=== PATIENT | female | born 1945 | race Caucasian/White ===

== ENCOUNTER → 2017-04-08 | Outpatient (CLI) | payer MEDICARE ==
[~2017-04-08] MED LIST: ACET325 PO; ALBU3IS INH; ALBU90OI; ALBU90OI INH; AMLO5 PO; ANORO ELLIPTA1 EACH; ANORO ELLIPTA1 EACH INH; ATOR40TA PO; BECLOMETHASONE; BUME2 PO; CALACE667G PO; CALCA500CH PO; Calcium Carb 51 EACH PO; Cinnamon500 MG PO; DALT10I SC; DARB200I SC; DILT120 PO; ELIQUIS5 MG PO; GABA100 PO; GABA300; HERBAL MEDS; HUMALOG JU100 UNIT/1 SC; HYDACE5 PO; HYDCHL25 PO; HYDR1TAB94 PO; Hair, Skin & N1 EACH PO; LABE200; LABE200 PO; LEVOFLOXACIN250 MG PO; LISHYD1012 PO; LOSA50 PO; Lasix40 MG PO; MOMENI; MULVITA; Mirapex0.25 MG PO; NORMODYNE; NYST100P TOP; Neurontin 300300 MG PO; Norco 5-325 Ta1 EACH PO; ONDA4 PO; OXYC5; OXYC5 PO; Omeprazole20 M1 PO; Oxycodone HCl5 M1 PO; PANT40 PO; PRAMIPEXOLE D0.25 MG PO; PRAV20 PO; PROHEAL PO; Pantoprazole So40 MG PO; Percocet 5-3251 EACH PO; QVAR; RANI150 PO; ROPI.25 PO; ROPI1 PO; ROXICODONE5 MG PO; Renvela800 MG PO; SACC250C PO; SERT100 PO; SERT50 PO; SERTRALINE HCL; SEVEC800 PO; SIMV5 PO; SODBIC650 PO; TIOT18; TRAM50 PO; VERA240ERB; VOL-NATE TABLE1 EACH; Verapamil ER100 MG PO; WARF3 PO
== END | disposition home or self-care (01) ==
LOC: LAB EV 11:22
DX: R30.0 Dysuria (principal)
CPT/HCPCS: 87077; 87086; 87186

== ENCOUNTER → 2017-05-16 | Outpatient (CLI) | payer MEDICARE | END | disposition home or self-care (01) | LOC: LAB EV 11:36 | DX: N30.01 Acute cystitis with hematuria (principal) | CPT/HCPCS: 87077; 87086; 87186 ==

== ENCOUNTER → 2017-07-06 | Outpatient (CLI) | payer MEDICARE ==
[~2017-07-06] MED LIST changes: -ALBU3IS INH; -AMLO5 PO; -ATOR40TA PO; -Calcium Carb 51 EACH PO; -DILT120 PO; -ELIQUIS5 MG PO; -GABA100 PO; -HUMALOG JU100 UNIT/1 SC; -Hair, Skin & N1 EACH PO; -LEVOFLOXACIN250 MG PO; -Lasix40 MG PO; -Mirapex0.25 MG PO; -ONDA4 PO; -OXYC5; -OXYC5 PO; -Oxycodone HCl5 M1 PO; -PANT40 PO; -PRAMIPEXOLE D0.25 MG PO; -PROHEAL PO; -Pantoprazole So40 MG PO; -ROPI1 PO; -ROXICODONE5 MG PO; -Renvela800 MG PO; -SACC250C PO; -SERT50 PO; +VOL-CARE RX TA1 EACH PO; -VOL-NATE TABLE1 EACH; -WARF3 PO
[2017-07-06 11:05] LABS: Bilirubin, Urine Neg (Neg); Blood, Urine 4+ (Neg); Glucose Qualitative, Urine Neg (Neg); Ketones, Urine Neg (Neg); Leukocyte Esterase, Urine 3+ (Neg); Nitrite, Urine Neg (Neg); Protein, Urine 3+ (Neg); Specific Gravity, Urine 1.015 (1.003-1.022); Urobilinogen, Urine NORM (Normal)
[2017-07-06 11:37] LABS: Appearance, Urine Cloudy (Clear); Color, Urine Yellow (P-Yellow)
[2017-07-06 11:38] LABS: Squamous Epithelial Cells Few /hpf (Few); White Blood Cells, Urine TNTC /hpf (0-5)
[2017-07-06 11:40] LABS: Red Blood Cells, Urine 25-50 /hpf (0-2)
[2017-07-06 11:41] LABS: Bacteria Rare /hpf
== END | disposition home or self-care (01) ==
LOC: LAB SHORT 10:52 → LAB 10:52
PROVIDERS: Internal Medicine
DX: R39.15 Urgency of urination (principal)
CPT/HCPCS: 81001; 87086

== ENCOUNTER → 2017-07-17 | Outpatient (CLI) | payer MEDICARE ==
[2017-07-17 12:42] LABS: Appearance, Urine Clear (Clear); Bilirubin, Urine Neg (Neg); Blood, Urine 2+ (Neg); Color, Urine Yellow (P-Yellow); Glucose Qualitative, Urine Neg (Neg); Ketones, Urine Neg (Neg); Leukocyte Esterase, Urine 1+ (Neg); Nitrite, Urine Neg (Neg); Protein, Urine 3+ (Neg); Specific Gravity, Urine 1.015 (1.003-1.022); Urobilinogen, Urine NORM (Normal)
[2017-07-17 12:54] LABS: Bacteria Rare /hpf; Squamous Epithelial Cells Few /hpf (Few)
== END ==
LOC: LAB 10:20 → LAB SHORT 10:20
PROVIDERS: Internal Medicine
DX: N39.0 Urinary tract infection, site not specified (principal)
CPT/HCPCS: 81001; 87077; 87086

== ENCOUNTER → 2017-08-12 | Outpatient (CLI) | payer MEDICARE ==
[2017-08-12 10:22] LABS: Bilirubin, Urine Neg (Neg); Blood, Urine 5+ (Neg); Glucose Qualitative, Urine Neg (Neg); Ketones, Urine Neg (Neg); Leukocyte Esterase, Urine 3+ (Neg); Nitrite, Urine Neg (Neg); Protein, Urine 3+ (Neg); Urobilinogen, Urine NORM (Normal)
[2017-08-12 10:33] LABS: Appearance, Urine Cloudy (Clear); Color, Urine Brown (P-Yellow); Red Blood Cells, Urine TNTC /hpf (0-2)
[2017-08-12 10:34] LABS: White Blood Cells, Urine 25-50 /hpf (0-5)
[2017-08-12 10:35] LABS: Squamous Epithelial Cells Few /hpf (Few)
[2017-08-12 10:36] LABS: Bacteria Rare /hpf; Renal Epithelial Rare /hpf (0-Rare); Transitional Epithelial Cells Few /hpf (0-Rare)
== END | disposition home or self-care (01) ==
LOC: LAB DAV 10:08
PROVIDERS: Internal Medicine
DX: N39.0 Urinary tract infection, site not specified (principal)
CPT/HCPCS: 81001

== ENCOUNTER → 2017-09-19 | Outpatient (CLI) | payer MEDICARE ==
[2017-09-19 11:51] LABS: Bilirubin, Urine Neg (Neg); Blood, Urine 2+ (Neg); Glucose Qualitative, Urine Neg (Neg); Ketones, Urine Neg (Neg); Leukocyte Esterase, Urine 2+ (Neg); Nitrite, Urine Neg (Neg); Protein, Urine 3+ (Neg); Specific Gravity, Urine 1.015 (1.003-1.022); Urobilinogen, Urine NORM (Normal)
[2017-09-19 12:02] LABS: Appearance, Urine Clear (Clear); Color, Urine Pale Yellow (P-Yellow)
[2017-09-19 12:04] LABS: Bacteria Few /hpf; Squamous Epithelial Cells Few /hpf (Few)
== END ==
LOC: LAB SHORT 10:28 → LAB EV 10:28
PROVIDERS: Urology
DX: Z09 Encounter for follow-up examination after completed treatment for conditions other than malignant neoplasm (principal); Z87.440 Personal history of urinary (tract) infections
CPT/HCPCS: 81001; 87086

== ENCOUNTER → 2017-10-26 | Outpatient (CLI) | payer MEDICARE ==
[2017-10-26 10:12] LABS: BASOPHILS ABSOLUTE AUTO 0.05 K/mm3 (0.00-0.23); BASOPHILS PERCENT AUTO 1 % (0-2); EOSINOPHILS ABSOLUTE AUTO 0.38 K/mm3 (0.00-0.68); EOSINOPHILS PERCENT AUTO 4 % (0-6); Hematocrit 30.7 % (33.0-51.0); Hemoglobin 9.4 g/dL (11.5-16.0); IMMATURE GRAN ABSOLUTE AUTO 0.11 K/mm3 (0.00-0.10); IMMATURE GRAN PERCENT AUTO 1 % (0-1); LYMPHOCYTES ABSOLUTE AUTO 1.32 K/mm3 (0.84-5.20); LYMPHOCYTES PERCENT AUTO 12 % (21-46); MONOCYTES ABSOLUTE AUTO 0.51 K/mm3 (0.16-1.47); MONOCYTES PERCENT AUTO 5 % (4-13); Mean Corpuscular HGB 30.5 pg (26.0-34.0); Mean Corpuscular HGB Conc 30.6 g/dL (31.5-36.5); Mean Corpuscular Volume 100 fL (80-100); Mean Platelet Volume 9.9 fL (9.1-12.4); NEUTROPHILS PERCENT AUTO 78 % (41-73); Platelet Count 224 K/mm3 (150-400); RDW Coefficient Variation 19.1 % (11.7-14.2); RDW Standard Deviation 69.6 fL (35.1-46.3); Red Blood Cell Count 3.08 M/mm3 (3.80-5.20); White Blood Cell Count 10.77 K/mm3 (4.00-11.30)
== END | disposition home or self-care (01) ==
LOC: LAB SHORT 09:51 → LAB 09:51
PROVIDERS: Internal Medicine
DX: I50.9 Heart failure, unspecified (principal)
CPT/HCPCS: 83880; 85025

== ENCOUNTER 2017-12-04 14:58 | Inpatient (IN) | payer MEDICARE ==
[~2017-12-04] VITALS: Ht 157.5 cm; Wt 101.5 kg
[~2017-12-04 14:58] MED LIST changes: +AMLO5 PO; +ATOR40TA PO; +DILT120 PO; +ELIQUIS5 MG PO; +GABA100 PO; +Pantoprazole So40 MG PO; +ROXICODONE5 MG PO; +SERT50 PO; -VOL-CARE RX TA1 EACH PO; +VOL-NATE TABLE1 EACH
[2017-12-04 16:00] LABS: BASOPHILS ABSOLUTE AUTO 0.03 K/mm3 (0.00-0.23); BASOPHILS PERCENT AUTO 0 % (0-2); EOSINOPHILS ABSOLUTE AUTO 0.32 K/mm3 (0.00-0.68); EOSINOPHILS PERCENT AUTO 4 % (0-6); Hematocrit 28.2 % (33.0-51.0); Hemoglobin 8.6 g/dL (11.5-16.0); IMMATURE GRAN ABSOLUTE AUTO 0.03 K/mm3 (0.00-0.10); IMMATURE GRAN PERCENT AUTO 0 % (0-1); LYMPHOCYTES ABSOLUTE AUTO 2.53 K/mm3 (0.84-5.20); LYMPHOCYTES PERCENT AUTO 31 % (21-46); MONOCYTES ABSOLUTE AUTO 0.76 K/mm3 (0.16-1.47); MONOCYTES PERCENT AUTO 9 % (4-13); Mean Corpuscular HGB 31.4 pg (26.0-34.0); Mean Corpuscular HGB Conc 30.5 g/dL (31.5-36.5); Mean Corpuscular Volume 103 fL (80-100); Mean Platelet Volume 9.6 fL (9.1-12.4); NEUTROPHILS PERCENT AUTO 54 % (41-73); Platelet Count 211 K/mm3 (150-400); RDW Coefficient Variation 18.7 % (11.7-14.2); RDW Standard Deviation 70.2 fL (35.1-46.3); Red Blood Cell Count 2.74 M/mm3 (3.80-5.20); White Blood Cell Count 8.07 K/mm3 (4.00-11.30)
[2017-12-04 16:17] LABS: Prothrombin Time Results 57.7 Sec (9.7-11.5)
[2017-12-04 16:25] LABS: Albumin, Blood 2.7 g/dL (3.4-5.0); Albumin/Globulin Ratio 0.6 (0.8-1.8); Bilirubin, Total 0.5 mg/dL (0.1-1.0); Bun/Creatinine Ratio 3.8 (12.0-20.0); Calcium, Blood 8.7 mg/dL (8.5-10.1); Creatinine, Blood 2.6 mg/dL (0.40-1.00); Globulin, Blood 4.5 g/dL (2.2-4.0); Potassium, Blood 3.5 mmol/L (3.5-5.5); Total Protein, Blood 7.2 g/dL (6.4-8.2)
[2017-12-04 16:30] LABS: International Normalized Ratio 6.21
[2017-12-04] MEDS ORDERED: PANT40 PO (19:28)
[2017-12-04] MEDS ORDERED: DILT120 PO (19:30)
[2017-12-04] MEDS ORDERED: ROPI1 PO (19:30)
[2017-12-04] MEDS ORDERED: OXYC5 (19:31)
[2017-12-04] MEDS ORDERED: Hair, Skin & N1 EACH PO (19:32)
[2017-12-04 22:16] LABS: Hematocrit 27.5 % (33.0-51.0); Hemoglobin 8.6 g/dL (11.5-16.0)
[2017-12-05 03:56] LABS: BASOPHILS ABSOLUTE AUTO 0.05 K/mm3 (0.00-0.23); BASOPHILS PERCENT AUTO 1 % (0-2); EOSINOPHILS ABSOLUTE AUTO 0.36 K/mm3 (0.00-0.68); EOSINOPHILS PERCENT AUTO 5 % (0-6); Hemoglobin 7.6 g/dL (11.5-16.0); IMMATURE GRAN ABSOLUTE AUTO 0.03 K/mm3 (0.00-0.10); IMMATURE GRAN PERCENT AUTO 0 % (0-1); LYMPHOCYTES ABSOLUTE AUTO 2.89 K/mm3 (0.84-5.20); LYMPHOCYTES PERCENT AUTO 36 % (21-46); MONOCYTES ABSOLUTE AUTO 0.87 K/mm3 (0.16-1.47); MONOCYTES PERCENT AUTO 11 % (4-13); Mean Corpuscular HGB 31.7 pg (26.0-34.0); Mean Corpuscular HGB Conc 30.4 g/dL (31.5-36.5); Mean Corpuscular Volume 104 fL (80-100); Mean Platelet Volume 9.7 fL (9.1-12.4); NEUTROPHILS ABSOLUTE AUTO 3.82 K/mm3 (1.96-9.15); NEUTROPHILS PERCENT AUTO 48 % (41-73); Platelet Count 177 K/mm3 (150-400); RDW Coefficient Variation 18.8 % (11.7-14.2); RDW Standard Deviation 71.7 fL (35.1-46.3); White Blood Cell Count 8.02 K/mm3 (4.00-11.30)
[2017-12-05 04:15] LABS: Albumin, Blood 2.7 g/dL (3.4-5.0); Albumin/Globulin Ratio 0.6 (0.8-1.8); Bilirubin, Total 0.6 mg/dL (0.1-1.0); Calcium, Blood 8.7 mg/dL (8.5-10.1); Creatinine, Blood 3.19 mg/dL (0.40-1.00); Globulin, Blood 4.3 g/dL (2.2-4.0); Potassium, Blood 3.5 mmol/L (3.5-5.5)
[2017-12-05 04:52] LABS: International Normalized Ratio 1.59
[2017-12-05 11:42] LABS: Hematocrit 27.9 % (33.0-51.0); Hemoglobin 8.7 g/dL (11.5-16.0)
[2017-12-05] MEDS ORDERED: WARF3 PO (16:31)
[2017-12-05 17:39] LABS: International Normalized Ratio 1.31; Prothrombin Time Results 13.3 Sec (9.7-11.5)
== END 2017-12-05 17:45 | disposition home or self-care (01) | DRG 393 ==
LOC: ER 14:58 → PCU 17:08
PROVIDERS: Emergency Medicine; Family Medicine; Internal Medicine
PROC: 5A1D70Z Performance of Urinary Filtration, Intermittent, Less than 6 Hours Per Day (ICD-10-PCS; principal; 2017-12-05)
PROC: 30233N1 Transfusion of Nonautologous Red Blood Cells into Peripheral Vein, Percutaneous Approach (ICD-10-PCS; 2017-12-05)
DX: K64.8 Other hemorrhoids (principal); N18.6 End stage renal disease; D68.32 Hemorrhagic disorder due to extrinsic circulating anticoagulants; Z68.41 Body mass index [BMI] 40.0-44.9, adult; D62 Acute posthemorrhagic anemia; I13.2 Hypertensive heart and chronic kidney disease with heart failure and with stage 5 chronic kidney disease, or end stage renal disease; I48.91 Unspecified atrial fibrillation; J44.9 Chronic obstructive pulmonary disease, unspecified; M19.90 Unspecified osteoarthritis, unspecified site; Z99.2 Dependence on renal dialysis; I25.10 Atherosclerotic heart disease of native coronary artery without angina pectoris; E78.5 Hyperlipidemia, unspecified; Z87.891 Personal history of nicotine dependence; D63.1 Anemia in chronic kidney disease; E66.01 Morbid (severe) obesity due to excess calories; T45.511A Poisoning by anticoagulants, accidental (unintentional), initial encounter; Z86.73 Personal history of transient ischemic attack (TIA), and cerebral infarction without residual deficits; E11.22 Type 2 diabetes mellitus with diabetic chronic kidney disease
CPT/HCPCS: 36415; 80053; 82272; 82947; 85014; 85018; 85025; 85610; 86850; 86900; 86901; 86923; 93005; 93010; 96365; 96368; 99285-25; C9113; J3430; P9016; P9059

== ENCOUNTER 2018-01-10 20:37 | Emergency (ER) | payer MEDICARE ==
[~2018-01-10] VITALS: Ht 160 cm; Wt 97.5 kg
[~2018-01-10 20:37] MED LIST changes: +Hair, Skin & N1 EACH PO; +OXYC5; +PANT40 PO; +ROPI1 PO; +WARF3 PO
[2018-01-10 21:29] LABS: BASOPHILS ABSOLUTE AUTO 0.03 K/mm3 (0.00-0.23); BASOPHILS PERCENT AUTO 1 % (0-2); EOSINOPHILS ABSOLUTE AUTO 0.06 K/mm3 (0.00-0.68); EOSINOPHILS PERCENT AUTO 1 % (0-6); Hematocrit 33.3 % (33.0-51.0); Hemoglobin 10.1 g/dL (11.5-16.0); IMMATURE GRAN ABSOLUTE AUTO 0.01 K/mm3 (0.00-0.10); IMMATURE GRAN PERCENT AUTO 0 % (0-1); LYMPHOCYTES PERCENT AUTO 41 % (21-46); MONOCYTES ABSOLUTE AUTO 0.86 K/mm3 (0.16-1.47); MONOCYTES PERCENT AUTO 15 % (4-13); Mean Corpuscular HGB 32.6 pg (26.0-34.0); Mean Corpuscular HGB Conc 30.3 g/dL (31.5-36.5); Mean Corpuscular Volume 107 fL (80-100); Mean Platelet Volume 10.8 fL (9.1-12.4); NEUTROPHILS ABSOLUTE AUTO 2.35 K/mm3 (1.96-9.15); NEUTROPHILS PERCENT AUTO 42 % (41-73); Platelet Count 111 K/mm3 (150-400); RDW Coefficient Variation 19.8 % (11.7-14.2); RDW Standard Deviation 78.3 fL (35.1-46.3); White Blood Cell Count 5.61 K/mm3 (4.00-11.30)
[2018-01-10 21:49] LABS: Bun/Creatinine Ratio 5.7 (12.0-20.0); Calcium, Blood 9.3 mg/dL (8.5-10.1); Creatinine, Blood 5.64 mg/dL (0.40-1.00); Potassium, Blood 3.6 mmol/L (3.5-5.5)
[2018-01-10 21:50] LABS: International Normalized Ratio 3.03; Prothrombin Time Results 29.3 Sec (9.7-11.5)
== END 2018-01-10 23:00 | disposition home or self-care (01) ==
LOC: ER 20:37
PROVIDERS: Emergency Medicine
DX: M25.561 Pain in right knee (principal); M25.562 Pain in left knee; M25.511 Pain in right shoulder; W07.XXXA Fall from chair, initial encounter; J44.9 Chronic obstructive pulmonary disease, unspecified; E66.01 Morbid (severe) obesity due to excess calories; E11.9 Type 2 diabetes mellitus without complications; Z88.8 Allergy status to other drugs, medicaments and biological substances; Z79.899 Other long term (current) drug therapy; Z79.01 Long term (current) use of anticoagulants
CPT/HCPCS: 36415; 70450; 73030; 73562-LT; 73562-RT; 80048; 85025; 85610; 99284-25

== ENCOUNTER 2018-01-24 07:03 | Observation (INO) | payer MEDICARE ==
[~2018-01-24] VITALS: Ht 160 cm; Wt 97.4 kg
[~2018-01-24 07:03] MED LIST changes: +LEVOFLOXACIN250 MG PO
[2018-01-24 07:50] LABS: Source, Urine Voided
[2018-01-24 08:02] LABS: BASOPHILS ABSOLUTE AUTO 0.03 K/mm3 (0.00-0.23); BASOPHILS PERCENT AUTO 0 % (0-2); EOSINOPHILS ABSOLUTE AUTO 0.06 K/mm3 (0.00-0.68); EOSINOPHILS PERCENT AUTO 1 % (0-6); Hematocrit 32.4 % (33.0-51.0); Hemoglobin 9.9 g/dL (11.5-16.0); IMMATURE GRAN ABSOLUTE AUTO 0.04 K/mm3 (0.00-0.10); IMMATURE GRAN PERCENT AUTO 1 % (0-1); LYMPHOCYTES ABSOLUTE AUTO 2.18 K/mm3 (0.84-5.20); LYMPHOCYTES PERCENT AUTO 28 % (21-46); MONOCYTES ABSOLUTE AUTO 0.92 K/mm3 (0.16-1.47); MONOCYTES PERCENT AUTO 12 % (4-13); Mean Corpuscular HGB 32.2 pg (26.0-34.0); Mean Corpuscular HGB Conc 30.6 g/dL (31.5-36.5); Mean Platelet Volume 10.8 fL (9.1-12.4); NEUTROPHILS ABSOLUTE AUTO 4.52 K/mm3 (1.96-9.15); NEUTROPHILS PERCENT AUTO 58 % (41-73); Platelet Count 128 K/mm3 (150-400); RDW Coefficient Variation 19.7 % (11.7-14.2); RDW Standard Deviation 75.1 fL (35.1-46.3); Red Blood Cell Count 3.07 M/mm3 (3.80-5.20); White Blood Cell Count 7.75 K/mm3 (4.00-11.30)
[2018-01-24 08:02] LABS: Bilirubin, Urine Neg (Neg); Blood, Urine 5+ (Neg); Glucose Qualitative, Urine Neg (Neg); Ketones, Urine 1+ (Neg); Leukocyte Esterase, Urine 3+ (Neg); Nitrite, Urine Neg (Neg); Protein, Urine 3+ (Neg); Urobilinogen, Urine 1+ (Normal)
[2018-01-24 08:03] LABS: Mean Corpuscular Volume 106 fL (80-100)
[2018-01-24 08:13] LABS: Appearance, Urine Hazy (Clear); Bacteria Few /hpf; Color, Urine Yellow (P-Yellow); Red Blood Cells, Urine 50-100 /hpf (0-2); Squamous Epithelial Cells Mod /hpf (Few); White Blood Cells, Urine 50-100 /hpf (0-5)
[2018-01-24 08:15] LABS: Albumin/Globulin Ratio 0.8 (0.8-1.8); Bun/Creatinine Ratio 5.8 (12.0-20.0); Calcium, Blood 9.1 mg/dL (8.5-10.1); Creatinine, Blood 6.74 mg/dL (0.40-1.00); Globulin, Blood 3.8 g/dL (2.2-4.0); International Normalized Ratio 3.72; Potassium, Blood 4.3 mmol/L (3.5-5.5); Prothrombin Time Results 35.6 Sec (9.7-11.5); Total Protein, Blood 6.8 g/dL (6.4-8.2); Troponin I 0.08 ng/mL (0.000-0.040)
[2018-01-24 08:29] LABS: Creatine Kinase MB 2.8 ng/mL (0.0-3.6); Creatine Kinase MB Index 1.4 (0.0-4.0)
[2018-01-24] MEDS ORDERED: PRAMIPEXOLE D0.25 MG PO (09:28)
[2018-01-24] MEDS ORDERED: ATOR40TA PO (09:28)
[2018-01-25 04:25] LABS: BASOPHILS ABSOLUTE AUTO 0.03 K/mm3 (0.00-0.23); BASOPHILS PERCENT AUTO 0 % (0-2); EOSINOPHILS PERCENT AUTO 2 % (0-6); IMMATURE GRAN ABSOLUTE AUTO 0.05 K/mm3 (0.00-0.10); IMMATURE GRAN PERCENT AUTO 1 % (0-1); LYMPHOCYTES ABSOLUTE AUTO 2.04 K/mm3 (0.84-5.20); LYMPHOCYTES PERCENT AUTO 30 % (21-46); MONOCYTES ABSOLUTE AUTO 0.86 K/mm3 (0.16-1.47); MONOCYTES PERCENT AUTO 13 % (4-13); Mean Corpuscular HGB 32.4 pg (26.0-34.0); Mean Corpuscular Volume 108 fL (80-100); NEUTROPHILS ABSOLUTE AUTO 3.75 K/mm3 (1.96-9.15); NEUTROPHILS PERCENT AUTO 55 % (41-73); Platelet Count 131 K/mm3 (150-400); RDW Coefficient Variation 19.6 % (11.7-14.2); Red Blood Cell Count 2.78 M/mm3 (3.80-5.20); White Blood Cell Count 6.83 K/mm3 (4.00-11.30)
[2018-01-25 04:54] LABS: Alanine Aminotransfer (ALT/SGP 46 U/L (12-78); Albumin, Blood 2.7 g/dL (3.4-5.0); Albumin/Globulin Ratio 0.7 (0.8-1.8); Alk Phos 71 U/L (50-136); Anion Gap 8 mmol/L (6-16); Aspartate Aminotrans (AST/SGOT 44 U/L (12-37); Bilirubin, Total 0.9 mg/dL (0.1-1.0); Blood Urea Nitrogen 24 mg/dL (8-24); Bun/Creatinine Ratio 5.1 (12.0-20.0); CO2, Blood 33 mmol/L (21-32); Calcium, Blood 8.8 mg/dL (8.5-10.1); Chloride, Blood 99 mmol/L (98-108); Creatinine, Blood 4.73 mg/dL (0.40-1.00); Globulin, Blood 3.8 g/dL (2.2-4.0); Glomerular Filtration Rate 10 (60-); Glucose, Blood 136 mg/dL (70-99); Phosphorus, Blood 3.2 mg/dL (2.5-4.9); Potassium, Blood 3.9 mmol/L (3.5-5.5); Sodium, Blood 140 mmol/L (136-145); Total Protein, Blood 6.5 g/dL (6.4-8.2)
[2018-01-25 05:20] LABS: International Normalized Ratio 2.69; Prothrombin Time Results 26.2 Sec (9.7-11.5)
[2018-01-26 05:37] LABS: International Normalized Ratio 2.27; Prothrombin Time Results 22.3 Sec (9.7-11.5)
[2018-01-27 05:58] LABS: Hematocrit 30.8 % (33.0-51.0); Hemoglobin 9.1 g/dL (11.5-16.0)
[2018-01-27 06:20] LABS: International Normalized Ratio 1.86; Prothrombin Time Results 18.5 Sec (9.7-11.5)
[2018-01-27 06:21] LABS: Albumin, Blood 2.7 g/dL (3.4-5.0); Anion Gap 11 mmol/L (6-16); Blood Urea Nitrogen 27 mg/dL (8-24); Bun/Creatinine Ratio 5.6 (12.0-20.0); CO2, Blood 29 mmol/L (21-32); Calcium, Blood 9.2 mg/dL (8.5-10.1); Chloride, Blood 98 mmol/L (98-108); Creatinine, Blood 4.86 mg/dL (0.40-1.00); Glomerular Filtration Rate 9 (60-); Glucose, Blood 107 mg/dL (70-99); Phosphorus, Blood 4.3 mg/dL (2.5-4.9); Potassium, Blood 4.4 mmol/L (3.5-5.5); Sodium, Blood 138 mmol/L (136-145)
[2018-01-28 04:56] LABS: Hematocrit 31.3 % (33.0-51.0); Hemoglobin 9.3 g/dL (11.5-16.0)
[2018-01-28 05:08] LABS: International Normalized Ratio 1.71; Prothrombin Time Results 17.1 Sec (9.7-11.5)
[2018-01-28 05:27] LABS: Albumin, Blood 2.6 g/dL (3.4-5.0); Anion Gap 11 mmol/L (6-16); Blood Urea Nitrogen 22 mg/dL (8-24); Bun/Creatinine Ratio 5.9 (12.0-20.0); CO2, Blood 27 mmol/L (21-32); Calcium, Blood 9.1 mg/dL (8.5-10.1); Chloride, Blood 97 mmol/L (98-108); Creatinine, Blood 3.75 mg/dL (0.40-1.00); Glomerular Filtration Rate 13 (60-); Glucose, Blood 100 mg/dL (70-99); Phosphorus, Blood 3.6 mg/dL (2.5-4.9); Potassium, Blood 4.3 mmol/L (3.5-5.5); Sodium, Blood 135 mmol/L (136-145)
[2018-01-29 05:39] LABS: Hematocrit 32.6 % (33.0-51.0); Hemoglobin 9.7 g/dL (11.5-16.0)
[2018-01-29 05:58] LABS: Prothrombin Time Results 19.8 Sec (9.7-11.5)
[2018-01-29 06:24] LABS: Albumin, Blood 2.7 g/dL (3.4-5.0); Anion Gap 12 mmol/L (6-16); Blood Urea Nitrogen 31 mg/dL (8-24); Bun/Creatinine Ratio 6.7 (12.0-20.0); CO2, Blood 27 mmol/L (21-32); Chloride, Blood 98 mmol/L (98-108); Creatinine, Blood 4.64 mg/dL (0.40-1.00); Glomerular Filtration Rate 10 (60-); Glucose, Blood 103 mg/dL (70-99); Magnesium, Blood 2.2 mg/dL (1.6-2.4); Phosphorus, Blood 4.1 mg/dL (2.5-4.9); Potassium, Blood 4.4 mmol/L (3.5-5.5); Sodium, Blood 137 mmol/L (136-145)
[2018-01-30 05:01] LABS: Hematocrit 32.9 % (33.0-51.0)
[2018-01-30 05:13] LABS: International Normalized Ratio 2.54; Prothrombin Time Results 24.8 Sec (9.7-11.5)
[2018-01-30 05:21] LABS: Albumin, Blood 2.7 g/dL (3.4-5.0); Anion Gap 8 mmol/L (6-16); Blood Urea Nitrogen 20 mg/dL (8-24); Bun/Creatinine Ratio 5.9 (12.0-20.0); CO2, Blood 32 mmol/L (21-32); Calcium, Blood 8.9 mg/dL (8.5-10.1); Chloride, Blood 95 mmol/L (98-108); Creatinine, Blood 3.38 mg/dL (0.40-1.00); Glomerular Filtration Rate 14 (60-); Glucose, Blood 102 mg/dL (70-99); Phosphorus, Blood 3.2 mg/dL (2.5-4.9); Potassium, Blood 3.7 mmol/L (3.5-5.5); Sodium, Blood 135 mmol/L (136-145)
[2018-01-31 05:40] LABS: BASOPHILS ABSOLUTE AUTO 0.03 K/mm3 (0.00-0.23); BASOPHILS PERCENT AUTO 1 % (0-2); EOSINOPHILS ABSOLUTE AUTO 0.16 K/mm3 (0.00-0.68); EOSINOPHILS PERCENT AUTO 3 % (0-6); Hemoglobin 10.9 g/dL (11.5-16.0); IMMATURE GRAN ABSOLUTE AUTO 0.01 K/mm3 (0.00-0.10); IMMATURE GRAN PERCENT AUTO 0 % (0-1); LYMPHOCYTES ABSOLUTE AUTO 1.89 K/mm3 (0.84-5.20); LYMPHOCYTES PERCENT AUTO 37 % (21-46); MONOCYTES ABSOLUTE AUTO 0.45 K/mm3 (0.16-1.47); MONOCYTES PERCENT AUTO 9 % (4-13); Mean Corpuscular HGB 32.4 pg (26.0-34.0); Mean Corpuscular HGB Conc 30.3 g/dL (31.5-36.5); Mean Corpuscular Volume 107 fL (80-100); Mean Platelet Volume 10.9 fL (9.1-12.4); NEUTROPHILS ABSOLUTE AUTO 2.54 K/mm3 (1.96-9.15); NEUTROPHILS PERCENT AUTO 50 % (41-73); Platelet Count 155 K/mm3 (150-400); RDW Coefficient Variation 19.6 % (11.7-14.2); Red Blood Cell Count 3.36 M/mm3 (3.80-5.20); White Blood Cell Count 5.08 K/mm3 (4.00-11.30)
[2018-01-31 05:48] LABS: International Normalized Ratio 3.04; Prothrombin Time Results 29.4 Sec (9.7-11.5)
[2018-01-31 06:04] LABS: Albumin, Blood 2.7 g/dL (3.4-5.0); Albumin/Globulin Ratio 0.6 (0.8-1.8); Bilirubin, Total 1.2 mg/dL (0.1-1.0); Bun/Creatinine Ratio 6.3 (12.0-20.0); Calcium, Blood 9.2 mg/dL (8.5-10.1); Creatinine, Blood 4.29 mg/dL (0.40-1.00); Globulin, Blood 4.5 g/dL (2.2-4.0); Potassium, Blood 3.9 mmol/L (3.5-5.5); Total Protein, Blood 7.2 g/dL (6.4-8.2)
[2018-02-01 06:27] LABS: International Normalized Ratio 3.47; Prothrombin Time Results 33.3 Sec (9.7-11.5)
[2018-02-01 12:03] LABS: Hematocrit 32.5 % (33.0-51.0); Hemoglobin 10.1 g/dL (11.5-16.0)
[2018-02-01 12:12] LABS: Albumin, Blood 2.7 g/dL (3.4-5.0); Anion Gap 11 mmol/L (6-16); Blood Urea Nitrogen 32 mg/dL (8-24); Bun/Creatinine Ratio 6.3 (12.0-20.0); CO2, Blood 28 mmol/L (21-32); Calcium, Blood 9.1 mg/dL (8.5-10.1); Chloride, Blood 98 mmol/L (98-108); Creatinine, Blood 5.09 mg/dL (0.40-1.00); Glomerular Filtration Rate 9 (60-); Glucose, Blood 92 mg/dL (70-99); Phosphorus, Blood 3.6 mg/dL (2.5-4.9); Potassium, Blood 4.2 mmol/L (3.5-5.5); Sodium, Blood 137 mmol/L (136-145)
[2018-02-02 06:08] LABS: International Normalized Ratio 2.82; Prothrombin Time Results 27.4 Sec (9.7-11.5)
[2018-02-03 05:50] LABS: BASOPHILS ABSOLUTE AUTO 0.02 K/mm3 (0.00-0.23); BASOPHILS PERCENT AUTO 0 % (0-2); EOSINOPHILS ABSOLUTE AUTO 0.16 K/mm3 (0.00-0.68); EOSINOPHILS PERCENT AUTO 3 % (0-6); Hematocrit 32.7 % (33.0-51.0); IMMATURE GRAN ABSOLUTE AUTO 0.03 K/mm3 (0.00-0.10); IMMATURE GRAN PERCENT AUTO 1 % (0-1); LYMPHOCYTES ABSOLUTE AUTO 1.49 K/mm3 (0.84-5.20); LYMPHOCYTES PERCENT AUTO 23 % (21-46); MONOCYTES ABSOLUTE AUTO 0.57 K/mm3 (0.16-1.47); MONOCYTES PERCENT AUTO 9 % (4-13); Mean Corpuscular HGB 31.7 pg (26.0-34.0); Mean Corpuscular HGB Conc 30.6 g/dL (31.5-36.5); Mean Corpuscular Volume 104 fL (80-100); Mean Platelet Volume 10.4 fL (9.1-12.4); NEUTROPHILS ABSOLUTE AUTO 4.25 K/mm3 (1.96-9.15); NEUTROPHILS PERCENT AUTO 65 % (41-73); Platelet Count 137 K/mm3 (150-400); RDW Coefficient Variation 19.1 % (11.7-14.2); RDW Standard Deviation 71.7 fL (35.1-46.3); Red Blood Cell Count 3.15 M/mm3 (3.80-5.20); White Blood Cell Count 6.52 K/mm3 (4.00-11.30)
[2018-02-03 06:02] LABS: International Normalized Ratio 2.55; Prothrombin Time Results 24.9 Sec (9.7-11.5)
[2018-02-03 06:10] LABS: Bun/Creatinine Ratio 5.9 (12.0-20.0); Creatinine, Blood 4.58 mg/dL (0.40-1.00); Potassium, Blood 4.2 mmol/L (3.5-5.5)
[2018-02-04 05:26] LABS: International Normalized Ratio 2.77; Prothrombin Time Results 26.9 Sec (9.7-11.5)
[2018-02-04 05:48] LABS: Bun/Creatinine Ratio 5.2 (12.0-20.0); Calcium, Blood 9.3 mg/dL (8.5-10.1); Creatinine, Blood 3.44 mg/dL (0.40-1.00); Potassium, Blood 3.9 mmol/L (3.5-5.5)
[2018-02-05 05:16] LABS: International Normalized Ratio 3.35; Prothrombin Time Results 32.2 Sec (9.7-11.5)
[2018-02-05 05:27] LABS: Bun/Creatinine Ratio 5.4 (12.0-20.0); Calcium, Blood 9.5 mg/dL (8.5-10.1); Creatinine, Blood 4.44 mg/dL (0.40-1.00); Potassium, Blood 4.1 mmol/L (3.5-5.5)
[2018-02-05 11:06] LABS: Hematocrit 34.7 % (33.0-51.0); Hemoglobin 10.6 g/dL (11.5-16.0)
[2018-02-05] MEDS ORDERED: ACET325 PO (15:01)
[2018-02-05] MEDS ORDERED: Calcium Carb 51 EACH PO (15:02)
[2018-02-05] MEDS ORDERED: HUMALOG JU100 UNIT/1 SC (15:03)
[2018-02-05] MEDS ORDERED: ALBU3IS INH (15:04)
[2018-02-05] MEDS ORDERED: Oxycodone HCl5 M1 PO (15:06)
[2018-02-05] MEDS ORDERED: ONDA4 PO (15:07)
[2018-02-05] MEDS ORDERED: SEVEC800 PO (15:08)
[2018-02-05] MEDS ORDERED: SACC250C PO (15:08)
== END 2018-02-05 15:20 ==
LOC: ER 07:03 → MEDS 07:04 → ER 11:46 → MEDS 11:46
PROVIDERS: Family Medicine; Internal Medicine; Internal Medicine Nephrology; Pharmacist; Physician Assistant; Student in an Organized Health Care Education/Training Program
DX: R53.1 Weakness (principal); I12.0 Hypertensive chronic kidney disease with stage 5 chronic kidney disease or end stage renal disease; E11.22 Type 2 diabetes mellitus with diabetic chronic kidney disease; N18.6 End stage renal disease; D63.1 Anemia in chronic kidney disease; J44.9 Chronic obstructive pulmonary disease, unspecified; F32.9 Major depressive disorder, single episode, unspecified; E66.01 Morbid (severe) obesity due to excess calories; J96.21 Acute and chronic respiratory failure with hypoxia; M19.90 Unspecified osteoarthritis, unspecified site; E55.9 Vitamin D deficiency, unspecified; M75.101 Unspecified rotator cuff tear or rupture of right shoulder, not specified as traumatic; M47.812 Spondylosis without myelopathy or radiculopathy, cervical region; M43.6 Torticollis; I48.2 Chronic atrial fibrillation; G25.81 Restless legs syndrome; A04.72 Enterocolitis due to Clostridium difficile, not specified as recurrent; Z79.01 Long term (current) use of anticoagulants; Z88.8 Allergy status to other drugs, medicaments and biological substances; Z86.73 Personal history of transient ischemic attack (TIA), and cerebral infarction without residual deficits; Z87.440 Personal history of urinary (tract) infections; Z91.041 Radiographic dye allergy status; Z79.899 Other long term (current) drug therapy; Z68.37 Body mass index [BMI] 37.0-37.9, adult
CPT/HCPCS: 36415; 73030; 73221; 80048; 80053; 80069; 81001; 82550; 82553; 82947; 83735; 84100; 84484; 85014; 85018; 85025; 85610; 87077; 87086; 87186; 87205; 93005; 93010; 94640; 94760; 96374; 96375; 96376; 97110; 97116; 97162; 97166; 97530; 97535; 99285-25; G0257; G0378; G8978; G8979; G8987; G8988; J0696; J0881; J2405

== ENCOUNTER 2018-02-10 08:05 | Emergency (ER) | payer MEDICARE ==
[~2018-02-10] VITALS: Ht 160 cm; Wt 96.2 kg
[~2018-02-10 08:05] MED LIST changes: +ALBU3IS INH; +Calcium Carb 51 EACH PO; +HUMALOG JU100 UNIT/1 SC; +ONDA4 PO; +Oxycodone HCl5 M1 PO; +PRAMIPEXOLE D0.25 MG PO; +SACC250C PO
[2018-02-10] MEDS ORDERED: TRAM50 PO (08:29)
[2018-02-10] MEDS ORDERED: Renvela800 MG PO (08:30)
[2018-02-10 09:02] LABS: BASOPHILS ABSOLUTE AUTO 0.03 K/mm3 (0.00-0.23); BASOPHILS PERCENT AUTO 0 % (0-2); EOSINOPHILS ABSOLUTE AUTO 0.11 K/mm3 (0.00-0.68); EOSINOPHILS PERCENT AUTO 1 % (0-6); Hematocrit 35.4 % (33.0-51.0); Hemoglobin 10.6 g/dL (11.5-16.0); IMMATURE GRAN ABSOLUTE AUTO 0.04 K/mm3 (0.00-0.10); IMMATURE GRAN PERCENT AUTO 1 % (0-1); LYMPHOCYTES ABSOLUTE AUTO 1.87 K/mm3 (0.84-5.20); LYMPHOCYTES PERCENT AUTO 23 % (21-46); MONOCYTES ABSOLUTE AUTO 0.76 K/mm3 (0.16-1.47); MONOCYTES PERCENT AUTO 9 % (4-13); Mean Corpuscular HGB 31.3 pg (26.0-34.0); Mean Corpuscular HGB Conc 29.9 g/dL (31.5-36.5); Mean Corpuscular Volume 104 fL (80-100); Mean Platelet Volume 10.9 fL (9.1-12.4); NEUTROPHILS ABSOLUTE AUTO 5.34 K/mm3 (1.96-9.15); NEUTROPHILS PERCENT AUTO 66 % (41-73); Platelet Count 174 K/mm3 (150-400); RDW Coefficient Variation 18.4 % (11.7-14.2); RDW Standard Deviation 69.9 fL (35.1-46.3); Red Blood Cell Count 3.39 M/mm3 (3.80-5.20); White Blood Cell Count 8.15 K/mm3 (4.00-11.30)
[2018-02-10 09:15] LABS: International Normalized Ratio 2.48; Prothrombin Time Results 24.3 Sec (9.7-11.5)
[2018-02-10 09:34] LABS: Albumin, Blood 2.8 g/dL (3.4-5.0); Albumin/Globulin Ratio 0.6 (0.8-1.8); Bun/Creatinine Ratio 5.9 (12.0-20.0); Calcium, Blood 9.6 mg/dL (8.5-10.1); Creatinine, Blood 4.23 mg/dL (0.40-1.00); Globulin, Blood 4.5 g/dL (2.2-4.0); Potassium, Blood 5.1 mmol/L (3.5-5.5); Total Protein, Blood 7.3 g/dL (6.4-8.2); Troponin I 0.02 ng/mL (0.000-0.040)
[2018-02-11] MEDS ORDERED: SACC250C PO (01:16)
[2018-02-11] MEDS ORDERED: OXYC5 PO (01:19)
[2018-02-11] MEDS ORDERED: ONDA4 PO (05:20)
== END 2018-02-10 12:08 | disposition home or self-care (01) ==
LOC: ER 08:05
PROVIDERS: Physician Assistant
DX: I48.2 Chronic atrial fibrillation (principal); J44.9 Chronic obstructive pulmonary disease, unspecified; E11.9 Type 2 diabetes mellitus without complications; I48.91 Unspecified atrial fibrillation; I10 Essential (primary) hypertension; F32.9 Major depressive disorder, single episode, unspecified; N19 Unspecified kidney failure; Z88.8 Allergy status to other drugs, medicaments and biological substances; Z87.891 Personal history of nicotine dependence; Z99.2 Dependence on renal dialysis; Z91.09 Other allergy status, other than to drugs and biological substances; Z79.899 Other long term (current) drug therapy; Z79.4 Long term (current) use of insulin; Z79.51 Long term (current) use of inhaled steroids
CPT/HCPCS: 36415; 71045; 80053; 84484; 85025; 85610; 93005; 93010; 96374; 96375; 99285-25

== ENCOUNTER → 2018-03-17 | Outpatient (CLI) | payer MEDICARE ==
[~2018-03-17] MED LIST changes: +BUDE10.22 INH; +COMBIVENT RESPIM4 GM INH; +DILT180 PO; +ELIQUIS2.5 MG PO; +Flonase 0.05% N16 GM; +LEVFLO500 PO; +LIDO700A20 TOP; +Lasix40 MG PO; +Mirapex0.25 MG PO; +OXYC5 PO; +PREVNAR 13 SYR0.5 ML IM; +PROHEAL PO; +QUET25 PO; +Renvela800 MG PO; +WARF1 PO
[2018-03-17 14:32] LABS: Bilirubin, Urine Neg (Neg); Blood, Urine 5+ (Neg); Glucose Qualitative, Urine Neg (Neg); Ketones, Urine Neg (Neg); Leukocyte Esterase, Urine 3+ (Neg); Nitrite, Urine Neg (Neg); Protein, Urine 3+ (Neg); Urobilinogen, Urine NORM (Normal)
[2018-03-17 14:47] LABS: Appearance, Urine Cloudy (Clear); Color, Urine Yellow (P-Yellow)
[2018-03-17 14:49] LABS: Bacteria Many /hpf; Red Blood Cells, Urine 25-50 /hpf (0-2); Squamous Epithelial Cells Many /hpf (Few); White Blood Cells, Urine 50-100 /hpf (0-5)
== END | disposition home or self-care (01) ==
LOC: EDSTATUS 09:45 → LAB RH 13:58
PROVIDERS: Internal Medicine
DX: N39.0 Urinary tract infection, site not specified (principal)
CPT/HCPCS: 81001; 87086

== ENCOUNTER 2018-03-31 15:09 | Inpatient (IN) | payer MEDICARE ==
[~2018-03-31] VITALS: Ht 157.5 cm; Wt 89.8 kg
[~2018-03-31 15:09] MED LIST changes: -BUDE10.22 INH; -COMBIVENT RESPIM4 GM INH; -DILT180 PO; -ELIQUIS2.5 MG PO; -Flonase 0.05% N16 GM; -LEVFLO500 PO; -LIDO700A20 TOP; -PREVNAR 13 SYR0.5 ML IM; -QUET25 PO; -WARF1 PO
[2018-03-31] MEDS ORDERED: SACC250C PO (15:27)
[2018-03-31] MEDS ORDERED: WARF1 PO (15:27)
[2018-03-31] MEDS ORDERED: COMBIVENT RESPIM4 GM INH (15:28)
[2018-03-31 16:27] LABS: BASOPHILS ABSOLUTE AUTO 0.02 K/mm3 (0.00-0.23); BASOPHILS PERCENT AUTO 0 % (0-2); EOSINOPHILS ABSOLUTE AUTO 0.02 K/mm3 (0.00-0.68); EOSINOPHILS PERCENT AUTO 0 % (0-6); Hematocrit 35.1 % (33.0-51.0); Hemoglobin 10.7 g/dL (11.5-16.0); IMMATURE GRAN ABSOLUTE AUTO 0.07 K/mm3 (0.00-0.10); IMMATURE GRAN PERCENT AUTO 1 % (0-1); LYMPHOCYTES ABSOLUTE AUTO 1.24 K/mm3 (0.84-5.20); LYMPHOCYTES PERCENT AUTO 12 % (21-46); MONOCYTES ABSOLUTE AUTO 0.74 K/mm3 (0.16-1.47); MONOCYTES PERCENT AUTO 7 % (4-13); Mean Corpuscular HGB 30.9 pg (26.0-34.0); Mean Corpuscular HGB Conc 30.5 g/dL (31.5-36.5); Mean Corpuscular Volume 101 fL (80-100); Mean Platelet Volume 10.8 fL (9.1-12.4); NEUTROPHILS ABSOLUTE AUTO 8.72 K/mm3 (1.96-9.15); NEUTROPHILS PERCENT AUTO 81 % (41-73); Platelet Count 161 K/mm3 (150-400); RDW Coefficient Variation 19.5 % (11.7-14.2); Red Blood Cell Count 3.46 M/mm3 (3.80-5.20); White Blood Cell Count 10.81 K/mm3 (4.00-11.30)
[2018-03-31 16:46] LABS: Albumin, Blood 2.9 g/dL (3.4-5.0); Albumin/Globulin Ratio 0.6 (0.8-1.8); Bilirubin, Total 0.9 mg/dL (0.1-1.0); Bun/Creatinine Ratio 8.6 (12.0-20.0); Calcium, Blood 9.3 mg/dL (8.5-10.1); Creatinine, Blood 2.9 mg/dL (0.40-1.00); Globulin, Blood 4.9 g/dL (2.2-4.0); Potassium, Blood 3.5 mmol/L (3.5-5.5); Total Protein, Blood 7.8 g/dL (6.4-8.2)
[2018-03-31 16:47] LABS: International Normalized Ratio 1.32; Prothrombin Time Results 13.4 Sec (9.7-11.5)
[2018-03-31 19:17] LABS: Source, Urine Clean Catch
[2018-03-31 19:23] LABS: Appearance, Urine Hazy (Clear); Bilirubin, Urine Neg (Neg); Blood, Urine 3+ (Neg); Color, Urine Yellow (P-Yellow); Glucose Qualitative, Urine Neg (Neg); Ketones, Urine 1+ (Neg); Leukocyte Esterase, Urine 3+ (Neg); Nitrite, Urine Neg (Neg); Protein, Urine 3+ (Neg); Urobilinogen, Urine NORM (Normal)
[2018-03-31 20:19] LABS: Bacteria Many /hpf; Squamous Epithelial Cells Rare /hpf (Few); White Blood Cells, Urine TNTC /hpf (0-5)
[2018-04-01 05:41] LABS: Bun/Creatinine Ratio 9.3 (12.0-20.0); Calcium, Blood 8.6 mg/dL (8.5-10.1); Creatinine, Blood 3.23 mg/dL (0.40-1.00)
--- NOTE | 2018-04-01 06:24 | NUR ---
Rn summary: Patient was received via stretcher from the ED at 2210. Pt is confused, and talking nonsense at times. Pt with bed alarm on. Pt unable to answer questions, admit information taken from Dr notes and history. Pt is NPO due to possible stroke. Pt did choke on an oral sponge. Pt has been calling out on and off all shift. Pt is on tele and monitor shows atrial fib with rate at 110-120 on average. Pt was maintaining that rate so was given metoprolol 5mg IV and HR did decrease to 105-115. Pt has a dialysis fistula to Left forearm. Pt has voided only a small amout and bladder scan showed the bladder was empty post void.
--- NOTE | 2018-04-01 19:41 | NUR ---
SHIFT SUMMARY PATIENT A&O X4. COMPLAINED OF NECK, BACK, AND HSOULDER PAIN THIS SHIFT. RN MEDICATED X1. OXYGEN ON 2L NC. BLOOD PRESSURE AND PULSE WERE HIGH WITH A VEW SCORE OF 3 AND 4. PHYSICIAN WAS NOTIFIED AND RN MEDICATED PER Jun. PATIENT REMAINED ASYMPTOMATIC. SAFETY PRECAUTIONS IN PLACE. NO ACUTE CHANGES.
[2018-04-02 05:05] LABS: International Normalized Ratio 1.61; Prothrombin Time Results 16.1 Sec (9.7-11.5)
[2018-04-02 05:21] LABS: Albumin, Blood 2.4 g/dL (3.4-5.0); Anion Gap 9 mmol/L (6-16); Blood Urea Nitrogen 42 mg/dL (8-24); Bun/Creatinine Ratio 10.2 (12.0-20.0); CO2, Blood 30 mmol/L (21-32); Calcium, Blood 9.1 mg/dL (8.5-10.1); Chloride, Blood 99 mmol/L (98-108); Creatinine, Blood 4.11 mg/dL (0.40-1.00); Glomerular Filtration Rate 11 (60-); Glucose, Blood 93 mg/dL (70-99); Phosphorus, Blood 4.1 mg/dL (2.5-4.9); Potassium, Blood 3.7 mmol/L (3.5-5.5); Sodium, Blood 138 mmol/L (136-145)
--- NOTE | 2018-04-02 06:33 | NUR ---
Rn summary: Patient is alert and oriented. She can be irritable. Pt remains on telemetry and shows atrial fib with RVR rate about 115-120. Rate does go up to 140's when up to the bedside commode. Pt had one small stool. Pt is able to transfer self when holding on to commode handle to steady self. Pt needs assist getting her legs into bed. Pt has O2 on at 2 liters for comfort PRN. Pt has been medicated x2 with metoprolol 5mg IVP for afib rate > than 110. Pt was medicated with zofran this am prior to a snack. Pt blood sugars are WNL, 80 at bedtime. Pt has occational dry cough. Pt was medicated x1 with tylenol per her request for sleep. Pt cat naps on and off though shift. Call light in reach, remains in contact isolation.
--- NOTE | 2018-04-02 08:48 | NUR ---
MAINTENANCE WORKER [employer] CALLED FOR PATIENT HEART RATE OF 150, MEDICATED PER ORDERS
[2018-04-02] MEDS ORDERED: DILT180 PO (14:20)
[2018-04-02] MEDS ORDERED: LEVFLO500 PO (15:24)
[2018-04-02] MEDS ORDERED: ELIQUIS2.5 MG PO (15:24)
[2018-04-02] MEDS ORDERED: QUET25 PO (15:25)
--- NOTE | 2018-04-02 16:37 | NUR ---
SHIFT SUMMARY PATIENT A&O X4, IS HAVING SOME VISUAL HALLUCINATIONS THIS SHIFT. STATES THAT THERE IS A HUGE SPIDER ON THE CEILING. RN MEDICATED X1 FOR PAIN AND X1 FOR NAUSEA THIS SHIFT. VEW SCORE OF 4 TODAY REGARDING ELEVATED BP AND PULSE, DR. ROSS AWARE. RN MEDICATED PER ORDERS, PATIENT ASYMPTOMATIC. WILL CONTINUE TO MONITOR. 1 PA TO BSC. NO ACUTE CHANGES. RN WILL CONTINUE TO MONITOR.
--- NOTE | 2018-04-02 21:36 | NUR ---
SHIFT SUMMARY RECEIVED SHIFT REPORT THAT PT TO BE D/C'D WHEN DIALYSIS COMPLETE; [facility] TO BE NOTIFIED AGAIN THEY CAME EALIER BUT PT STILL RECEIVING DIALYSIS. CHRG RN NOTIFIED TO CALL [facility]. PT REQUESTED CLEAN GOWN FOR TX. ASSISTED PT IN REPLACING GOWN SHE DID NOT WANT TO WEAR HER OWN CLOTHES BACK TO [facility]. TELE MX NOTIFIED PT TO BE D/C'D AND TELE SENT BACK TO [facility]. 1956 [facility] HERE TO TAKE PT VIA W/C. PT TX SELF TO W/C BY DEMAND WITH SBA.
== END 2018-04-02 20:00 | DRG 689 ==
LOC: ER 15:09 → MEDS 19:58
PROVIDERS: Internal Medicine; Internal Medicine Endocrinology, Diabetes & Metabolism; ADMIT Hospitalist
PROC: 5A1D70Z Performance of Urinary Filtration, Intermittent, Less than 6 Hours Per Day (ICD-10-PCS; principal; 2018-04-01)
DX: N39.0 Urinary tract infection, site not specified (principal); G93.41 Metabolic encephalopathy; N18.6 End stage renal disease; I13.2 Hypertensive heart and chronic kidney disease with heart failure and with stage 5 chronic kidney disease, or end stage renal disease; F03.91 Unspecified dementia, unspecified severity, with behavioral disturbance; F05 Delirium due to known physiological condition; D63.1 Anemia in chronic kidney disease; E11.22 Type 2 diabetes mellitus with diabetic chronic kidney disease; I50.9 Heart failure, unspecified; Z99.2 Dependence on renal dialysis; N20.0 Calculus of kidney; I48.2 Chronic atrial fibrillation; E78.5 Hyperlipidemia, unspecified; J44.9 Chronic obstructive pulmonary disease, unspecified; F32.9 Major depressive disorder, single episode, unspecified; I25.10 Atherosclerotic heart disease of native coronary artery without angina pectoris; I25.2 Old myocardial infarction; R79.1 Abnormal coagulation profile; B96.1 Klebsiella pneumoniae [K. pneumoniae] as the cause of diseases classified elsewhere; Z86.73 Personal history of transient ischemic attack (TIA), and cerebral infarction without residual deficits; Z87.891 Personal history of nicotine dependence
CPT/HCPCS: 36415; 70450; 71046; 80048; 80053; 80069; 81001; 82947; 83605; 85025; 85610; 85651; 86140; 87040; 87077; 87086; 87186; 92526; 93005; 93010; 96361; 96365; 96367; 99285-25; G8996; G8997; G8998; J0456; J0696; J0881; J1650; J2405; J7030; J7050; P9612

== ENCOUNTER 2018-05-08 15:35 | Emergency (ER) | payer MEDICARE ==
[~2018-05-08] VITALS: Ht 160 cm; Wt 118.4 kg
[~2018-05-08 15:35] MED LIST changes: +COMBIVENT RESPIM4 GM INH; +DILT180 PO; +ELIQUIS2.5 MG PO; +LEVFLO500 PO; +QUET25 PO; +WARF1 PO
[2018-05-08] MEDS ORDERED: Flonase 0.05% N16 GM (15:56)
[2018-05-08] MEDS ORDERED: LIDO700A20 TOP (15:57)
[2018-05-08] MEDS ORDERED: BUDE10.22 INH (16:01)
[2018-05-08] MEDS ORDERED: HYDR1TAB94 PO (17:01)
== END 2018-05-08 18:00 | disposition home or self-care (01) ==
LOC: ER 15:35
DX: M25.562 Pain in left knee (principal); G89.29 Other chronic pain; E66.01 Morbid (severe) obesity due to excess calories; I13.2 Hypertensive heart and chronic kidney disease with heart failure and with stage 5 chronic kidney disease, or end stage renal disease; E11.22 Type 2 diabetes mellitus with diabetic chronic kidney disease; N18.6 End stage renal disease; I50.9 Heart failure, unspecified; Z88.8 Allergy status to other drugs, medicaments and biological substances; Z79.899 Other long term (current) drug therapy; J44.9 Chronic obstructive pulmonary disease, unspecified; I48.91 Unspecified atrial fibrillation; I25.2 Old myocardial infarction; Z87.891 Personal history of nicotine dependence
CPT/HCPCS: 73562-LT; 99283-25

== ENCOUNTER 2018-05-12 07:15 | Inpatient (IN) | payer MEDICARE ==
[~2018-05-12] VITALS: Ht 157.5 cm; Wt 55.4 kg
[~2018-05-12 07:15] MED LIST changes: +BUDE10.22 INH; +Flonase 0.05% N16 GM; +LIDO700A20 TOP
[2018-05-12 07:35] LABS: Calcium, Ionized (POC) 1.18 mmol/L (1.10-1.46); Chloride (POC) 94 mmol/L (98-108); Creatinine (POC) 6.3 mg/dL (0.6-1.0); Glucose (ISTAT POC) 101 mg/dL (70-99); Hemoglobin (POC) 11.6 g/dL (12.0-16.0); Potassium (POC) 5.1 mmol/L (3.5-5.5); Sodium (POC) 134 mmol/L (135-148); Total CO2 (POC) 24 mmol/L (21-32)
[2018-05-12 08:22] LABS: BASOPHILS ABSOLUTE AUTO 0.01 K/mm3 (0.00-0.23); BASOPHILS PERCENT AUTO 0 % (0-2); EOSINOPHILS PERCENT AUTO 0 % (0-6); Hematocrit 32.5 % (33.0-51.0); Hemoglobin 10.4 g/dL (11.5-16.0); IMMATURE GRAN ABSOLUTE AUTO 0.08 K/mm3 (0.00-0.10); IMMATURE GRAN PERCENT AUTO 1 % (0-1); LYMPHOCYTES ABSOLUTE AUTO 1.05 K/mm3 (0.84-5.20); LYMPHOCYTES PERCENT AUTO 11 % (21-46); MONOCYTES ABSOLUTE AUTO 0.68 K/mm3 (0.16-1.47); MONOCYTES PERCENT AUTO 7 % (4-13); Mean Corpuscular HGB 31.8 pg (26.0-34.0); Mean Corpuscular Volume 99 fL (80-100); Mean Platelet Volume 10.6 fL (9.1-12.4); NEUTROPHILS ABSOLUTE AUTO 8.09 K/mm3 (1.96-9.15); NEUTROPHILS PERCENT AUTO 82 % (41-73); NRBC ABSOLUTE 0.02 K/mm3 (0.00-0.02); NRBC Auto 0.2 /100 WBC (0.0-0.2); Platelet Count 156 K/mm3 (150-400); RDW Coefficient Variation 19.6 % (11.7-14.2); Red Blood Cell Count 3.27 M/mm3 (3.80-5.20); White Blood Cell Count 9.91 K/mm3 (4.00-11.30)
[2018-05-12 08:39] LABS: Albumin, Blood 2.3 g/dL (3.4-5.0); Albumin/Globulin Ratio 0.4 (0.8-1.8); Bilirubin, Total 1.6 mg/dL (0.1-1.0); Bun/Creatinine Ratio 15.6 (12.0-20.0); Calcium, Blood 10.4 mg/dL (8.5-10.1); Creatinine, Blood 5.83 mg/dL (0.40-1.00); Globulin, Blood 5.3 g/dL (2.2-4.0); Potassium, Blood 5.1 mmol/L (3.5-5.5); Total Protein, Blood 7.6 g/dL (6.4-8.2); Troponin I 0.026 ng/mL (0.000-0.040)
[2018-05-12 08:42] LABS: Thyroid Stimulating Hormone 5.84 uIU/mL (0.360-4.800)
[2018-05-12 08:58] LABS: Base Excess Venous -0.4 mmol/L; Bicarbonate Venous 24.2 mmol/L (24.0-30.0); PCO2 Venous 38.6 mmHg (38-42); PO2 Venous 139 mmHg (38-42); pH Blood Venous 7.41 (7.34-7.37)
[2018-05-12] MEDS ORDERED: DILT180 PO (12:15)
[2018-05-12] MEDS ORDERED: HYDR1TAB94 PO (12:30)
[2018-05-12] MEDS ORDERED: LABE200 PO (12:37)
[2018-05-12] MEDS ORDERED: PREVNAR 13 SYR0.5 ML IM (12:38)
[2018-05-12 14:35] LABS: Source, Urine Catheter
[2018-05-12 14:46] LABS: Appearance, Urine Cloudy (Clear); Bilirubin, Urine Neg (Neg); Blood, Urine 5+ (Neg); Color, Urine Yellow (P-Yellow); Glucose Qualitative, Urine Neg (Neg); Ketones, Urine 1+ (Neg); Leukocyte Esterase, Urine 3+ (Neg); Nitrite, Urine Neg (Neg); Protein, Urine 3+ (Neg); Specific Gravity, Urine 1.015 (1.003-1.022); Urobilinogen, Urine 1+ (Normal)
[2018-05-12 15:07] LABS: Bacteria Many /hpf; Red Blood Cells, Urine 25-50 /hpf (0-2); Squamous Epithelial Cells Few /hpf (Few)
--- NOTE | 2018-05-12 15:09 | NUR ---
NURSING PCU DAYSHIFT: Assumed care of pt at approx 1400. Arrived from ER via bed accompanied by RNyoana to unit bed using slider sheet. Pt is cooperative w/only some aspects of care, confused and yelling out. Skin is fragile and dusky w/scattered bruising on UE's, abrasion/skin tears also scattered on ext's, mepilex from facility in place. Tele in place, afib w/HR 130's, BP stable, trace general edema. L/S w/wheezes t/o, coarse upper lobes and dim bases, respirations shallow, moist cough, O2 sat mid 90's on RA. Abd obese, SNT, BT+, incontinent at times, attends in place, urine is tea colored and cloudy. PIV x1, D5 1/2 NS infusing at 50cc/hr w/abx as scheduled. Fistula present in LFA w/+ bruit/thrill. No current needs identified. Attends changed and destinee care completed. Turntable Man consult called and notified of pt's arrival to unit. Bed alarm set for safety purposes. Call light in reach though frequent rounding will be required d/t pt's confusion. Cont to monitor for any changes.
--- NOTE | 2018-05-12 17:04 | NUR ---
NURSING PCU DAYSHIFT SUMMARY: No acute changes since arrival to the unit. Pt remains confused though has been able to express needs by yelling out. Cardiac and respiratory status appear stable at this time. Call light in reach and bed alarm is set, cont to monitor until rpt is given to NOC RN.
[2018-05-13 04:21] LABS: BASOPHILS ABSOLUTE AUTO 0.01 K/mm3 (0.00-0.23); BASOPHILS PERCENT AUTO 0 % (0-2); EOSINOPHILS PERCENT AUTO 0 % (0-6); Hematocrit 33.4 % (33.0-51.0); Hemoglobin 10.8 g/dL (11.5-16.0); IMMATURE GRAN ABSOLUTE AUTO 0.09 K/mm3 (0.00-0.10); IMMATURE GRAN PERCENT AUTO 1 % (0-1); LYMPHOCYTES ABSOLUTE AUTO 1.12 K/mm3 (0.84-5.20); LYMPHOCYTES PERCENT AUTO 14 % (21-46); MONOCYTES ABSOLUTE AUTO 0.92 K/mm3 (0.16-1.47); MONOCYTES PERCENT AUTO 11 % (4-13); Mean Corpuscular HGB 31.6 pg (26.0-34.0); Mean Corpuscular HGB Conc 32.3 g/dL (31.5-36.5); Mean Corpuscular Volume 98 fL (80-100); Mean Platelet Volume 11.4 fL (9.1-12.4); NEUTROPHILS ABSOLUTE AUTO 6.01 K/mm3 (1.96-9.15); NEUTROPHILS PERCENT AUTO 74 % (41-73); NRBC ABSOLUTE 0.04 K/mm3 (0.00-0.02); NRBC Auto 0.5 /100 WBC (0.0-0.2); Platelet Count 120 K/mm3 (150-400); RDW Coefficient Variation 19.6 % (11.7-14.2); RDW Standard Deviation 69.4 fL (35.1-46.3); Red Blood Cell Count 3.42 M/mm3 (3.80-5.20); White Blood Cell Count 8.15 K/mm3 (4.00-11.30)
[2018-05-13 04:46] LABS: Alanine Aminotransfer (ALT/SGP 20 U/L (12-78); Albumin, Blood 2.1 g/dL (3.4-5.0); Albumin/Globulin Ratio 0.4 (0.8-1.8); Alk Phos 85 U/L (50-136); Anion Gap 17 mmol/L (6-16); Aspartate Aminotrans (AST/SGOT 52 U/L (12-37); Blood Urea Nitrogen 98 mg/dL (8-24); Bun/Creatinine Ratio 16.6 (12.0-20.0); CO2, Blood 19 mmol/L (21-32); Calcium, Blood 10.1 mg/dL (8.5-10.1); Chloride, Blood 97 mmol/L (98-108); Globulin, Blood 5.6 g/dL (2.2-4.0); Glomerular Filtration Rate 7 (60-); Glucose, Blood 105 mg/dL (70-99); Potassium, Blood 6.2 mmol/L (3.5-5.5); Sodium, Blood 133 mmol/L (136-145); Total Protein, Blood 7.7 g/dL (6.4-8.2); Vancomycin, Random 12.7 ug/mL
--- NOTE | 2018-05-13 06:23 | NUR ---
SHIFT SUMMARY PT HAS BEEN AGRAVATED AND IRRITABLE T/O MAJORITY OF THE SHIFT. SHE HAS REFUSED ALL ORAL MEDICATIONS, REFUSED OXYGEN T/O THE SHIFT AND REFUSED TURNS AND CHANGES. PT WAS ABLE TO BE TURNED Q2 BUT IT WAS A MAX ASSIST WITH AT LEAST TWO PEOPLE. LAB DRAWS WERE POSSIBLE BUT IT WAS ALSO A FULL MAX ASSIST FOR THAT WELL. PT DID REQUIRE SOME ZYPREXA AT ONE POINT IM DUE TO COMBATIVE BEHAVIOR, ANXIETY AND RESTLESSNESS. PT HAS NOT BEEN TOLERANT OF ROUNDING, YELLING AT STAFF TO GET OUT AND USING INAPPROPRIATE LANGUAGE WITH THEM. PT HR HAS BEEN ELEVATED T/O SHIFT. DOCTOR WAS NOTIFIED AND ORDERS WERE RECIEVED. PT BED IN LOWEST POSITION, CALL LIGHT IS IN REACH AND 2X SIDE RAILS WITH BED ALARM ARE IN PLACE. PT WILL CONTINUE TO BE MONITORED UNTIL HANDOFF TO DAYSHIFT RN.
--- NOTE | 2018-05-13 18:49 | NUR ---
NURSING PCU DAYSHIFT SUMMARY: HD completed this a.m., pt tolerated fairly well. L/S continue to sound wet, audible course sounds w/respirations. O2 sat low 90's on RA. HR increased to 160's, PRN metoprolol administered, no improvement noted. PMD notified of increased HR, new d/o received, diltiazem gtt initiated. PG placed to [facility], pt tolerated fairly well. Remains confused and yells out, has not been cooperative w/much care. No s/s of acute distress at this time, call light in reach though frequent rounding required. Rpt provided to KEITH RN.
[2018-05-14 04:29] LABS: Vancomycin, Random 22.7 ug/mL
--- NOTE | 2018-05-14 06:43 | NUR ---
SHIFT SUMMARY PT MAINTAINED HER LEVEL OF CONSCIOUSNESS. SHE IS CONFUSED AND DISORIENTED AT TIMES. SHE DID KNOW THAT SHE WAS AT THE HOSPITAL, BUT DID NOT KNOW WHERE OR WHAT TOWN SHE WAS IN. PT SLEPT OFF AND ON, CONTINUED CALLING OUT, AND WAS AGITATED WITH STAFF FOR TURNS, REPOSITIONS AND CHANGES. PT REFUSED ORAL MEDS, AND WAS NOT CLEAR ENOUGH TO SAFELY TAKE ORAL MEDICATIONS. SHE HAD NO ACUTE CHANGES TO VITALS DURING THE NIGHT AND DID NOT USE HER CALL LIGHT OR COMMUNICATE EFFECTIVELY. PT WAS ROUTINLY ROUNDED ON AND WAS UNABLE TO MAKE NEEDS KNOWN. HER BED HAS BEEN LEFT IN THE LOWEST POSITION, SHE HAS 2X SIDE RAILS IN PLACE AND BED ALARM IS ACTIVE. PT WILL CONTINUE TO BE MONITORED UNTIL HANDOFF TO DAYSHIFT RN.
--- NOTE | 2018-05-14 09:35 | NUR ---
CARDIZEM GTT PT HR 90S ON MONITOR ACCORDING TO ZENY, MOLDER FLOOR. CARDIZEM GTT TITRATED DOWN TO 10MG/HR. WILL CONT TO MONITOR PT RHYTHM AND HR.
--- NOTE | 2018-05-14 10:06 | NUR ---
ASSUMED CARE NOTE PT RESTING IN BED, RESPONDS TO VERBAL STIMULI. PT CONFUSED TO ALL BUT SELF. PT OBESE, DECONDITIONED. PT ONLY MOVED ARM WITH ATTENDS CHANGE AND REPOSITION IN AN EFFORT TO PUSH AGAINST SIDE RAIL AND FIGHT AGAINST CARE. TONGUE, GUMS, AND TEETH CAKED WITH DRIED DARK SUBSTANCE, MUCOSA DRY. PT MISSING TEETH AND TEETH ON UPPER GUMLINE WIGGLE WITH ORAL CARE. PT REMAINS NPO DUE TO ASPIRATION RISK. PT WITH POOR COUGH EFFORT. CRACKLES AUSCULTATED IN ALL LUNG ALLEN. SPO2 READING 88% ON RA, 3LPM VIA NC APPLIED TO PT WITH SPO2 READING 92%. RHYTHM SHOWS AFIB, COMPUTER OPERATIONS TECHNICIAN HAILEY REPORTS HR IN 80-100S. CARDIZEM GTT REMAINS ON AT 10MG/HR. SEE FLOWSHEET FOR VS. BED IN LOWEST POSITION, SIDE RAILS RAISED, CALL LIGHT IN REACH. WILL CONT TO MONITOR PT.
--- NOTE | 2018-05-14 13:00 | NUR ---
REPORT RECIEVED FROM RALF HART, ASSUMED CARE OF PATIENT. WITH THE ASSISTANCE OF THE CERTIFIED ORTHOTIC FITTER BED BATH AND LINEN CHANGE. ORAL CARE COMPLETE, PT HAS SOME LOOSE FRONT TEETH NOTED. PT HAS DRIED BLOOD ON THE INSIDE OF HER MOUTH, I AM UNALBE TO FIND THE SOURCE. PT REPOSITIONED TO HER RIGHT SIDE. CALL LIGHT IN REACH, BED ALARM ON FOR SAFETY.
--- NOTE | 2018-05-14 13:45 | NUR ---
PT GIVEN BED BATH WITH ASSISTANCE OF THE DRAPERY HAND. LINEN CHANGED. PT TOLERATED WELL. ORAL CARE COMPLETE ALSO. PT SEEMS TO HAVE A SOURCE OF BLEEDING IN HER MOUTH, UNALBE TO TELL FROM WHERE. PTS TWO FRONT TEETH ARE LOOSE. PT REPOSITIONED FOR COMFORT, BED ALARM ON FOR SAFETY, CALL LIGHT IN REACH.
--- NOTE | 2018-05-14 16:15 | NUR ---
ASSESSMENT: PT RESTING IN BED WITH EYES OPEN. PT STATES SHE IS COMFORTABLE AT THIS TIME. PILLOWS FROM EARLIER REPOSITION WERE PULLED OUT. VSS. HEART RATE STARTING TO SLOWLY TREND BACK UP, IT IS NOW IN THE 120S PER MANAGER IMAGE. CARDIZEM TITRATED BACK UP TO 15 MG/HR. LS COARSE IN THE UPPER LOBES, PT ENCOURAGED TO COUGH, ABLE TO CLEAR AIRWAY WITH STRONG NPC. ATTEMPTED TO SUCTION WITH YONKUR, NO MUCUS ABLE TO BE SUCTIONED. BED ALARM ON FOR SAFETY, CALL LIGHT IN REACH, WILL CONITNUE TO MONITOR.
--- NOTE | 2018-05-14 17:07 | NUR ---
Initial palliative care consult: Met with Orville this afternoon in her room. She is awake and alert to name only. She does not know where she is or why she is here. Staff report that she has been somewhat compliant with care since she was admitted. Orville currently denies pain, SOB, N/V or any discomfort. Orville is a 73 year old with a history of ESRD, on HD since 02/08/15, dementia, COPD, a-fib, HTN, depression, recurrent UTIs and kidney stones. She is currently residing at [facility] since last February. She has been admitted with encephalopathy, UTI and sepsis. She is currently a limited code, a POLST form (2018) with DNR, limited interventions and no TF is on file in the EMR. She received a HD treatment yesterday and another HD treatment is planned for tomorrow. She appears to be alert at times, however during our converstion she was having visual hallucinations and seeing water dripping out of the sprinkler system in the ceiling. She also thought there was someone else in the room during my visit. She is her own decision maker. Staff at [facility] and LINN Rao care transition manager all state that she has an estranged daughter and no other family. A friend is listed as the wash crew person in the EMR. Staff at [facility] report that they have seen a decline in her overall health over the past few months that she has been there. Pratima her nurse at reports that Orville frequently refuses going to HD or to doctors appointments. Pratmia also stated that Orville is non-compliant with her diet. She stated that Orville likes to eat cheerios with garlic salt on them at meals. Orville has called 911 from [facility] claiming that she was being held hostage according to Pratima. Pratima states that when Orville is compliant with HD treatments that she is usually much more oriented. Pratima states that she felt Orville "needs hospice." Spoke with Parminder at [facility] who reports that Orville has received HD from their facility since 02/08/15. Parminder reports that she has seen a trend of decline in Orville's health. Spoke with Maira [facility] coordinator to discuss plan of care going forward. At this time that plan is to continue with HD treatments and to treat the infection and hope that Orville's mentation clears enough so that she can discuss her wishes for future care. Maira stated that she believes Orville resides in the emt intermediate care wing at . Maira also stated that Orville has a child support case officer with the critical access hospital. If Orville's mentation doesn't clear in the next few days, Maira plans to attempt to locate Orville's daughter's phone number. Guardianship may be necessary if Orville isn't able to make her own decisions. Current treatment plan is consistent with pt's wishes that are on her POLST from 2018. If pt's condition doesn't improve or if it worsens and attempts to contact her daughter are unsuccessful staff may need to consider an ethics consult in assisting with future care planning. PC to continue to follow for symptom management and care planning.
--- NOTE | 2018-05-14 18:15 | NUR ---
NEW BAG OF KRISSY THOMPSON. PT HAS KICKED ALL HER COVERS OFF AND IS YELLING AT RN TO GET AWAY FROM HER AND YELLING FOR SOMEONE TO COME AND HELP HER. ATTEMPTS TO CALM PT NOT SUCCESSFUL. PT REFUSING LOVENOX INJECTION. PT IS REACHING TO HIT AND KICK STAFF WHEN THEY'RE CLOSE TO THE BED. ALL ITEMS THAT MY CAUSE INJURY PLACED OUT OF PATIENT REACH. BED RAILS UP FOR SAFETY AND STIMULI REDUCED TO CALM PATIENT, WILL CONTINUE TO MONITOR.
--- NOTE | 2018-05-14 19:00 | NUR ---
REPORT GIVEN TO GRACIE PARKER RN, PT IS NOW RESTING COMFORTABLY IN BED AWAKE, NOT YELLING OUT.
--- NOTE | 2018-05-14 19:53 | NUR ---
PT HAS DONE OK TODAY. VSS. CARDIZEM GTT RUNNING AT 15 MG/HR, KEEPING HEART RATE IN THE 100-120S. PT HAS BEEN CONFUSED THROUGH OUT THE SHIFT AND HAS BEEN HOLLERING OUT INTERMITTENTLY. THIS EVENING PT WAS A LITTLE COMBATIVE WHICH RESOLVED WITH STIMULI REDUCTION. NO ACUTE CHANGES THIS SHIFT, REPORT GIVEN TO DELFINO PARKER RN.
--- NOTE | 2018-05-15 00:27 | NUR ---
PT REFUSING MIDNIGHT VITALS.
[2018-05-15 04:14] LABS: Albumin/Globulin Ratio 0.4 (0.8-1.8); Bilirubin, Total 1.4 mg/dL (0.1-1.0); Bun/Creatinine Ratio 15.2 (12.0-20.0); Calcium, Blood 10.3 mg/dL (8.5-10.1); Creatinine, Blood 5.47 mg/dL (0.40-1.00); Potassium, Blood 4.8 mmol/L (3.5-5.5)
--- NOTE | 2018-05-15 05:43 | NUR ---
SHIFT SUMMARY PT SLEEPING IN ROOM COMFORTABLY. PT HAD NO ACUTE CHANGES IN STATUS OVERNIGHT. PT DID REFUSE MIDNIGHT VITAL SIGNS, AND ORAL CARE. PT BECAME AGGITATED AND WITH CONTINUED EFFORTS FOR ORAL CARE. PT ALLOWED SOME REPOSITIONINGS BUT REFUSED MANY. SKIN IS PWD. CARDIZEM INFUSING IN POWERGLIDE IV @ 15. RESP EVEN UNLABORED ON 2L O2 VIA NC. PT PULLED O2 OFF MULTIPLE TIMES T/O NIGHT. CALL LIGHT IS IN REACH. BED ALARM ON FOR SAFETY.
--- NOTE | 2018-05-15 14:22 | NUR ---
ECHOCARDIOGRAM COMPLETED
--- NOTE | 2018-05-15 17:50 | NUR ---
END OF SHIFT; PT RECEIVED DIALYSIS TODAY. RETURNED TO ROOM APPROX 1300. HAS BEEN CONFUSED ALL DAY. YELLLING OUT AND MUMBLING TO HERSELF. SHE THINKS SHE IS AT HOME AND WANTS TO GET UP OUT OF BED. PT IS UNABLE TO GET UP SHE HAS HAD A RIGHT SIDE CVA. HER LUNGS ARE DIM THROUGHOUT AND COARSE IN THE BASES AT THIS TIME. HER VITAL SIGNS ARE STABLE CHARTED. SHE REMAINS IN AFIB RHYTHM. CARDIZEM WAS DC'D IN DIALYSIS AND HAS NOT BEEN RESTARTED. HR IS IN THE 80'S AT THIS TIME. WILL CONTINUE TO MONITOR THIS PATIENT UNTIL REPORT AND HAND OFF TO NOC SHIFT RN.
[2018-05-16 03:48] LABS: Bun/Creatinine Ratio 14.9 (12.0-20.0); Calcium, Blood 9.5 mg/dL (8.5-10.1); Creatinine, Blood 3.63 mg/dL (0.40-1.00)
--- NOTE | 2018-05-16 06:16 | NUR ---
SHIFT SUMMARY PT RESTING COMFORTABLY IN ROOM. NO ACUTE CHANGES IN STATUS SINCE ASSESSMENT. PT WAS MORE ALERT OVERNIGHT, ABLE TO CONVERSE WITH THIS RN MORE THAN PREVIOUS NIGHT. PT DID AGREE TO REPOSITIONING AND TURNS, TOLERATED FAIR. CARDIZEM DRIP WAS DC'D DURING DAY. PT HR SLOWLY STARTING TO ELEVATE TO 100-110'S. RESP EVEN UNLABORED ON 3L NC, SLIGHTLY TACHYPNIC. CALL LIGHT IN REACH, BED ALARM ON FOR SAFETY.
--- NOTE | 2018-05-16 17:16 | NUR ---
END OF SHIFT SUMMARY; PT REMAINS CONFUSED DURING DAY SHIFT. YELLING OUT AND STRIKING OUT AT STAFF. PT DID NOT RECEIVE DIALYSIS TODAY. SHE REMAINS IN BED. CARDIZEM DRIP IS RESTARTED PER VERBAL ORDER FOR AFIB IN 120'S AND ABOVE. WILL CONTINUE TO MONITOR THIS PATIENT CLOSELY UNTIL REPORT AND HAND OFF TO NOC SHIFT RN.
--- NOTE | 2018-05-16 19:10 | NUR ---
OPENING NOTE RECEIVED BEDSIDE REPORT FROM JOSEPH HART AND ASSUMED PT CARE. PT IS RESTING IN BED, HEARD FROM THE HALLWAY CALLING OUT "MEDICAL HELP!". UPON ENTERING THE ROOM AND ASKING WHAT THE PT NEEDS, PT STATES "I WANT THE LIGHTS ON!". PT DENIES ANY OTHER NEEDS AT THIS TIME. MONITOR SHOWS AFIB IN 110'S, CARDIZEM GTT RUNNING TO R UPPER ARM POWERGLIDE AT 10 MG/HR. WILL PERFORM ASSESSMENT AND CONTINUE PLAN OF CARE. WILL MONITOR HEART RATE CLOSELY AND TITRATE CARDIZEM PER GUIDELINE. PT EXHIBITS SOME CONFUSION AND AGITATION AT TIMES, BED ALARM ON FOR SAFETY AND PT REORIENTED UPON ENTERING THE ROOM EACH TIME. CALL LIGHT AND BELONGINGS IN REACH.
--- NOTE | 2018-05-17 00:28 | NUR ---
ASSUMED CARE REPORT FROM ADITYA HART. PT SLEEPING COMFORTABLY IN ROOM AT THIS TIME. NO ACUTE CHANGES FROM START OF SHIFT.
[2018-05-17 04:22] LABS: BASOPHILS ABSOLUTE AUTO 0.01 K/mm3 (0.00-0.23); BASOPHILS PERCENT AUTO 0 % (0-2); EOSINOPHILS ABSOLUTE AUTO 0.12 K/mm3 (0.00-0.68); EOSINOPHILS PERCENT AUTO 2 % (0-6); Hematocrit 29.7 % (33.0-51.0); Hemoglobin 9.4 g/dL (11.5-16.0); IMMATURE GRAN ABSOLUTE AUTO 0.18 K/mm3 (0.00-0.10); IMMATURE GRAN PERCENT AUTO 2 % (0-1); LYMPHOCYTES ABSOLUTE AUTO 1.93 K/mm3 (0.84-5.20); LYMPHOCYTES PERCENT AUTO 25 % (21-46); MONOCYTES ABSOLUTE AUTO 0.91 K/mm3 (0.16-1.47); MONOCYTES PERCENT AUTO 12 % (4-13); Mean Corpuscular HGB 31.9 pg (26.0-34.0); Mean Corpuscular HGB Conc 31.6 g/dL (31.5-36.5); Mean Platelet Volume 10.8 fL (9.1-12.4); NEUTROPHILS ABSOLUTE AUTO 4.67 K/mm3 (1.96-9.15); NEUTROPHILS PERCENT AUTO 60 % (41-73); NRBC ABSOLUTE 0.08 K/mm3 (0.00-0.02); Platelet Count 152 K/mm3 (150-400); RDW Coefficient Variation 19.9 % (11.7-14.2); Red Blood Cell Count 2.95 M/mm3 (3.80-5.20); White Blood Cell Count 7.82 K/mm3 (4.00-11.30)
[2018-05-17 04:23] LABS: Mean Corpuscular Volume 101 fL (80-100)
[2018-05-17 04:37] LABS: Bun/Creatinine Ratio 15.2 (12.0-20.0); Calcium, Blood 9.1 mg/dL (8.5-10.1); Creatinine, Blood 4.28 mg/dL (0.40-1.00); Potassium, Blood 4.1 mmol/L (3.5-5.5)
--- NOTE | 2018-05-17 06:29 | NUR ---
SHIFT SUMMARY PT SLEEPING IN ROOM COMFORTABLY. NO ACUTE CHANGES SINCE HANDOFF FROM PREVIOUS RN. PT SLEPT WELL, RESP EVEN UNLABORED ON 3L O2 VIA NC W/ SATS >92%. PT TOLERATED Q2 TURNS FAIR TO PREVENT SKIN BREAKDOWN ON HER BACKSIDE. CARDIZEM GGT INFUSING VIA POWERGLIDE FOR RATE CONTROL. CALL LIGHT IS IN REACH. BED ALARM ON FOR SAFETY.
[2018-05-17 16:10] LABS: Vancomycin, Random 10.2 ug/mL
--- NOTE | 2018-05-17 18:44 | NUR ---
SHIFT SUMMARY PT RESTING IN BED THROUGHOUT THE DAY. CONFUSED AT TIMES, YELLING OUT AT TIMES. ALERT AND ORIENTED TO SELF ONLY, FOLLOWING COMMANDS APPROPRIATELY. VSS. PT TOLERATED DIALYSIS WELL. INCONTINENT OF LOOSE STOOL MULTIPLE TIMES TODAY. LUNG SOUNDS CLEAR, DIMINISHED THROUGHOUT. AFIB ON TELEMETRY RATE 90-110s, CARDIZEM GTT CONTINUED AT 10 ML/HR THROUGHOUT THE DAY. C/O PAIN TO ABDOMEN AND LEFT LEG THROUGHOUT THE DAY, MEDICATED WITH PRN PAIN MEDS. WILL CONTINUE TO MONITOR.
--- NOTE | 2018-05-18 04:52 | NUR ---
SHIFT SUMMARY VS STABLE. PT HAD MULTIPLE LIQUID BROWN STOOLS THROUGHOUT SHIFT. PT COMPLAINED OF PAIN IN HER LEFT LEG AND ABD THAT WAS RELIEVED WITH TYLENOL. PT REPOSITIONED Q2H. NO OTHER CHANGES SINCE INITIAL ASSESSMENT. WILL CONTINUE TO MONITOR AND REPORT TO ONCOMING RN. CALL LIGHT IN REACH.
--- NOTE | 2018-05-18 13:51 | NUR ---
UPDATE Spoke to Dr Ortega regarding cardiology consult. Provider will see patient today.
[2018-05-18 15:15] LABS: Vancomycin, Random 20.3 ug/mL
--- NOTE | 2018-05-18 18:13 | NUR ---
SHIFT SUMMARY Assumed care of pt at 0700. Report received from Ursula HART. Pt on 2 LPM NC at time of report, however, pt often removes NC from nares. Pt bedrest. Voids stool and urine either incontinent or into bedpan. Pt does not utilize call light. She yells out to get attention of staff. Cardizem drip at 10 mg/hr. Currently atrial fibrillation per telemetry with rate of 100-110. Bed in lowest position. Call light in reach. Will continue to closely monitor until care handoff and bedside report with oncoming RN.
--- NOTE | 2018-05-18 19:50 | NUR ---
ASSUMED CARE PT RESTING IN ROOM COMFORTABLY. PER DAY SHIFT NO ACUTE CHANGES. PT STARTED ON PO CARDIZEM TODAY, IV CARDIZEM TO BE TITRATED DOWN PO MEDS START TAKING EFFECT. SKIN PWD. DENIES PAIN AT THIS TIME. RESP EVEN UNLABORED ON 2L NC. CALL LIGHT IN REACH
--- NOTE | 2018-05-19 05:44 | NUR ---
SHIFT SUMMARY PT RESTING IN ROOM COMFORTABLY. NO ACUTE CHANGES IN STATUS OVERNIGHT. PT DID NOT SLEEP T/O SHIFT. WAS RESTLESS AND CALLED OUT SEVERAL TIMES. MEDICATED ONCE FOR PAIN, AND AGGITATION. PT WAS TURNED Q2. ATTENDS C/D/I. RESP EVEN UNLABORED ON 2L NC. CALL LIGHT IN REACH. BED ALARM ON FOR SAFETY.
--- NOTE | 2018-05-19 09:54 | NUR ---
BEGINNING OF SHIFT Assumed care at 0700. Report recieved from Unique HART. Pt irritable and anxious this morning. Dr Ortega in to see pt this AM. Provider aware that pt remains on 15 mg/hr of diltiazem. Plans to administer labetalol and diltizem PO as ordered and continue to reassess heart rate. Per pharmacist, henri Morales to open diltiazem capsule and mix with applesauce as long as pt does not chew the beads of medication. AM meds given with applesauce. Pt in dialysis at this time. HR remains between 95 and 105 per telemetry.
[2018-05-19 10:08] LABS: Hematocrit 30.1 % (33.0-51.0); Hemoglobin 9.5 g/dL (11.5-16.0)
[2018-05-19 10:26] LABS: Albumin, Blood 1.9 g/dL (3.4-5.0); Anion Gap 8 mmol/L (6-16); Blood Urea Nitrogen 53 mg/dL (8-24); Bun/Creatinine Ratio 14.3 (12.0-20.0); CO2, Blood 30 mmol/L (21-32); Chloride, Blood 100 mmol/L (98-108); Creatinine, Blood 3.71 mg/dL (0.40-1.00); Glomerular Filtration Rate 13 (60-); Glucose, Blood 108 mg/dL (70-99); Phosphorus, Blood 5.1 mg/dL (2.5-4.9); Sodium, Blood 138 mmol/L (136-145)
[2018-05-19 14:30] LABS: Vancomycin, Random 12.7 ug/mL
--- NOTE | 2018-05-19 19:49 | NUR ---
SHIFT SUMMARY Since diltiazem was titrated off (1100), pt's HR has slowly trended upwards. HR is between 100 and 110. This RN placed call to Dr Ortega to provide update. New orders given. Pt was having visual hallucinations this evening. She refused her dinner tray due to "cockroaches crawling all over". This RN explained to pt that there are no cockroaches. Pt did not believe this RN. When asked if she knew where she was, pt became angry, stating, "It doesn't matter where I think I am. I'm not going to tell you that right now". Bedside report given to oncoming TANNER Calhoun.
--- NOTE | 2018-05-19 19:50 | NUR ---
ASSUMED CARE PT RESTING IN ROOM COMFORTABLY. PER DAY SHIFT PT HAD NO ACUTE CHANGES IN STATUS. PT WENT FOR DIALYSIS TODAY. CONTINUES TO HAVE MOMENTS OF CONFUSION, AND SOME VISUAL/AUDITORY HALLUCINATIONS IN ROOM. PT WAS DC'D OFF IV CARDIZEM, PER DAY SHIFT RN, PROVIDER DOES NOT WANT IV RESTARTED IF AVOIDABLE. PROVIDER ENCOURAGES RN TO CALL FOR ADDITIONAL PO DOSE OF CARDIZEM IF HR INCREASES. RESP EVEN UNLABORED ON RA. DENIES PAIN. ATTENDS C/D/I. CALL LGHT IN REACH. BED ALARM ON FOR SAFETY.
--- NOTE | 2018-05-20 06:45 | NUR ---
SHIFT SUMMARY PT RESTING IN ROOM COMFORTABLY. NO ACUTE CHANGES T/O NIGHT. PT WAS TURNED Q2 AND TOLERATED FAIR. DENIED PAIN T/O NIGHT UNLESS PT WAS BEING TURNED. RESP EVEN UNLABORED ON RA. PT HR HAS STARTED TO INCREASE FROM 90-100, TO 110-120 AT APROX 0645 THIS AM. WILL MEDICATE PER EMAR. CALL LIGHT IS IN REACH.
[2018-05-20 16:07] LABS: Hematocrit 31.9 % (33.0-51.0); Mean Corpuscular HGB 31.9 pg (26.0-34.0); Mean Corpuscular HGB Conc 31.3 g/dL (31.5-36.5); Mean Corpuscular Volume 102 fL (80-100); Mean Platelet Volume 10.2 fL (9.1-12.4); Platelet Count 245 K/mm3 (150-400); RDW Coefficient Variation 19.6 % (11.7-14.2); RDW Standard Deviation 73.6 fL (35.1-46.3); Red Blood Cell Count 3.13 M/mm3 (3.80-5.20); White Blood Cell Count 10.38 K/mm3 (4.00-11.30)
[2018-05-20 16:30] LABS: Vancomycin, Random 25.5 ug/mL
[2018-05-20 16:51] LABS: BAND PERCENT MAN 2 % (0-8); BASOPHILS PERCENT MAN 0 % (0-2); EOSINOPHILS PERCENT MAN 0 % (0-6); LYMPHOCYTES ABSOLUTE MAN 1.34 K/mm3 (0.84-5.20); LYMPHOCYTES PERCENT MAN 13 % (21-46); MONOCYTES ABSOLUTE MAN 1.34 K/mm3 (0.16-1.47); MONOCYTES PERCENT MAN 13 % (4-13); NEUTROPHILS ABSOLUTE MAN 7.68 K/mm3 (1.96-9.15); SEG NEUTROPHILS PERCENT MAN 72 % (41-73); TOTAL CELLS COUNTED 100
--- NOTE | 2018-05-20 16:53 | NUR ---
Spiritual care visit conducted. I heard patient yelling down the halway something about the whole staff being crazy, so I opened the door and asked if the patient would be open to a visit from the spiritual care department. Patient hesitantly said "yes." I entered the room and introduced myself and asked patient what was bothering her. She insisted that the staff was out to get her and that they were all crazy. I asked her to give me an example of their "crazy" behavior and she said that they would not let her change clothes, take a shower or take [facility] to [facility]. I told her that the staff was careful to take care of her medical issues and that the "medical staff" staff focused first on her safety and health. I asked her about her spiritual background and what her goals are, we talked about her housing struggle and the few good friends she had. Patient was calm for the conversation until I got up to leave and she wanted to get up too and that is when her nurse, Arlyn, stepped in to calm her down.
--- NOTE | 2018-05-20 19:50 | NUR ---
ASSUMED CARE PT RESTING IN ROOM, OCCASIONALY CALLS OUT. PER DAY SHIFT RN NO ACUTE CHANGES IN STATUS. PT HEART RATE CONTINUES TO FLUCUATE 90'S-120'S ON PO CARDZIEM. NO OTHER CHANGES IN PT STATUS. CALL LIGHT IS IN REACH. BED ALARM ON FOR SAFETY.
--- NOTE | 2018-05-21 05:36 | NUR ---
SHIFT SUMMARY PT SLEEPING IN ROOM COMFORTABLY. PT DID HAVE TWO EPISODE OF TACHYCARDIA, SUSTAINED HR ABOVE 130. PT WAS MEDICATED PER EMAR FOR THESE EPISODES. PT TURNED Q2 HOURS, TOLERATED FAIR. ONE BM NOTED DURING SHIFT. RESP EVEN UNLABORED ON RA. DENIES PAIN UNLESS BEING TURNED. PT SLEPT OFF AND ON T/O NIGHT. WAS NOTED TO BE TALKING IN SLEEP AND TO SELF MULITPLE TIMES T/O NIGHT. PT STILL HAVING OCCASIONAL HALLUCINATIONS AND ASKING UNSEEN PEOPLE TO BE TAKEN OUT OF THE ROOM. CALL LIGHT IS IN REACH. BED ALARM ON FOR SAFETY.
[2018-05-21 11:08] LABS: Hematocrit 30.9 % (33.0-51.0); Hemoglobin 9.7 g/dL (11.5-16.0)
[2018-05-21 11:17] LABS: Albumin, Blood 1.9 g/dL (3.4-5.0); Anion Gap 12 mmol/L (6-16); Blood Urea Nitrogen 45 mg/dL (8-24); Bun/Creatinine Ratio 12.5 (12.0-20.0); CO2, Blood 26 mmol/L (21-32); Calcium, Blood 9.2 mg/dL (8.5-10.1); Chloride, Blood 100 mmol/L (98-108); Creatinine, Blood 3.61 mg/dL (0.40-1.00); Glomerular Filtration Rate 13 (60-); Glucose, Blood 116 mg/dL (70-99); Phosphorus, Blood 5.1 mg/dL (2.5-4.9); Potassium, Blood 4.1 mmol/L (3.5-5.5); Sodium, Blood 138 mmol/L (136-145)
[2018-05-21 14:08] LABS: Vancomycin, Random 14.9 ug/mL
--- NOTE | 2018-05-21 15:48 | NUR ---
Assumed Care: Assumed care of pt at approx 0700. VSS. In no apparent sign of distress. Pt is A&O to self, but very confused otherwise. Plan for dialysis today. Dr. Ortega in to see pt and plans to up cardizem dose. See shift assessment for detailed assessment. Pt is currently resting in bed with call light within reach. Denies any further questions, complaints or requests at this time. No apparent unmet needs at this time. Will continue to monitor.
--- NOTE | 2018-05-21 18:36 | NUR ---
Shift Summary: No acute changes since initial shift assessment. Mentation is more clear this evening - pt able to tell me her name, date, and is responding to questions more appropriately. Pt has been turned approx every two hours this shift while in the room. Pt has remained on RA. No acute events on tele. Pt denies any complaints or requests at this time. Deneis any acute events t/o the day. Tolerated dialysis well. Pt currently resting in bed with call light within reach. Denies any further questions, complaints or requests at this time. Will continue to monitor until report is given to solomon HART.
--- NOTE | 2018-05-21 21:08 | NUR ---
CARE ASSUMPTION PT ALERT, YELLING OUT "MOMMY" WHEN NO ONE IN PT ROOM. PT REFUSING VS ASSESSMENT AND BEGINS SWINGING ARMS AT THIS NURSE WHEN ATTEMPTING TO PROVIDE CARE. PT COMPLIED W/ SWALLOWING ONE MEDICATION THEN REFUSED REMAINING, STATING "LEAVE ME ALONE! QUIT TRYING TO KILL ME!" TIME SPENT ENCOURAGING PT AND EDUCATING. PT GLARES IN RESPONSE AND YELLS "FUCK YOU!" WILL CONTINUE TO MONITOR AND PROVIDE CARE ABLE.
--- NOTE | 2018-05-22 06:12 | NUR ---
SHIFT SUMMARY PT ALERT, ORIENTED TO SELF ONLY, CALLING OUT CONFUSEDLY AT BEGINNING OF SHIFT. PT HIGHLY AGITATED WHEN WOKEN FOR ROUTINE VS ASSESSMENTS AND PT CARE T/O SHIFT. PT INTERMITTENTLY REFUSING CARE, YELLING AND SWINGING ARMS AT STAFF. NURSING LAW EXAMINER IN ROOM AT BEGINNING OF SHIFT FOR BEHAVIORAL GUIDANCE AND HOSPITAL CARE EDUCATION. PT MORE APPROPRIATE TOWARDS STAFF THEREAFTER. SEE PREVIOUS NOTE. VSS. CARE PROVIDED ABLE. WILL CONTINUE TO MONITOR AND PROVIDE CARE UNTIL REPORT OFF TO DAY SHIFT RN.
[2018-05-22 13:19] LABS: Vancomycin, Random 17.2 ug/mL
--- NOTE | 2018-05-22 16:35 | NUR ---
Shift Summary No acute changes since intiial shift assessment. VSS. In no apparent sign of distress. Pt is A&Ox2-4 t/o the day. Sometimes pt calls out and does not respond appropriately and sometimes the pt is very appropriate in her responses. Pt has been turned Q2H. Pt has participated with Q2H turning. Pt has not experienced any other acute events and has not c/o any acute events t/o the shift. Currently resting in bed with call light within reach. Denies any further questions, complaints or requests at this time. [facility] until report is given to solomon HART.
--- NOTE | 2018-05-22 18:47 | NUR ---
Update: Pt c/o some R shoulder pain. Assessed shoulder, which appeared swollen and bruised - notified Dr. Campa, who ordered an ortho consult which was called in to a.s. No further orders received at this time. Pt currently resting in bed with call light within reach. No other apparent unmet needs at this time.
--- NOTE | 2018-05-23 04:32 | NUR ---
SHIFT SUMMARY PT MENTATION IMPROVING, PT ALERT, ORIENTED TO SELF, LOCATION, AND REASON FOR HOSPITALIZATION. PT MORE COMPLIANT W/ CARE, ALLOWING ASSESSMENTS AND PT CARE. PT LUNG SOUNDS CLEAR, SPO2 > 90% ON 2L NC OR RA. MONITOR SHOWS AFIB, HR 70'S-110. R SHOULDER LUMP NOTED, PT AWAITING ORTHO CONSULT. PT COCCYX RED W/ OPEN AREAS. MEPILEX PLACED THEN REMOVED D/T PT COMPLAINT OF DRESSING AND ASKING FOR DRESSING TO BE REMOVED. BRUISING SCATTERED T/O. HEELS IN BILAT HEEL PROTECTORS. MEPILEX DRESSINGS TO L LOWER LEG ABRASIONS. Q2H REPOSITIONING BY 2 STAFF MEMBERS W/ ATTENDS CHANGES NEEDED. PT CONTINUES TO INTERMITTENTLY CALL OUT "MOMMY!" AND "MOTHER!" THEN CALMS AND FALLS BACK TO SLEEP. WILL CONTINUE TO MONITOR AND PROVIDE CARE UNTIL REPORT OFF TO DAY SHIFT RN.
[2018-05-23 11:37] LABS: Body Fluid Crystals NEG (NEGATIVE)
[2018-05-23 14:57] LABS: Vancomycin, Random 15.1 ug/mL
--- NOTE | 2018-05-23 19:30 | NUR ---
Shift Summary No acute changes since initial shift assessment. VSS. In no apparent sign of distress. Pt has remained A&Ox4, and has not had any further episodes of confusion today. Pt has participated with repositioning. No acute events t/o the shift. Dr. Lan aspirated R shoulder lump today and specimen was sent to lab. Pt currently resting in bed with call light within reach - pt provided with soft touch call light wchich she is able to use and is no longer calling out. Pt denies any further questions, complaints or requests at this time. Report given to solomon HART.
--- NOTE | 2018-05-24 06:04 | NUR ---
SHIFT SUMMARY PT MEDICAL W/ TELE STATUS. A&O X4, CALM AND COOPERATIVE W/ CARE. PT NO LONGER YELLING OUT. PT USING CALL LIGHT APPROPRIATELY. NO EPISODES OF INCONTINENCE, PT USING BEDPAN. LUNG SOUNDS CLEAR, DIM IN BASES. SPO2 > 90% ON RA. MONITOR SHOWS AFIB, HR 80'S-110. PT C/O PAIN IN SHOULDERS, BACKSIDE, AND LEGS. PT TX'D PER EMAR. COCCYX RED W/ OPEN AREA, MEPILEX DRESSING IN PLACE. R SHOULDER LUMP DRAINED 05/23 W/ RETURN TO SOFTBALL SIZE SWELLING THIS AM. PT LYING IN BED W/ CALL LIGHT IN REACH. WILL CONTINUE TO MONITOR AND PROVIDE CARE UNTIL REPORT OFF TO DAY SHIFT RN.
--- NOTE | 2018-05-24 10:33 | NUR ---
PT ELEQUIS DOSE HELD THIS MORNING PER THE NOTE FROM DR GUILLERMO, IF THE HEMATOMA RETURNS HOLD ELEQUIS. SPOKE TO DR AUDREY FLORES TO HOLD TODAYS DOSE. DR WILL SEE THE PT SOON.
[2018-05-24 10:49] LABS: Hematocrit 30.3 % (33.0-51.0); Hemoglobin 9.4 g/dL (11.5-16.0)
[2018-05-24 11:09] LABS: Albumin, Blood 1.7 g/dL (3.4-5.0); Anion Gap 10 mmol/L (6-16); Blood Urea Nitrogen 49 mg/dL (8-24); Bun/Creatinine Ratio 12.8 (12.0-20.0); CO2, Blood 27 mmol/L (21-32); Chloride, Blood 100 mmol/L (98-108); Creatinine, Blood 3.83 mg/dL (0.40-1.00); Glomerular Filtration Rate 12 (60-); Glucose, Blood 149 mg/dL (70-99); Phosphorus, Blood 4.6 mg/dL (2.5-4.9); Potassium, Blood 3.8 mmol/L (3.5-5.5); Sodium, Blood 137 mmol/L (136-145)
[2018-05-24 13:31] LABS: Vancomycin, Random 8.9 ug/mL
--- NOTE | 2018-05-24 18:53 | NUR ---
SHIFT SUMMARY- PT HAD HEMODIALYSIS TODAY, IV VANCO CONTINUED AFTER, PO AZITHROMYACIN GIVEN AFTER. SPOKE TO DR VENTURA PT TO RECIEVE AZITHROMYACIN DAILY BUT IN DIALYSIS DAYS DO'T GIVE UNTIL AFTERR DIALYSIS.
--- NOTE | 2018-05-24 20:00 | NUR ---
ASSUMED CARE OF PT. PT ALERT TO SELF AND FOLLOWING DIRECTIONS. PT HAVING VISIBLE HALLUCINATIONS. VS STABLE. 02 SATS >92% ON RA. HR AFIB WITH A RATE IN THE 90'S PER MONITOR. BLE ELEVATED ON PILLOWS WITH TRACE EDEMA. MEDICATIONS GIVEN CRUSHED IN APPLESAUCE DUE TO ASPIRATION PRECAUTIONS. PT TOLERATED REPOSITIONING. WILL CONTINUE TO MONITOR.
--- NOTE | 2018-05-24 21:50 | NUR ---
REPORT GIVEN TO MEDICAL FLOOR RN. WILL TRANSFER PT.
--- NOTE | 2018-05-25 04:10 | NUR ---
SHIFT SUMMARY THE PT ADMITTED FOR TOXIC ENCEPHALOPATHY. LIMITED CODE STATUS-MEDICATIONS. MECH SOFT-GROUND MEAT DIET, NO MIXED CONSISTENCY, RENAL 120 G PROTEIN, ASPIRATION PRECAUTIONS, NO STRAW, UPRIGHT AT 90 DEGREES FOR MEALS AND MEDS. TELE-A-FIB IN THE 90S. MEDS CRUSHED IN APPLESAUCE. 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 1L FLUID RESTRICTION. IV R HAND AND R FA. 2L O2 AT NIGHT, NONE NEEDED DURING THE DAY. SS IS WORKING ON GUARDIANSHIP WITH PT. PT PREVIOUSLY LIVED AT [facility] BUT THEY WILL NOT TAKE PT BACK DUE TO NON-PAYMENT PER REPORT. DIALYSIS-[facility]. PT PRESENTED TO THE ED WITH CONFUSION. PT WITH ESRD ON DIALYSIS, LAST DIALYSIS ON 05/24/18. THE PT PRESENTS VERY CONFUSED WITH NON-SENSICAL PATTERN OF SPEACH. UNABLE TO REDIRECT. ALERT AND ORIENTED ONLY TO SELF. PT IS AWAKE AT THIS TIME YELLING OUT. NO APPARENT SIGNS OF ACUTE DISTRESS. FREQUENT VISUAL CHECKS IT DOES NOT APPEAR THAT PT USES CALL LIGHT OR IS ABLE TO MAKE NEEDS KNOWN. BED ALARM FOR SAFETY. WILL CONTINUE TO MONITOR.
--- NOTE | 2018-05-25 10:58 | NUR ---
Pt is alert, oriented to self, situation, place, date. She denies pain at this time, however, she complained of leg pain with repositioning. She reports that she needs to use the restroom and asks me to let her walk to the bathroom from her bed. I checked with nursing and was told that she does not get up, she is bedbound. She is reluctant to have me assist her on the bedpan. Followed instructions to ensure comfort during turning. This is difficult and reports that she would like to stop due to fatigue and pain. Repositioned in bed to comfort and reported to nurse. Nurse shares that patient is able to feed herself meals. Pt has declined bed bath for today. No concerns for her, apparently, pt is getting guardian appointed so that we can place her. Will remain available.
--- NOTE | 2018-05-25 17:51 | NUR ---
SHIFT SUMMARY NO ACUTE CHANGES. PATIENT DECLINED TO WORK WITH PT TODAY. PATIENT MEDICATED X1 FOR PAIN THIS SHIFT. DENIES NAUSEA OR SHORTNESS OF BREATH. PATIENT SHOULD HAVE DIALYSIS TOMORROW. GUARDIANSHIP IS BEING PURSUED. CALL LIGHT IN REACH, WILL CONTINUE TO MONITOR.
--- NOTE | 2018-05-26 04:56 | NUR ---
SHIFT SUMMARY NO APPARENT ACUTE CHANGES SO FAR THIS SHIFT. THE PT DOES HAVE AND XR AND CT ORDERED FOR TODAY BY DR. CAIN AND THE PT HAS BEEN NPO PER ORDERS. PER REPORT THE PT IS DUE TO HAVE DIALYSIS TODAY WELL. THE PT CONTINUE TO BE SIGNIFICANTLY CONFUSED, CALLING OUT BUT UNABLE TO IDENTIFY WHAT ASSISTANCE IS NEEDED. THE PT HAS NOT APPEARED TO SLEEP MUCH SO FAR THIS SHIFT. NO APPARENT SIGNS OF ACUTE DISTRESS. FREQUENT VISUAL CHECKS THE PT DOES NOT USE CALL LIGHT AND IS NOT ABLE TO MAKE NEEDS KNOWN. WILL CONTINUE TO MONITOR.
[2018-05-26 11:31] LABS: Vancomycin, Random 21.4 ug/mL
--- NOTE | 2018-05-26 13:51 | NUR ---
PT TO DAY SURGERY FOR I&D.
--- NOTE | 2018-05-26 14:41 | NUR ---
PT INTO SDS VIA BED FROM MEDICAL FLOOR. DISORIENTED. DR. CAIN DID 2 PHYSICAN CONSENT FOR PROCEDURE. History, Chart, Medications and Allergies reviewed before start of procedure. NPO STATUS REVEIWED WITH MED RN.
--- NOTE | 2018-05-26 17:18 | NUR ---
PT RETURNED TO MEDICAL FLOOR AT 1700. WE TRANSFERRED HER INTO HER HOSPITAL BED, HOOKED UP HER SCD, AND TOOK POST SURGERY VITAL SIGNS. THE PATIENT WAS UNCOOPERATIVE AND ANGRY. SHE HAS A UMANG DRAIN IN HER RIGHT SHOULDER, DRAINING RED, CLEAR FLUID. SHE HAS A 20 GAUGE IV IN HER RIGHT FOOT. WILL CONTINUE TO MONITOR.
--- NOTE | 2018-05-26 17:21 | NUR ---
SPOKE WITH DR CAIN, PER DR CAIN D/C IVF AND TO START LOVENOX 30 SC TOMORROW AT 1200. ORDERS PLACED.
--- NOTE | 2018-05-27 04:35 | NUR ---
SHIFT SUMMARY PT AGITATED AT BEGINNING OF SHIFT, REFUSING TO TAKE MEDICATIONS. PT HOLLERING OUT SHE'S GOING TO CALL THE POLICE. FINALLY AGREEABLE TO MEDICATIONS AND SLEPT FAIRLY WELL. UMANG DRAIN TO RIGHT SHOULDER EMPTIED OF 30 ML'S BLOODY DRAINAGE. WILL CONTINUE TO MONITOR.
[2018-05-27 05:12] LABS: BASOPHILS ABSOLUTE AUTO 0.02 K/mm3 (0.00-0.23); BASOPHILS PERCENT AUTO 0 % (0-2); EOSINOPHILS ABSOLUTE AUTO 0.07 K/mm3 (0.00-0.68); EOSINOPHILS PERCENT AUTO 1 % (0-6); Hematocrit 29.4 % (33.0-51.0); Hemoglobin 9.1 g/dL (11.5-16.0); IMMATURE GRAN ABSOLUTE AUTO 0.06 K/mm3 (0.00-0.10); IMMATURE GRAN PERCENT AUTO 1 % (0-1); LYMPHOCYTES ABSOLUTE AUTO 1.83 K/mm3 (0.84-5.20); LYMPHOCYTES PERCENT AUTO 27 % (21-46); MONOCYTES ABSOLUTE AUTO 0.68 K/mm3 (0.16-1.47); MONOCYTES PERCENT AUTO 10 % (4-13); Mean Corpuscular Volume 100 fL (80-100); Mean Platelet Volume 9.8 fL (9.1-12.4); NEUTROPHILS ABSOLUTE AUTO 4.11 K/mm3 (1.96-9.15); NEUTROPHILS PERCENT AUTO 61 % (41-73); Platelet Count 242 K/mm3 (150-400); RDW Coefficient Variation 18.1 % (11.7-14.2); RDW Standard Deviation 66.2 fL (35.1-46.3); Red Blood Cell Count 2.94 M/mm3 (3.80-5.20); White Blood Cell Count 6.77 K/mm3 (4.00-11.30)
[2018-05-27 06:08] LABS: Albumin, Blood 1.7 g/dL (3.4-5.0); Albumin/Globulin Ratio 0.3 (0.8-1.8); Bun/Creatinine Ratio 10.8 (12.0-20.0); Calcium, Blood 8.5 mg/dL (8.5-10.1); Creatinine, Blood 3.79 mg/dL (0.40-1.00); Globulin, Blood 5.1 g/dL (2.2-4.0); Total Protein, Blood 6.8 g/dL (6.4-8.2)
[2018-05-27 12:54] LABS: Vancomycin, Random 11.2 ug/mL
--- NOTE | 2018-05-27 15:40 | NUR ---
PRESSURE ULCER FOUND ON PT'S COCCYX. STAGE THREE PRESSURE ULCER. 2CM IN LENGTH, 1CM IN WIDTH. A PREVENTATIVE SACRAL MEPILEX WAS IN PLACE OVER THE WOUND TODAY. THE WOUND HAS BEEN CLEANED AND ANOTHER SACRAL MEPILEX IS IN PLACE NOW. LOG ROLLING AND REPOSITIONING IS PAINFUL FOR THE PT. SHE IS RELUCTANT TO REPOSITION IN BED BECAUSE OF THE PAIN SHE ENDURES. THE PT WAS MEDICATED WITH TYLENOL PER EMAR BEFORE BEING PLACED ON THE BEDPAN TODAY AND SHE TOLERATED IT WELL WITH ONLY MINIMAL COMPLAINTS OF BACK AND LEG PAIN. WILL ENCOURAGE THE PT TO ALLOW STAFF TO HELP HER REPOSITION TO AVOID FURTHER BREAKDOWN IN HER SACRAL AREA. WILL ENCOURAGE THE PT TO REPOSITION EVERY TWO HOURS, WILL INCLUDE PILLOWS TO FLOAT HER HIPS.
--- NOTE | 2018-05-27 17:49 | NUR ---
PT ATE [employer] THIS MORNING FOR BREAKFAST. SHE WENT TO DIALYSIS AROUND 0900 AND CAME BACK AROUND 1300. THE 20 GAUGE IN HER RIGHT FOOT FLUSHED EASILY TODAY, AND WAS USED TO ADMINISTER HER VANCOMYCIN THIS AFTERNOON. SHE HAS BEEN ORDERED A PICC LINE INSERTION FOR A FEW WEEKS OF IV VANCOMYCIN ADMINISTRATION. A PRESSURE ULCER WAS FOUND ON THE PT'S COCCYX, PHOTO TAKEN AND DOCUMENTED. SHE RECIEVED A BED BATH AT 1630. SHE IS ENCOURAGED TO ALLOW STAFF TO ASSIST HER IN REPOSTIONING EVERY 2 HOURS. SHE COMPLAINS OF PAIN IN HER LEGS, BACK AND SHOULDER. SHE HAS A UMANG DRAIN IN HER RIGHT SHOULDER.
--- NOTE | 2018-05-28 05:25 | NUR ---
SHIFT SUMMARY PT HAS HOLLERED OUT MOST OF THE NIGHT, UPON ENTERING ROOM PT ASLEEP MUCH OF THE TIME. PT HAS BEEN REPOSITIONED EVERY 2 HOURS. UMANG DRAIN EMPTIED OF 30 ML'S BLOODY DRAINAGE. DRESSING TO RIGHT SHOULDER INTACT. NO ACUTE CHANGES NOTED, WILL CONTINUE TO MONITOR.
--- NOTE | 2018-05-29 07:22 | NUR ---
SHIFT SUMMARY PT YELLING OUT. C/O PAIN IN BACK/NECK AND MEDICATED PER EMAR. SHE WAS ABLE TO FALL ASLEEP AFTER THAT. REFUSED REPOSITIONING SAYING SHE WAS COMFORTABLE SHE WAS AND DIDN'T WANT TO BE MOVED. REFUSED SCD'S. SHE WAS ABLE TO SLEEP THROUGH THE NIGHT. BED ALARM IN USE
[2018-05-29 09:38] LABS: Hematocrit 30.6 % (33.0-51.0); Hemoglobin 9.4 g/dL (11.5-16.0)
[2018-05-29 09:55] LABS: Albumin, Blood 1.7 g/dL (3.4-5.0); Anion Gap 9 mmol/L (6-16); Blood Urea Nitrogen 35 mg/dL (8-24); Bun/Creatinine Ratio 10.1 (12.0-20.0); CO2, Blood 29 mmol/L (21-32); Calcium, Blood 8.9 mg/dL (8.5-10.1); Chloride, Blood 100 mmol/L (98-108); Creatinine, Blood 3.45 mg/dL (0.40-1.00); Glomerular Filtration Rate 14 (60-); Glucose, Blood 133 mg/dL (70-99); Phosphorus, Blood 3.7 mg/dL (2.5-4.9); Sodium, Blood 138 mmol/L (136-145)
--- NOTE | 2018-05-29 13:08 | NUR ---
DIALYSIS PT SAID SHE WAS DONE AND WANTED OFF, IN A VERY CLEMENTS VOICE. SHE HAD 10 MIN LEFT SO WE TOOK HER OFF. SHE HAD BEEN GRUMBLING ABOUT ON FOR ABOUT 30 MINS BEFORE THIS. RAN 2 HOURS AND 50 MIN
[2018-05-29 14:22] LABS: Vancomycin, Random 15.4 ug/mL
--- NOTE | 2018-05-29 16:21 | NUR ---
PATIENT CAN BE CONFUSED AT TIMES BUT IS REDIRECTABLE . SHE HAD DIALYSIS THIS SHIFT AND AN ATTEMPT AT A PICC LINE. IT WAS UNSUCCESSFUL . SHE HAS REMAINED IN BED THROUGH OUT THE DAY. NO NEW ISSUES TO REPORT.
--- NOTE | 2018-05-30 06:36 | NUR ---
SHIFT SUMMARY PT ORIENTED TO SELF. CALLS OUT WHEN SHE NEEDS SOMETHING. C/O PAIN AND MEDICATED PER EMAR X2. SHE WAS ABLE TO GET TO SLEEP AFTER PAIN MED. UMANG DRAIN DRAINING. USED BED REDMOND VOIDING 100ML. REFUSED REPOSITIONING. BED ALARM IN USE
[2018-05-30 14:39] LABS: Vancomycin, Random 18.2 ug/mL
--- NOTE | 2018-05-30 17:29 | NUR ---
PATIENT HAS MOMENTS OF CONFUSION AND CAN BE QUITE FORGETTFUL . SHE HAS NO PROBLEM LETTING YOU KNOW HOW SHE IS FEELING OR THINKING AND CAN BE VERBALLY COMBATIVE WITH STAFF. NO NEW CHANGES TO THIS PATIENT. ALL CARES PREFORMED BUT MET WITH RESISTANCE .
--- NOTE | 2018-05-31 05:02 | NUR ---
SHIFT SUMMARY PT ORIENTED TO SELF. YELLS OUT WHEN SHE NEEDS SOMETHING. RESISTANT TO CARES AND TURNING. SHE WAS ABLE TO SLEEP T/O NIGHT. WILL CALL OUT OCCASIONALLY TALKING TO SOMEONE NOT THERE. OCCASIONAL CONGESTED SOUNDING COUGH. BED ALARM IN USE.
--- NOTE | 2018-05-31 09:40 | NUR ---
"DAY SURGERY RN | THIS RN TO HELP WITH PT CARE Patient ate 5% of meal at maximum and was talking with this RN. The pt was refusing to eat, and was visibily crying. This RN verbally comforted patient. Assigned RN aware of situation."
[2018-05-31 11:09] LABS: Albumin, Blood 1.8 g/dL (3.4-5.0); Anion Gap 9 mmol/L (6-16); Blood Urea Nitrogen 31 mg/dL (8-24); Bun/Creatinine Ratio 8.9 (12.0-20.0); CO2, Blood 29 mmol/L (21-32); Chloride, Blood 99 mmol/L (98-108); Creatinine, Blood 3.48 mg/dL (0.40-1.00); Glomerular Filtration Rate 14 (60-); Glucose, Blood 118 mg/dL (70-99); Phosphorus, Blood 3.7 mg/dL (2.5-4.9); Potassium, Blood 3.9 mmol/L (3.5-5.5); Sodium, Blood 137 mmol/L (136-145)
[2018-05-31 12:45] LABS: Vancomycin, Random 11.9 ug/mL
--- NOTE | 2018-05-31 17:54 | NUR ---
SHIFT SUMMARY PT A&O TO SELF. PT CONFUSED AND FORGETFUL AT TIMES. PT RESISTANCT TO CARE AND TURNING. PT REPORTS SEEING MEN IN THE ROOM WHEN FEMALE VALIDATION ENGINEER AND THIS RN WERE CHANGES ATTENDS THIS AM. PT RESTING IN BED DURING SHIFT. DIALYSIS THIS AM. PT PLACED ON 2L O2 THIS AM, PT O2 SATURATION IN 80'S, >90% ON 2L O2. PT REPORTS PAIN IN BACK/COCCYX, MEDICATION PER EMAR. PT DENIES N/V DURING SHIFT. R SHOULDER SURGICAL SITE, UMANG DRAIN IN PLACE, PATENT AND DRAINING SEROSANGEOUS FLUIDS. DR CAIN AT BEDSIDE THIS AFTERNOON. PT RECEIVING IV ANTIBITOICS. VSS. NO OTHER ACUTE CHAGNES NOTE DURING SHIFT. WILL CONTINUE TO MONITOR UNTIL REPORT GIVEN TO ONCOMING RN.
[2018-06-01 05:21] LABS: BASOPHILS ABSOLUTE AUTO 0.03 K/mm3 (0.00-0.23); BASOPHILS PERCENT AUTO 0 % (0-2); EOSINOPHILS ABSOLUTE AUTO 0.05 K/mm3 (0.00-0.68); EOSINOPHILS PERCENT AUTO 1 % (0-6); Hematocrit 32.1 % (33.0-51.0); Hemoglobin 9.8 g/dL (11.5-16.0); IMMATURE GRAN ABSOLUTE AUTO 0.08 K/mm3 (0.00-0.10); IMMATURE GRAN PERCENT AUTO 1 % (0-1); LYMPHOCYTES ABSOLUTE AUTO 2.35 K/mm3 (0.84-5.20); LYMPHOCYTES PERCENT AUTO 29 % (21-46); MONOCYTES ABSOLUTE AUTO 0.91 K/mm3 (0.16-1.47); MONOCYTES PERCENT AUTO 11 % (4-13); Mean Corpuscular HGB 30.4 pg (26.0-34.0); Mean Corpuscular HGB Conc 30.5 g/dL (31.5-36.5); Mean Corpuscular Volume 100 fL (80-100); Mean Platelet Volume 9.6 fL (9.1-12.4); NEUTROPHILS ABSOLUTE AUTO 4.82 K/mm3 (1.96-9.15); NEUTROPHILS PERCENT AUTO 59 % (41-73); Platelet Count 255 K/mm3 (150-400); RDW Coefficient Variation 17.7 % (11.7-14.2); RDW Standard Deviation 65.1 fL (35.1-46.3); Red Blood Cell Count 3.22 M/mm3 (3.80-5.20); White Blood Cell Count 8.24 K/mm3 (4.00-11.30)
--- NOTE | 2018-06-01 05:29 | NUR ---
SHIFT SUMMARY: PT HAS AUDITORY AND VISUAL HALLUCINATIONS T/O THE NIGHT; TALKING TO AND YELLING AT SOMEONE WHO IS NOT THERE, SEEING PEOPLE IN THE ROOM THAT ARE NOT THERE. PT IS VERBALLY COMBATIVE AND THREATENING AT TIMES, BUT IS SWEET AND THANKFUL AT OTHER TIMES. PT IS VERY RESISTANT TO Q2H TURNS AND ATTENDS CHANGE/DAVID CARE, SCREAMS AT STAFF TO LEAVE HER ALONE AND NOT TOUCH HER. ABLE TO CONVINCE PT ON A FEW OCCASIONS AFTER EDUCATING ON IMPORTANCE OF THESE TASKS. BARRIER CREAM APPLIED TO DAVID AREA, PRESSURE UCLER ON COCCYX CLEANED + REDRESSED c MEPILEX. UMANG DRAIN TO R SHOULDER HAS SCANT AMOUNT OF BLOODY DRAINAGE; DRESSING AND SITE APPEAR WNL. NO OTHER CHANGES TO REPORT THIS SHIFT. WILL CONT TO MONITOR AND PROVIDE CARE UNTIL PRESUMED BY ONCOMING RN.
[2018-06-01 05:54] LABS: Albumin, Blood 1.8 g/dL (3.4-5.0); Albumin/Globulin Ratio 0.3 (0.8-1.8); Bun/Creatinine Ratio 7.7 (12.0-20.0); Calcium, Blood 8.9 mg/dL (8.5-10.1); Creatinine, Blood 2.59 mg/dL (0.40-1.00); Globulin, Blood 5.4 g/dL (2.2-4.0); Potassium, Blood 3.5 mmol/L (3.5-5.5); Total Protein, Blood 7.2 g/dL (6.4-8.2)
--- NOTE | 2018-06-01 16:25 | NUR ---
DR CAIN AT BEDSIDE, REMOVED UMANG DRAIN FOR RIGHT SHOULDER. EXUDRY DRESSING PLACED, WITH COMPRESSION TAPE ON TOP. DAILY DRESSING CHANGES STARTING TOMORROW.
--- NOTE | 2018-06-01 17:44 | NUR ---
SHIFT SUMMARY PT A&O TO SELF, CONFUSED AND FORGETFUL AT TIMES. RESISTANT TO CARE. PT AGGITATES THIS AM, YELLING AT STAFF, MEDICATED WITH SEROQUEL x1. PT RESTING IN BED DURING SHIFT, ATTEPMTING TO TURN PT RESISTANT TO CARE. PT APPEARS TO BE SLEEPING INTERMITTENTLY T/O SHIFT. PT ON 2L O2 VIA NC, SOB WITH EXERTION. PT REPEATEDLY TAKES OFF NC. PT REPORTS PAIN IN R SHOULDER, LIDOCAIN PATCH IN PLACE, MEDICATED WITH NORCO x1. PT DENIES N/V. DR RAMIREZ ORDERD FOR PIV TO BE TAKEN OUT OF FOOT THIS AM, VANCO SHOULD BE GIVEN WITH DIALYSIS. DR ROSS NOTIFIED AND PHARMACY NOTIFIED. NO IV AT THIS TIME. VSS. NO OTHER ACUTE CHANGES NOTED DURING SHIFT. WILL CONTINUE TO MONITOR UNTIL REPORT GIVEN TO ONCOMING RN.
[2018-06-02 05:50] LABS: BASOPHILS ABSOLUTE AUTO 0.05 K/mm3 (0.00-0.23); BASOPHILS PERCENT AUTO 1 % (0-2); EOSINOPHILS ABSOLUTE AUTO 0.05 K/mm3 (0.00-0.68); EOSINOPHILS PERCENT AUTO 1 % (0-6); Hematocrit 30.4 % (33.0-51.0); Hemoglobin 9.2 g/dL (11.5-16.0); IMMATURE GRAN ABSOLUTE AUTO 0.12 K/mm3 (0.00-0.10); IMMATURE GRAN PERCENT AUTO 2 % (0-1); LYMPHOCYTES ABSOLUTE AUTO 2.55 K/mm3 (0.84-5.20); LYMPHOCYTES PERCENT AUTO 32 % (21-46); MONOCYTES ABSOLUTE AUTO 0.84 K/mm3 (0.16-1.47); MONOCYTES PERCENT AUTO 11 % (4-13); Mean Corpuscular HGB 30.8 pg (26.0-34.0); Mean Corpuscular HGB Conc 30.3 g/dL (31.5-36.5); Mean Corpuscular Volume 102 fL (80-100); Mean Platelet Volume 9.1 fL (9.1-12.4); NEUTROPHILS ABSOLUTE AUTO 4.26 K/mm3 (1.96-9.15); NEUTROPHILS PERCENT AUTO 54 % (41-73); Platelet Count 294 K/mm3 (150-400); RDW Coefficient Variation 17.9 % (11.7-14.2); RDW Standard Deviation 66.5 fL (35.1-46.3); Red Blood Cell Count 2.99 M/mm3 (3.80-5.20); White Blood Cell Count 7.87 K/mm3 (4.00-11.30)
[2018-06-02 06:09] LABS: Albumin, Blood 1.8 g/dL (3.4-5.0); Albumin/Globulin Ratio 0.3 (0.8-1.8); Bun/Creatinine Ratio 7.9 (12.0-20.0); Calcium, Blood 9.2 mg/dL (8.5-10.1); Creatinine, Blood 3.3 mg/dL (0.40-1.00); Globulin, Blood 5.2 g/dL (2.2-4.0); Potassium, Blood 3.5 mmol/L (3.5-5.5)
--- NOTE | 2018-06-02 06:38 | NUR ---
SHIFT SUMMARY PT IS A 73 Y/O FEMALE, ADMITTED FOR TOXIC ENCEPHALOPATHY. SHE IS A&O TO SELF ONLY. THE PT SLEPT WELL THROUGH THE NIGHT, THOUGH SHE OCCASIONALLY YELLED OUT IN HER SLEEP. SHE DENIED ANY PAIN, NAUSEA OR SOB WHEN AWAKE. VITALS REMAINED STABLE. NO OTHER ACUTE CHANGES IN PT CONDITION NOTED. WILL CONTINUE TO MONITOR AND TREAT.
[2018-06-02 11:12] LABS: Vancomycin, Random 17.3 ug/mL
--- NOTE | 2018-06-02 15:21 | NUR ---
DRY DRESSING PLACED TO R SHOULDER PER DR. CAIN. R SHOULDER WITH SUTURING AND NO S/S OF INFECTION. FREQUENTLY YELLS OUT. HALLUCINATIONS NOTED.. SUCH "MY DOG IS IN BED WITH ME." WILL CONTINUE TO MONITOR. HD COMPLETED EARLIER.
--- NOTE | 2018-06-02 18:17 | NUR ---
NO ACUTE CHANGES. HYDROJEL DRESSING PLACED OVER PRESSURE ULCER AT COCCYX AREA. WOUND DRY IN APPEARANCE. DAVID-AREA RED/SHAFFED COVERED WITH CALAZYME. CURRENTLY HAVING DINNER. PLEASANT AT THIS TIME BUT CAN HAVE PERIODS OF IRRITABILITY.
--- NOTE | 2018-06-03 03:57 | NUR ---
NOC SHIFT SUMMARY AT 2116 SHIFT ASSESMENT WAS DONE ON PT. AT THAT TIME PT ABSOLUTELY REFUSED TO ALLOW ASSESMENT OF SKIN ON BACK OR COXXYC OR TO BE REPOSITIONED. IT WAS EXPLAINED TO HER THAT SHE HAD A SORE ON HER COXXYX AREA THAT COULD WORSEN IF SHE WERE NOT TURNED. PT VERBALIZED UNDERSTANDING BUT CONTINUED TO REFUSE. SHE STATED THAT SHE WAS COMFORTABLE AND DID NOT WANT TO BE MOVED. PT WAS VERY IRRITABLE. PT HAS SLEPT MOST OF THE NIGHT. CURRENTLY APPEARS TO BE SLEEPING. APPEARS IN NO ACUTE DISTRESS. WILL CONTINUE TO MONITOR.
[2018-06-03 05:23] LABS: BASOPHILS ABSOLUTE AUTO 0.04 K/mm3 (0.00-0.23); BASOPHILS PERCENT AUTO 1 % (0-2); EOSINOPHILS PERCENT AUTO 1 % (0-6); Hematocrit 31.1 % (33.0-51.0); Hemoglobin 9.4 g/dL (11.5-16.0); IMMATURE GRAN ABSOLUTE AUTO 0.11 K/mm3 (0.00-0.10); IMMATURE GRAN PERCENT AUTO 2 % (0-1); LYMPHOCYTES ABSOLUTE AUTO 2.71 K/mm3 (0.84-5.20); LYMPHOCYTES PERCENT AUTO 37 % (21-46); MONOCYTES ABSOLUTE AUTO 0.82 K/mm3 (0.16-1.47); MONOCYTES PERCENT AUTO 11 % (4-13); Mean Corpuscular HGB 30.6 pg (26.0-34.0); Mean Corpuscular HGB Conc 30.2 g/dL (31.5-36.5); Mean Corpuscular Volume 101 fL (80-100); Mean Platelet Volume 9.4 fL (9.1-12.4); NEUTROPHILS PERCENT AUTO 48 % (41-73); Platelet Count 288 K/mm3 (150-400); RDW Coefficient Variation 17.7 % (11.7-14.2); RDW Standard Deviation 65.9 fL (35.1-46.3); Red Blood Cell Count 3.07 M/mm3 (3.80-5.20); White Blood Cell Count 7.28 K/mm3 (4.00-11.30)
[2018-06-03 05:56] LABS: Albumin, Blood 1.8 g/dL (3.4-5.0); Albumin/Globulin Ratio 0.3 (0.8-1.8); Bilirubin, Total 1.5 mg/dL (0.1-1.0); Bun/Creatinine Ratio 6.9 (12.0-20.0); Creatinine, Blood 2.45 mg/dL (0.40-1.00); Globulin, Blood 5.4 g/dL (2.2-4.0); Potassium, Blood 4.1 mmol/L (3.5-5.5); Total Protein, Blood 7.2 g/dL (6.4-8.2)
--- NOTE | 2018-06-03 14:16 | NUR ---
PT PLEASANT, IRRITABLE AT TIMES. A/O SELF, FAM, CONFUSED TO WHEN LAST WALKED. H/R IS IRREG, NO MURMER NOTED. NO TELE. LUNGS CLEAR, RESP EASY, UNLABORED. ON 2L N.C . BT X4 LAST BM YEST. STATES IS NOT ANURIC, EVEN THO ON DIALYSIS. SHE STATES SHE URINATES A LITTLE EACH DAY USUALLY. DIALYSIS FISTULA IN LFA. RT SHOULDER HAS GAUZE DRESSING COVERING. CDI AT THIS TIME. PRESSURE ULCCER ON COCCYX. MEPILEX IN PLACE, CDI. NO DIALYSIS ORDERD TODAY. BED IN LOW POSITIOIN, CALL LITE IN REACH, CALLS APPROP
--- NOTE | 2018-06-03 18:07 | NUR ---
PT PLEASANT TODAY. DID MEDICATE FOR PAIN X1 NORCO TODAY. PT DID NAP FOR 2-3 HOURS. PT STATES RESTED WELL. PAIN PATCH PLACED ON BACK THIS AM. NO DIALYSIS TODAY. PT ASKS IF GOING HOME YET. ASSURED WE ARE LOOKING FOR AN OPENING THAT WILL ACCEPT DIALYSYS PTS. SHE IS ACCEPTING WE ARE TRYING TO HEAL SHOULDER AND ABLE TO GET HER HOME. SHE STATES UNDERSTANDS. BED IN LOW POSITIOIN, CALL LITE IN REACH, BED ALARM ON FOR SAFETY
--- NOTE | 2018-06-04 06:20 | NUR ---
NOC SHIFT SUMMARY PT HAS BEEN PLEASANT AND COOPERATIVE THIS NIGHT. SHE HAS BEEN HALLUCINATING AND SEEING DOGS IN HER ROOM RUNNING AROUND. HAS BEEN TURNED [id number] THROUGH THE NIGHT FOR PRESSURE SORE ON COXXYX. HAS SLEPT PEACEFULLY FOR MOST OF NIGHT. APPEARS IN NO ACUTE DISTRESS. WILL CONTINUE TO MONITOR.
--- NOTE | 2018-06-04 09:23 | NUR ---
PATIENT REFUSED DIALYSIS TODAY. SHE IS STILL SEEING THINGS AND HAS BEEN HALLUCINATING THIS MORNING. SHE ASKED WHY WE CUT OFF HER FEET, AND STATED THAT HER DOCTOR TOLD HER SHE DID NOT NEED DIALYSIS UNTIL THURSDAY MORNING. SHE KNEW TODAY WAS THURSDAY AND HAS PERIODS OF CLARITY.
--- NOTE | 2018-06-04 10:00 | NUR ---
DIALYSIS- PT REFUSED DIALYSIS TODAY. STATED THAT SHE WOULD DO IT THURSDAY.
--- NOTE | 2018-06-04 11:30 | NUR ---
PATIENT UNPLEASANT TODAY. HAVING HALLUCINATIONS ABOUT PEOPLE CUTTING OFF HER FEET, SEEING DOGS, AND THINKS SHE IS HOME. SHE IS REFUSING SOME CARE AND AGREEING TO SOME. WILL MONITOR FOR ANY CHANGES. CURRENTLY PATIENT IS REFUSING DIALYSIS, AND REFUSING TO BE "POKED BY NEEDLES". SHE STATES THAT HER DOCTOR TOLD HER SHE DID NOT HAVE TO GET DIALYSIS UNTIL THURSDAY.
--- NOTE | 2018-06-04 16:33 | NUR ---
PATIENT CONTINUING TO REFUSE CARE. HAVING MILD HALLUCINATIONS AND STATES SHE FEELS LIKE SHE IS "LOSING TIME". WILL MONITOR FOR ANY CHANGES. SHE REQUESTED PAIN MEDICATION AND DENIED PAIN. SHE ALSO WILL ASK FOR SOMETHING AND STATES SHE DID NOT ASK FOR IT.
--- NOTE | 2018-06-04 17:15 | NUR ---
SHIFT SUMMARY PATIENT HAS REFUSED MOST CARE. SHE AGREED TO TAKE HER REGULAR MEDICATIONS THIS MORNING. SHE REFUSED DIALYSIS SHE STATES THAT HER DOCTOR TOLD HER SHE DID NOT NEED DIALYSIS UNTIL THURSDAY. THERE ARE NO CHANGES WITH THE PATIENT TODAY. STILL AWAITING GUARDIANSHIP FROM THE PATIENT AND WAITING FOR CARE CHANGES.
--- NOTE | 2018-06-05 06:48 | NUR ---
SHIFT SUMMARY PT HAS SLEPT ON/OFF T/O NIGHT, CALLS OUT NAMES & TALKS TO SELF IN SLEEP. AOX1. VSS. DENIES N/V OR SOB. REPORTED 6/10 PAIN IN R SHOULDER & WAS MEDICATED 1X W/NORCO PER ORDERS. R SHOULDER DRESSING IS C/D/I W/O ANY DRAINAGE NOTED. PT IRRITABLE W/STAFF @TIMES WHEN PERFORMING CARE. PT REPORTS SEEING A "DOG" & HER "SON" COME INTO ROOM WHEN NOONE BUT MYSELF & PT WERE IN ROOM. PT INCONTINENT OF URINE 2X & WAS CHANGED PRN, REFUSES TO BE TURNED Q2 & STATES "CAN'T YOU JUST LEAVE ME ALONE." CALL LIGHT IS IN REACH & I WILL CONT TO MONITOR PT.
[2018-06-05 14:45] LABS: Vancomycin, Random 19.2 ug/mL
--- NOTE | 2018-06-05 17:23 | NUR ---
THIS PT IS ALERT AND ORIENTED TO HERSELF. SHE IS CONFUSED. SHE HLLUCINATES AND IS DELUSIONAL. SHE IS A HEMODIALYSIS PT. SHE UNDERWENT DIALYSIS TODAY, 2,000 ML WAS REMOVED. SHE HAS A FISTULA IN HER LEFT FOREARM. ATTENDS ARE IN PLACE. THE PT WILL USE A BEDPAN. SHE IS FLOATING ON PILLOWS. ASPIRATION PRECAUTIONS. THE DRESSING ON HER SURGICAL SITE WAS CHANGED TODAY, 06/05/18. THE MEPILEX ON HER COCCYX WAS CHNAGED TODAY, 06/05/18. SHE HAD A BED BATH TODAY, 06/05/18. NO ACUTE CHANGES TODAY. WILL CONTINUE TO MONITOR.
--- NOTE | 2018-06-06 06:49 | NUR ---
SHIFT SUMMARY PT SLEPT ON/OFF T/O NIGHT YELLS OUT FREQUENTLY & TALKS IN SLEEP. AOX1, TO SELF ONLY, HAS DIFFICULTY FOLLOWING DIRECTIONS. HAD BOTH VISUAL & AUDITORY HALLUCINATIONS ALL NIGHT. VSS. NO S/S OF SOB OR N/V. REPORTED PAIN THIS AM BUT HAD DIFFICULTY STATING WHERE PAIN WAS LOCATED, MEDICATED 1X W/NORCO PER ORDERS. CALL LIGHT IS IN REACH & BED ALARM IS ON.
--- NOTE | 2018-06-06 17:55 | NUR ---
THIS PT IS ALERT AND ORIENT ONLY TO HERSELF. SHE IS CONFUSED AND HALLUCINATING. SHE HAS HAD A POOR APPETITE TODAY. ATTENDS ARE IN PLACE. SHE CAN USE THE BEDPAN. SHE HAS A MEPILEX IN PLACE ON HER COCCYX. AND A DRESSING IN PLACE ON HER RIGHT SHOULDER SURGICAL SITE. DRESSING CHANGED TODAY, 06/06/18. NO ACUTE CHANGES TODAY, WILL CONTINUE TO MONITOR.
--- NOTE | 2018-06-07 06:54 | NUR ---
SHIFT SUMMARY PT HAS BEEN SLEEPING SOUNDLY T/O SHIFT, AWAKES W/VERBAL STIMULI & WILL FALL BACK ASLEEP BETWEEN ASKING QUESTIONS. AOX1. UNABLE TO FOLLOW DIRECTIONS THIS SHIFT. NO S/S OF N/V OR PAIN. SPO2 DROPPED TO LOW 70'S ON RA IN MIDDLE OF NIGHT, RT WAS CALLED & WE PLACED PT ON 4L NC, SPO2 THAN WENT TO LOW 90'S ON THE 4L. PT HAS JVD, +1 PITTING EDEMA IN BLE, BILATERAL UPPER LOBES SOUND COURSE UNTIL PT COUGHS & THEN LUNGS ARE DIM T/O. PT HAS NOT VOIDED THIS SHIFT, HOWEVER PT HAS HAD BARELY ANY PO INTAKE. ORAL CARE WAS PROVIDED SINCE ORAL CAVITY IS REALLY DRY FROM MOUTH BREATHING. CALL LIGHT IS IN REACH & I WILL CONT. TO MONITOR PT UNTIL DAY SHIFT RN ASSUMES CARE.
--- NOTE | 2018-06-07 09:31 | NUR ---
DIAYSIS TRANSPORTED TO DIALYSIS TREATMENT ROOM VIA BED.
[2018-06-07 09:48] LABS: Hematocrit 32.3 % (33.0-51.0); Hemoglobin 9.9 g/dL (11.5-16.0)
[2018-06-07 10:15] LABS: Anion Gap 9 mmol/L (6-16); Blood Urea Nitrogen 28 mg/dL (8-24); Bun/Creatinine Ratio 7.8 (12.0-20.0); CO2, Blood 29 mmol/L (21-32); Calcium, Blood 9.4 mg/dL (8.5-10.1); Chloride, Blood 101 mmol/L (98-108); Creatinine, Blood 3.59 mg/dL (0.40-1.00); Glomerular Filtration Rate 13 (60-); Glucose, Blood 91 mg/dL (70-99); Phosphorus, Blood 3.6 mg/dL (2.5-4.9); Potassium, Blood 4.1 mmol/L (3.5-5.5); Sodium, Blood 139 mmol/L (136-145); Vancomycin, Random 17.6 ug/mL
--- NOTE | 2018-06-07 18:47 | NUR ---
PT VERY DROWSY THIS MORNING, AM MEDS HELD FOR DIALYSIS. REMAINED DROWSY WHEN SHE RETURNED FROM DIALYSIS. WOKE ENOUGH FOR PO MEDS AROUND 1430, SHE WAS IRRITABLE AND PARANOID. REFUSED LUNCH WHEN SHE AWOKE AND REFUSED ASSISTANCE WITH DINNER. WILL CONTINUE TO MONITOR AND REPORT TO ONCOMING RN
--- NOTE | 2018-06-08 07:27 | NUR ---
CT SCAN TECHNOLOGIST SUMMARY NO ACUTE CHANGES THIS SHIFT. PT AAOX2, COOPERATIVE AT TIMES BUT IS OFTEN IRRITABLE. TOOK MEDS CRUSHED IN APPLESAUCE BUT REFUSED COLACE. ASSISTED PT WITH TURNS AND CHANGES ALLOWED BY PT. NYSTATIN POWDER TO GROIN AND UNDER BREASTS. MEPILEX DRESSING ON COCCYX CHANGED. VSS, REPORT GIVEN TO ONCOMING TANNER SHERMAN.
--- NOTE | 2018-06-09 06:00 | NUR ---
THERMOCOUPLE TESTER SUMMARY NO ACUTE CHANGES THIS SHIFT. PT AAOX2 WITH OCCASIONAL CONFUSION. HAS BEEN FAIRLY PLEASANT TONIGHT AND HAS FOLLOWED DIRECTION. TAKES MEDS WELL CRUSHED IN APPLESAUCE. ASSISTED WITH TURNS Q2H ALLOWED BY PT. HIPS FLOATED TO KEEP PRESSURE OFF PRESSURE ULCER ON COCCYX. SURGICAL DRESSING ON R SHOULDER C/D/I. VSS, WILL CONTINUE TO MONITOR.
[2018-06-09 10:58] LABS: Hematocrit 32.5 % (33.0-51.0); Hemoglobin 10.1 g/dL (11.5-16.0)
[2018-06-09 11:19] LABS: Anion Gap 11 mmol/L (6-16); Blood Urea Nitrogen 29 mg/dL (8-24); Bun/Creatinine Ratio 8.1 (12.0-20.0); CO2, Blood 28 mmol/L (21-32); Calcium, Blood 9.2 mg/dL (8.5-10.1); Chloride, Blood 99 mmol/L (98-108); Creatinine, Blood 3.57 mg/dL (0.40-1.00); Glomerular Filtration Rate 13 (60-); Glucose, Blood 116 mg/dL (70-99); Phosphorus, Blood 3.7 mg/dL (2.5-4.9); Potassium, Blood 3.8 mmol/L (3.5-5.5); Sodium, Blood 138 mmol/L (136-145); Vancomycin, Random 21.4 ug/mL
--- NOTE | 2018-06-09 18:19 | NUR ---
SUMMARY PT SITTING UP IN BED, HAS HAD DIALYSIS TODAY, DIANA WELL, PT REMAINS PLEASANTLY CONFUSED, R SHOULDER SURGICAL SITE WITH STERI STRIPS INTACT, PT MED PER EMAR FOR PAIN, VSS, WILL CONT TO MONITOR
--- NOTE | 2018-06-10 06:31 | NUR ---
73 Y/O FEMALE RIGHT SHOULDER STERI STRIPES DRY AND INTACT (OPEN TO AIR). PT SLEPT ALL EVENING AFTER TAKING EVENING MEDS CRUSHED IN APPLESAUCE. PT REQUIRES TURNS EVERY TWO HOURS BY STAFF AND TOLERATED ACTIVITY WELL. PTS FISTULA TO LFA INTACT. PT CONTINUED ON CONTACT ISOLATION WITH SIGN POSTED OUTSIDE OF ROOM. PTS BED IN LOW POSITION AND CALL LIGHT AT BEDSIDE.
--- NOTE | 2018-06-10 15:49 | NUR ---
pt resting no s/s of pain dr wild in to see pt.
--- NOTE | 2018-06-10 17:54 | NUR ---
SUMMARY PT AWAKE IN BED EATING DINNER WITH ASSISTANCE, PT DID NOT HAVE DIALYSIS TODAY, PT HAS BEEN MED PER EMAR FOR PAIN, PT HAS BEEN PLEASANTLY CONFUSED AND FORGETFUL, OFTEN WITH NONSENSICAL SPEECH, DRESSING TO R SHOULDER REMAINS INTACT WITH STERI STRIPS, NO DRAINANGE, BRUISING OR BLEEDING, VSS, NO ACUTE CHANGES, WILL CONT TO MONITOR
--- NOTE | 2018-06-11 04:00 | NUR ---
73 Y/O FEMALE RESTED QUIETLY IN BED ALL EVENING. PT DENIES PAIN OR NAUSEA. PTS RIGHT SHOULDER 1/2 INCH STERI STRIPES INTACT AND OPEN TO AIR. PT ALERT AND ORIENTED X 2, ABLE TO FOLLOW SIMPLE VERBAL COMMANDS. PTS BED IN LOW POSITION AND CALL LIGHT AT SIDE.
[2018-06-11 09:41] LABS: Hemoglobin 10.7 g/dL (11.5-16.0)
[2018-06-11 10:05] LABS: Albumin, Blood 2.1 g/dL (3.4-5.0); Anion Gap 10 mmol/L (6-16); Blood Urea Nitrogen 24 mg/dL (8-24); Bun/Creatinine Ratio 7.7 (12.0-20.0); CO2, Blood 29 mmol/L (21-32); Calcium, Blood 9.4 mg/dL (8.5-10.1); Chloride, Blood 98 mmol/L (98-108); Creatinine, Blood 3.11 mg/dL (0.40-1.00); Glomerular Filtration Rate 16 (60-); Glucose, Blood 104 mg/dL (70-99); Phosphorus, Blood 3.6 mg/dL (2.5-4.9); Potassium, Blood 3.9 mmol/L (3.5-5.5); Sodium, Blood 137 mmol/L (136-145); Vancomycin, Random 15.4 ug/mL
--- NOTE | 2018-06-11 18:17 | NUR ---
SUMMARY PT RESTING IN BED, PT REMAINS CONFUSED, PT DID GET DIALYSIS TODAY, PT HAS BEEN IRRITABLE T/O THE DAY, PT HAS BEEN MED PER EMAR FOR C/O PAIN, VSS, NO ACUTE CHANGES, WILL CONT TO MONITOR
--- NOTE | 2018-06-12 04:31 | NUR ---
SHIFT SUMMARY PT HAS SLEPT OFF AND ON THROUGHOUT THE SHIFT. PT HAD PERIODS OF HALLUCINATING AND TALKING TO HALLUCINATIONS. PT IS CONFISED BUT IS ABLE TO FOLLOW DIRECTION EASILY. PT HAD NO ACUTE ISSUES NOTED. PT IS CURRENTLY SLEEPING AND BREATHING EASY. CALL LIGHT IN REACH.
[2018-06-12 05:19] LABS: BASOPHILS ABSOLUTE AUTO 0.04 K/mm3 (0.00-0.23); BASOPHILS PERCENT AUTO 0 % (0-2); EOSINOPHILS PERCENT AUTO 1 % (0-6); Hematocrit 35.5 % (33.0-51.0); Hemoglobin 10.9 g/dL (11.5-16.0); IMMATURE GRAN ABSOLUTE AUTO 0.09 K/mm3 (0.00-0.10); IMMATURE GRAN PERCENT AUTO 1 % (0-1); LYMPHOCYTES ABSOLUTE AUTO 4.05 K/mm3 (0.84-5.20); LYMPHOCYTES PERCENT AUTO 41 % (21-46); MONOCYTES ABSOLUTE AUTO 1.26 K/mm3 (0.16-1.47); MONOCYTES PERCENT AUTO 13 % (4-13); Mean Corpuscular HGB 30.4 pg (26.0-34.0); Mean Corpuscular HGB Conc 30.7 g/dL (31.5-36.5); Mean Corpuscular Volume 99 fL (80-100); Mean Platelet Volume 9.4 fL (9.1-12.4); NEUTROPHILS ABSOLUTE AUTO 4.46 K/mm3 (1.96-9.15); NEUTROPHILS PERCENT AUTO 45 % (41-73); Platelet Count 217 K/mm3 (150-400); RDW Coefficient Variation 17.7 % (11.7-14.2); RDW Standard Deviation 64.9 fL (35.1-46.3); Red Blood Cell Count 3.58 M/mm3 (3.80-5.20)
[2018-06-12 06:03] LABS: Albumin, Blood 2.1 g/dL (3.4-5.0); Albumin/Globulin Ratio 0.4 (0.8-1.8); Bun/Creatinine Ratio 6.6 (12.0-20.0); C-REACTIVE PROTEIN, EXT RANGE 7.82 mg/dL (0.000-0.300); Calcium, Blood 9.4 mg/dL (8.5-10.1); Creatinine, Blood 2.27 mg/dL (0.40-1.00); Globulin, Blood 5.8 g/dL (2.2-4.0); Magnesium, Blood 1.9 mg/dL (1.6-2.4); Phosphorus, Blood 2.6 mg/dL (2.5-4.9); Potassium, Blood 3.7 mmol/L (3.5-5.5); Total Protein, Blood 7.9 g/dL (6.4-8.2)
--- NOTE | 2018-06-12 18:42 | NUR ---
SHIFT SUMMARY: NO ACUTE CHANGES TO REPORT THIS SHIFT. PT ALERT; DEMENTIA; ORIENTED TO SELF; HALLUCINATIONS. PT ON BEDREST. LIDOCAINE PATCH TO R SHOULDER; NO OTHER C/O PAIN. AWAITING [employer] LETTER. [facility].
--- NOTE | 2018-06-13 04:16 | NUR ---
SHIFT SUMMARY PT HAS SLEPT T/O SHIFT. PT HAS NOT HAD ANY EPISODES OF HALLUCINATIONS OR YELLING OUT. PT HAD NO ACUTE ISSUES NOTED. PT HAS NOT COMPLAINED OF ANY DISCOMFORT. PT CURRENTLY SLEEPING AND BREATHING EASY. CALL LIGHT IN REACH.
--- NOTE | 2018-06-13 19:21 | NUR ---
SHIFT SUMMARY ASLEEP FOR MUCH OF THE SHIFT. EASILY AROUSED BY VERBAL STIMULI. INCONTINENT OF BOWEL. OLIGURIA. DID NOT RECEIVED DIALYSIS TODAY. REPOSITIONED Q2. CONFUSED, AGITATED AT TIMES BUT FOLLOWING DIRECTIONS WELL. NO VISITS BY CARE MANAGEMENT TODAY.
--- NOTE | 2018-06-14 04:29 | NUR ---
SHIFT SUMMARY PT SLEPT MOST OF SHIFT WITH SEVERAL EPISODES OF YELLING OUT. PT REMAINS CONFUSED AND HAD SOME HALLUCINATIONS NOTED DURING THE NIGHT. PT HAD NO ACUTE ISSUES OR COMPLAINTS. PT CURRENTLY SLEEPING AND BREATHING EASY. CALL LIGHT IN REACH.
[2018-06-14 05:26] LABS: BASOPHILS ABSOLUTE AUTO 0.03 K/mm3 (0.00-0.23); BASOPHILS PERCENT AUTO 0 % (0-2); EOSINOPHILS ABSOLUTE AUTO 0.13 K/mm3 (0.00-0.68); EOSINOPHILS PERCENT AUTO 1 % (0-6); Hematocrit 34.3 % (33.0-51.0); Hemoglobin 10.6 g/dL (11.5-16.0); IMMATURE GRAN ABSOLUTE AUTO 0.08 K/mm3 (0.00-0.10); IMMATURE GRAN PERCENT AUTO 1 % (0-1); LYMPHOCYTES ABSOLUTE AUTO 4.16 K/mm3 (0.84-5.20); LYMPHOCYTES PERCENT AUTO 41 % (21-46); MONOCYTES PERCENT AUTO 13 % (4-13); Mean Corpuscular HGB 30.7 pg (26.0-34.0); Mean Corpuscular HGB Conc 30.9 g/dL (31.5-36.5); Mean Corpuscular Volume 99 fL (80-100); Mean Platelet Volume 9.3 fL (9.1-12.4); NEUTROPHILS ABSOLUTE AUTO 4.51 K/mm3 (1.96-9.15); NEUTROPHILS PERCENT AUTO 44 % (41-73); Platelet Count 227 K/mm3 (150-400); RDW Coefficient Variation 17.8 % (11.7-14.2); RDW Standard Deviation 65.3 fL (35.1-46.3); Red Blood Cell Count 3.45 M/mm3 (3.80-5.20); White Blood Cell Count 10.21 K/mm3 (4.00-11.30)
[2018-06-14 05:58] LABS: Albumin, Blood 2.1 g/dL (3.4-5.0); Albumin/Globulin Ratio 0.4 (0.8-1.8); Bilirubin, Total 1.2 mg/dL (0.1-1.0); Bun/Creatinine Ratio 8.6 (12.0-20.0); C-REACTIVE PROTEIN, EXT RANGE 8.59 mg/dL (0.000-0.300); Calcium, Blood 9.4 mg/dL (8.5-10.1); Creatinine, Blood 3.74 mg/dL (0.40-1.00); Globulin, Blood 5.5 g/dL (2.2-4.0); Potassium, Blood 3.7 mmol/L (3.5-5.5); Total Protein, Blood 7.6 g/dL (6.4-8.2)
[2018-06-14 09:49] LABS: Vancomycin, Random 19.1 ug/mL
--- NOTE | 2018-06-14 17:14 | NUR ---
SHIFT SUMMARY PT HAS BEEN SLEEPING A LOT OF THE SHIFT. PT HAD DIALYSIS THIS AM. MEDICATED FOR PAIN X1. STERISTRIPS TO RIGHT SHOULDER INTACT WITH NO REDNESS/DRAINAGE. PT COOPERATIVE WITH CARE BUT CAN GET IRRITABLE AT TIMES. NO ACUTE CHANGES AT THIS TIME. CALL LIGHT IN REACH. WILL CONTINUE TO MONITOR AND REPORT TO ONCOMING RN.
--- NOTE | 2018-06-15 03:47 | NUR ---
SHIFT SUMMARY NO APPARENT ACUTE CHANGES NOTED SO FAR THIS SHIFT. THE PT HAS BEEN AWAKE MOST OF THIS NIGHT YELLING FOR SOMEONE NAMED FELIZ. ATTEMPTED TO REDIRECT PT BUT UNSUCCESSFUL. PT DOES APPEAR TO BE SPEAKING TO SOMEONE OR SOMETHING THAT IS NOT IN ROOM. THE PT HAS USE HER CALL LIGHT APPROPRIATELY A COUPLE OF TIMES THIS NIGHT. THE PT HAS BEEN PLEASENT AND COOPERATIVE WITH CARE. THE PT DOES APPEAR TO BE SLEEPING AT THIS TIME BUT WAS AWAKE JUST A FEW MINUTES AGO. NO APPARENT SIGNS OF ACUTE DISTRESS. WILL CONTINUE TO MONITOR.
--- NOTE | 2018-06-15 17:42 | NUR ---
SHIFT SUMMARY PT HAS HAD NO ACUTE CHANGES THIS SHIFT, MEDICATED 1X FOR PAIN, NO OTHER COMPLAINTS OF ANY KIND. PT IS BEDRESTING AT THIS TIME, WILL CONT TO MONITOR UNTIL REPORT GIVEN TO KEITH RN.
--- NOTE | 2018-06-16 05:18 | NUR ---
SHIFT SUMMARY THE PT WAS PLEASENT AND COOPERATIVE WITH CARE. NO APPARENT SIGNS OF ACUTE DISTRESS. THE PT MEDICATED FOR PAIN X1 ONE SO FAR THIS SHIFT. THE PT UP MOST OF THE NIGHT BUT APPEARS TO BE SLEEPING COMFORTABLY AT THIS TIME. USES CALL LIGHT AT TIMES. FREQUENT VISUAL CHECKS DUE TO PT DOES NOT ALWAYS USE CALL LIGHT APPROPRIATELY. WILL CONTINUE TO MONITOR.
[2018-06-16 09:50] LABS: Hemoglobin 11.5 g/dL (11.5-16.0)
[2018-06-16 10:19] LABS: Albumin, Blood 2.2 g/dL (3.4-5.0); Anion Gap 10 mmol/L (6-16); Blood Urea Nitrogen 28 mg/dL (8-24); Bun/Creatinine Ratio 7.7 (12.0-20.0); CO2, Blood 28 mmol/L (21-32); Calcium, Blood 9.8 mg/dL (8.5-10.1); Chloride, Blood 96 mmol/L (98-108); Creatinine, Blood 3.65 mg/dL (0.40-1.00); Glomerular Filtration Rate 13 (60-); Glucose, Blood 93 mg/dL (70-99); Phosphorus, Blood 3.6 mg/dL (2.5-4.9); Potassium, Blood 3.9 mmol/L (3.5-5.5); Sodium, Blood 134 mmol/L (136-145)
[2018-06-16 13:41] LABS: Vancomycin, Random 14.7 ug/mL
--- NOTE | 2018-06-16 18:14 | NUR ---
SHIFT SUMMARY PT HAS HAD NO ACUTE CHANGES THIS SHIFT, MEDICATED 2X FOR PAIN, NO OTHER COMPLAINTS OF ANY KIND. PT IS BEDRESTING AT THIS TIME, WILL CONT TO MONITOR UNTIL REPORT GIVEN TO KEITH RN.
--- NOTE | 2018-06-17 03:43 | NUR ---
SHIFT SUMMARY THE PT WAS PLEASENT AND COOPERATIVE WITH CARE MOST OF THE NIGHT. THE PT DID ATTEMPT TO GET OUT OF BED AT ONE POINT BUT WERE ABLE TO REPOSITIONED PT SAFELY BACK INTO BED. THE PT DID APPEAR TO HAVE SOME HALLUCINATIONS WHILE TALKING TO SOMEONE WHO WASNT THERE BUT IT SEEMED THOUGH HER CONVERSATION WAS PLEASENT AND THE PT DID NOT PRESENT ANY FEAR. THE PT CURRENTLY APPEARS TO BE SLEEPING COMFORTABLY WITH NO APPARENT SIGNS OF ACUTE DISTRESS. FREQUENT VISUAL CHECKS THE PT DOES USE CALL LIGHT AT TIMES BUT DOES NOT ALWAYS USE CALL LIGHT APPROPRIATELY. WILL CONTINUE TO MONITOR.
--- NOTE | 2018-06-17 10:52 | NUR ---
DR. GUILLERMO SAID TO D/C DAR. NO OTHER NEW ORDERS AT THIS TIME.
--- NOTE | 2018-06-17 16:36 | NUR ---
SHIFT SUMMARY- PT AXO TO SELF AND PLACE. PT IRRITABLE. PT HAVING AUDITORY/VISUAL HALLUCINATIONS. PT REPORTS SHE WAS EATING PIZZA THIS AM AND EVERYDAY SOMEONE IS COMING IN AND STEALING HER PIZZA. PT C/O LOWER BACK PAIN THIS AM. MEDS GIVEN PER EMAR. PT/OT IN TO EVAL PT THIS AM. SHAHEEN JACKSON IN TO ASSESS PT THIS AFTERNOON. 2 ASSIST STAND PIVOT TRANSFER WITH GAIT BELT TO CHAIR. FISTULA L ARM. NO DIALYSIS THIS SHIFT. TURNS Q2H. RESP E/U ON RA. NO OTHER SIGNIFICANT CHANGES THIS SHIFT.
--- NOTE | 2018-06-18 06:21 | NUR ---
SHIFT SUMMARY: PT SLEEPS MOST OF SHIFT. COMBATIVE AND RESISTIVE TO PERSONAL CARE. PT DENIES PAIN OR DISCOMFORT OF ANY SORT. REPOSITIONED Q2H, ATTENDS CHANGED 1X; VERY LOW URINE OUTPUT. AUDITORY AND VISUAL HALLUCINATIONS REMAIN; PT IS SEEING AND TALKING TO PEOPLE IN RM THAT ARE NOT THERE. WILL CONT TO MONITOR AND PROVIDE CARE UNTIL PRESUMED BY ONCOMING RN.
[2018-06-18 13:21] LABS: Hemoglobin 12.1 g/dL (11.5-16.0)
[2018-06-18 13:35] LABS: Albumin, Blood 2.3 g/dL (3.4-5.0); Anion Gap 11 mmol/L (6-16); Blood Urea Nitrogen 29 mg/dL (8-24); Bun/Creatinine Ratio 7.7 (12.0-20.0); CO2, Blood 29 mmol/L (21-32); Calcium, Blood 9.9 mg/dL (8.5-10.1); Chloride, Blood 95 mmol/L (98-108); Creatinine, Blood 3.78 mg/dL (0.40-1.00); Glomerular Filtration Rate 12 (60-); Glucose, Blood 92 mg/dL (70-99); Phosphorus, Blood 4.6 mg/dL (2.5-4.9); Potassium, Blood 3.8 mmol/L (3.5-5.5); Sodium, Blood 135 mmol/L (136-145)
--- NOTE | 2018-06-18 19:08 | NUR ---
SHIFT SUMMARY- PT DENIES PAIN. RESP E/U ON RA. PT IRRITABLE. MEDS GIVEN PER EMAR. PT HAD DIALYSIS TODAY. TURNS Q2H. NO OTHER SIGNIFICANT CHANGES THIS SHIFT.
--- NOTE | 2018-06-19 06:32 | NUR ---
SHIFT SUMMARY: PT HAS BEEN PLEASANT TONIGHT, COOPERATIVE WITH CARE. AUDITORY AND VISUAL HALLUCINATIONS OCCURRING AT START OF SHIFT BUT PT HAS BEEN QUIETLY SLEEPING THRU THE NIGHT. 1 LARGE SOFT BM, 1 UNMEASURED VOID. PT CONTINENT TONIGHT AND CALLS FOR BEDPAN. NYSTATIN TO SKIN FOLDS AND DAVID AREA FOR REDNESS. WILL CONT TO MONITOR AND PROVIDE CARE UNTIL PRESUMED BY ONCOMING RN.
--- NOTE | 2018-06-19 18:26 | NUR ---
SHIFT SUMMARY PT AXO TO SELF ONLY. VSS. NO ACUTE CHANGES THIS SHIFT. PT MEDICATED FOR PAIN PER EMAR. PT HAD BED BATH THIS SHIFT. MEPILEX ON COCCY FOR PRESSURE ULCER, UNCHANGED. PT REFUSED TO LAY ON HER SIDES. HIPS FLOATED TO RELIEVE SOME PRESSURE. PT UP TO RECLINER ONCE THIS SHIFT, PT TOLERATED POORLY, CALLING OUT FOR THE NURSE THE ENTIRE TIME. STERI STRIPS ON R. SHOULDER FELL OFF WELL. BED IN LOW POSITION, CALL LIGHT WITHIN REACH THOUGH PT DOES NOT USE. PT CHECKED AND TURNED Q2 AND PRN.
--- NOTE | 2018-06-20 06:31 | NUR ---
SHIFT SUMMARY: NO ACUTE CHANGES THIS SHIFT. PT HAS BEEN QUIET AND PLEASANT, COOPERATIVE c CARE. ALERT TO SELF ONLY, SPEECH IS NONSENSIBLE AT TIMES BUT PT IS ABLE TO ANSWER Q'S AND FOLLOW DIRECTIONS APPROP. Q2H TURNS ATTEMPTED BUT PT IS RESISTFUL. WILL CONT TO MONITOR AND PROVIDE CARE UNTIL PRESUMED BY ONCOMING RN.
--- NOTE | 2018-06-20 18:15 | NUR ---
SHIFT SUMMARY PT AXO TO SELF AND FOLLOWING DIRECTIONS. PLEASANT AND COOPERATIVE WITH CARE THOUGH PAINFUL WITH REPOSITIONING AND PAINFUL ANYTIME HER LEGS ARE TOUCHED. PT MEDICATED FOR PAIN PER EMAR. MEPILEX ON COCCYX AND BARRIER CREME APPLED TO RA ON GROIN. VSS. NO ACUTE CHANGES THIS SHIFT. BED IN LOW POSITION, CALL LIGHT WITHIN REACH, BED ALARM ON. PT UP TO CHAIR FOR BREAKFAST.
--- NOTE | 2018-06-21 07:41 | NUR ---
SHIFT SUMMARY: NO ACUTE CHANGES TO REPORT TONIGHT. PT TREATED FOR PAIN 1X c 2 TABS OF NORCO. PT IS NOT HAVING VISUAL/AUDITORY HALLUCINATIONS TONIGHT. PT IS CALM AND COOPERATIVE TONIGHT. MEDS CRUSHED IN DILEEP PUDDING. Q2H TURNS PERFORMED. WILL CONT TO MONITOR AND PROVIDE CARE UNTIL PRESUMED BY ONCOMING RN.
--- NOTE | 2018-06-21 10:12 | NUR ---
PT IN DIALYSIS. TAKEN TO DEPT VIA BED, ESCORTED BY 2 RN'S.
[2018-06-21 10:22] LABS: Hematocrit 38.3 % (33.0-51.0)
[2018-06-21 10:26] LABS: Albumin, Blood 2.4 g/dL (3.4-5.0); Anion Gap 12 mmol/L (6-16); Blood Urea Nitrogen 40 mg/dL (8-24); Bun/Creatinine Ratio 8.1 (12.0-20.0); CO2, Blood 30 mmol/L (21-32); Calcium, Blood 10.1 mg/dL (8.5-10.1); Chloride, Blood 92 mmol/L (98-108); Creatinine, Blood 4.91 mg/dL (0.40-1.00); Glomerular Filtration Rate 9 (60-); Glucose, Blood 127 mg/dL (70-99); Phosphorus, Blood 3.8 mg/dL (2.5-4.9); Potassium, Blood 3.8 mmol/L (3.5-5.5); Sodium, Blood 134 mmol/L (136-145)
--- NOTE | 2018-06-21 20:50 | NUR ---
SHIFT SUMMARY: PT TO DIALYSIS, STRANDING MACHINE OPERATOR REPORTS 1L REMOVED AND TOLERATED WELL. PT IS IRRITABLE AT TIMES, REORIENTS EASILY. MEDICATED FOR PAIN WITH NORCO. PT REPORTS GOOD RELIEF. SHE REMAINS CONT/INCONT, ATTENDS IN PLACE. MEDS CRUSHED IN APPLESAUCE. NO ACUTE CHANGES NOTED.
--- NOTE | 2018-06-22 06:48 | NUR ---
Rn summary: Patient is oriented to self. Sometimes she is aware of situation. Patient was medicated at the beginning of shift with Lortab 2 tabs for shoulder pain. Patient takes meds in chocolate pudding. Pt can be irritable at times. Pt sleeps and lies with her head down and to the left. Patient had dialysis yesterday. She has talked a lot to people who are not there. Pt is irritable with any care. repositioned as able. Rested 1/2 of shift. bed alarm on for safety.
--- NOTE | 2018-06-22 18:39 | NUR ---
SUMM- PT ALRET TO SELF, TURNED Q 2, NYSTATIN TO GROIN. TOLERATED SIPS OF LIQ APPROX 150ML ALL DAY. REFUSED ALL MEALS. NO VOID TODAY. NO BM TODAY. MEDICATED FOR PAIN ONCE FOR ALL OVER PAIN AND APPARENT RELEIF PT FELL ASLEEP. STATED COMFORT THE REST OF THE SHIFT AND DIDN'T WANT ADDIDTIONAL PAIN MEDS.
--- NOTE | 2018-06-23 07:34 | NUR ---
06/23/18 0600 PT CONFUSED AND BECOMES ANGRY WHEN GIVEN NURSING CARE AND TURNED. RUDE AT TIMES. VITLS STABLE.
[2018-06-23 10:12] LABS: Hemoglobin 12.3 g/dL (11.5-16.0)
[2018-06-23 10:37] LABS: Albumin, Blood 2.3 g/dL (3.4-5.0); Anion Gap 10 mmol/L (6-16); Blood Urea Nitrogen 34 mg/dL (8-24); Bun/Creatinine Ratio 7.8 (12.0-20.0); CO2, Blood 30 mmol/L (21-32); Calcium, Blood 9.7 mg/dL (8.5-10.1); Chloride, Blood 95 mmol/L (98-108); Creatinine, Blood 4.38 mg/dL (0.40-1.00); Glomerular Filtration Rate 11 (60-); Glucose, Blood 89 mg/dL (70-99); Phosphorus, Blood 4.3 mg/dL (2.5-4.9); Potassium, Blood 3.9 mmol/L (3.5-5.5); Sodium, Blood 135 mmol/L (136-145)
--- NOTE | 2018-06-23 18:20 | NUR ---
SHIFT SUMMARY PT HAS BEEN VERY SLEEPY THIS SHIFT. THIS RN UNABLE TO ADMINISTER MORNING MEDICATIONS DUE TO ASPIRATION RISK FROM BEING TOO SLEEPY. PT WOKE UP THIS AFTERNOON BRIEFLY WHEN STAFF WAS TURNING/CHANGING HER ATTENDS. PT BECAME ANGRY AND DID NOT WANT STAFF TOUCHING HER BUT FELL BACK TO SLEEP ONCE STAFF FINISHED WITH TURNING/CHANGING. PT HAS DECLINED ALL OF HER MEALS THIS SHIFT. PT HAD DIALYSIS TODAY. NO ACUTE DISTRESS AT THIS TIME. WILL CONTINUE TO MONITOR AND REPORT TO ONCOMING RN. CALL LIGHT IN REACH.
--- NOTE | 2018-06-24 05:57 | NUR ---
Rn summary: Patient is very sleepy at the beginning of shift. Pt refuing any oral meds. Pt cries out when moved or repositioned. Lungs were diminished. Pt has a sl larger than quarter size skin breakdown on coccyx, cleaned and new mepilex applied. After 0200 pt is much more alert, asking questions, wants to know where she is and what is going on. Pt on bedpan and had lg brown formed stool. Pt drinking water. Call light in reach, pt also calls out with requests.
--- NOTE | 2018-06-24 17:36 | NUR ---
SHIFT SUMMARY THE PATIENT IS A&O TO SELF AND SOME SURROUNDINGS, LUNG SOUNDS WERE CLEAR, BUT DIM AT THE BASES, AND THE PATIENT'S VITALS WERE WNL. THE PATIENT HAS A PRESSURE SORE ON HER COCCYX AREA WITH A MEPELEX TO COVER IT. THE PATIENT HAD NOT HAD A PICTURE TAKEN OF THAT AREA, ONE WAS TAKEN TODAY PER REQUEST. THE PATIENT IS RESTING AT THIS TIME WILL CONTINUE TO MONITOR
--- NOTE | 2018-06-25 04:46 | NUR ---
SHIFT SUMMARY PT CONFUSED THIS EVENING. ALERT THROUGH MUCH OF THE SHIFT BUT UNAWARE OF WHERE PT IS OR WHAT IS GOING ON. YELLS OUT AT TIMES REQUESTING TO "GET OUT OF CHAIR AND INTO BED" WHEN PT IS ALREADY IN BED. REMAINED IN BED THROUGHOUT THE NIGHT. REPOSITIONED PT FREQENTLY. PRESSURE ULCER ON COCCYX. MEPILEX IN PLACE, CLEAN/DRY/INTACT. DAVID AREA RED, NYSTATIN POWDER APPLIED. SIPPY CUP USED AND PT EFFECTIVELY USED INDEPENDENTLY. OFFERED THROUGHOUT THE SHIFT. PT DENIED PAIN WHEN ASKED AND ONLY REPORTED PAIN WHEN TURNING. PT'S HEAD TILTED DOWN TO THE LEFT AT BASELINE. FISTULA TO LFA. NO ACUTE CHANGES. VSS. WILL CONTINUE TO MONITOR AND REPORT TO DAY RN.
--- NOTE | 2018-06-25 18:29 | NUR ---
SHIFT SUMMARY PT HAS HAD NO ACUTE CHANGES THIS SHIFT, MEDICATED 1X FOR PAIN PRIOR TO DIALYSIS, NO OTHER COMPLAINTS OF ANY KIND. PT IS BEDRESTING AT THIS TIME, WILL CONT TO MONITOR UNTIL REPORT GIVEN TO NOC RN.
--- NOTE | 2018-06-26 04:34 | NUR ---
SHIFT SUMMARY RESPONDS TO VERBAL STIMULI. WILL ANSWER QUESTIONS APPROPRIATELY WITH 2-3 WORD SENTENCES. DOES NOT LIKE TO BE RE-POSITIONED. NOTICED LOW O2 SATURATION; PLACED ON 2L VIA NC THIS AM. O2 SATURATION CURRENTLY @ 97%. RESPIRATIONS EVEN WITH EQUAL RISE/FALL. VSS/AFEBRILE. NO ACUTE CHANGES OVERNIGHT. BED IN LOWEST POSITION. CALL LIGHT AND BELONGINGS WITHIN REACH. WCTM. REPORT TO ONCOMING RN.
[2018-06-26 05:37] LABS: BASOPHILS ABSOLUTE AUTO 0.06 K/mm3 (0.00-0.23); BASOPHILS PERCENT AUTO 1 % (0-2); EOSINOPHILS ABSOLUTE AUTO 0.16 K/mm3 (0.00-0.68); EOSINOPHILS PERCENT AUTO 2 % (0-6); Hemoglobin 12.5 g/dL (11.5-16.0); IMMATURE GRAN ABSOLUTE AUTO 0.07 K/mm3 (0.00-0.10); IMMATURE GRAN PERCENT AUTO 1 % (0-1); LYMPHOCYTES ABSOLUTE AUTO 5.16 K/mm3 (0.84-5.20); LYMPHOCYTES PERCENT AUTO 54 % (21-46); MONOCYTES ABSOLUTE AUTO 1.18 K/mm3 (0.16-1.47); MONOCYTES PERCENT AUTO 12 % (4-13); Mean Corpuscular HGB 30.3 pg (26.0-34.0); Mean Corpuscular HGB Conc 29.8 g/dL (31.5-36.5); Mean Platelet Volume 9.8 fL (9.1-12.4); NEUTROPHILS PERCENT AUTO 31 % (41-73); Platelet Count 228 K/mm3 (150-400); RDW Coefficient Variation 18.1 % (11.7-14.2); RDW Standard Deviation 68.2 fL (35.1-46.3); Red Blood Cell Count 4.13 M/mm3 (3.80-5.20); White Blood Cell Count 9.63 K/mm3 (4.00-11.30)
[2018-06-26 05:40] LABS: Mean Corpuscular Volume 102 fL (80-100)
[2018-06-26 05:57] LABS: C-REACTIVE PROTEIN, EXT RANGE 6.05 mg/dL (0.000-0.300); Magnesium, Blood 2.2 mg/dL (1.6-2.4)
[2018-06-26 05:59] LABS: Albumin, Blood 2.4 g/dL (3.4-5.0); Albumin/Globulin Ratio 0.4 (0.8-1.8); Bun/Creatinine Ratio 7.2 (12.0-20.0); Calcium, Blood 9.9 mg/dL (8.5-10.1); Creatinine, Blood 2.78 mg/dL (0.40-1.00); Globulin, Blood 5.9 g/dL (2.2-4.0); Phosphorus, Blood 3.4 mg/dL (2.5-4.9); Potassium, Blood 3.7 mmol/L (3.5-5.5); Total Protein, Blood 8.3 g/dL (6.4-8.2)
[2018-06-26 06:50] LABS: BASOPHILS ABSOLUTE MAN 0.09 K/mm3 (0.00-0.23); BASOPHILS PERCENT MAN 1 % (0-2); EOSINOPHILS ABSOLUTE MAN 0.09 K/mm3 (0.00-0.68); EOSINOPHILS PERCENT MAN 1 % (0-6); LYMPHOCYTES ABSOLUTE MAN 6.06 K/mm3 (0.84-5.20); LYMPHOCYTES PERCENT MAN 63 % (21-46); MONOCYTES ABSOLUTE MAN 0.96 K/mm3 (0.16-1.47); MONOCYTES PERCENT MAN 10 % (4-13); SEG NEUTROPHILS PERCENT MAN 25 % (41-73); TOTAL CELLS COUNTED 100
--- NOTE | 2018-06-26 16:58 | NUR ---
PT AO WITH CONFUSION. PT ON BEDREST AND NEEDS TURNED EVERY COUPLE HOURS. PT DOES TRY TO REFUSE SOME OF THE TURNS. PT TAKES HER MEDICATION CRUSHED WITH APPLESAUCE. WILL CONITINUE TO MONITOR.
--- NOTE | 2018-06-27 04:22 | NUR ---
SHIFT SUMMARY RESPONDS TO VERBAL STIMULI. ANSWERS SOME QUESTIONS APPROPRIATELY. HOWEVER, SOME HALLUCINATIONS NOTED. STATING SHE IS ON HER WAY TO [place], ETC. CALLING OUT FOR HELP DURING REPOSITIONING/ATTENDS CHANGE. REMAINS ON 2L OF O2 VIA NC WITH SATURATION >90%. RESPIRATIONS EVEN WITH EQUAL RISE/FALL. MEPILEX CHANGED AND WOUND CLEANSED THIS SHIFT. CALAZIME CREAM TO GROIN/GLUTEAL FOLDS. BED REMAINS IN LOWEST POSITION; ALARM ON. CALL LIGHT WITHIN REACH. WCTM. REPORT TO ONCOMING RN.
[2018-06-27 07:19] LABS: Albumin, Blood 2.5 g/dL (3.4-5.0); Albumin/Globulin Ratio 0.4 (0.8-1.8); Bilirubin, Total 1.1 mg/dL (0.1-1.0); Creatinine, Blood 4.14 mg/dL (0.40-1.00); Potassium, Blood 3.8 mmol/L (3.5-5.5); Total Protein, Blood 8.5 g/dL (6.4-8.2)
[2018-06-27 07:20] LABS: BASOPHILS ABSOLUTE AUTO 0.05 K/mm3 (0.00-0.23); BASOPHILS PERCENT AUTO 1 % (0-2); EOSINOPHILS ABSOLUTE AUTO 0.16 K/mm3 (0.00-0.68); EOSINOPHILS PERCENT AUTO 2 % (0-6); Hematocrit 41.7 % (33.0-51.0); Hemoglobin 12.7 g/dL (11.5-16.0); IMMATURE GRAN ABSOLUTE AUTO 0.08 K/mm3 (0.00-0.10); IMMATURE GRAN PERCENT AUTO 1 % (0-1); LYMPHOCYTES ABSOLUTE AUTO 4.69 K/mm3 (0.84-5.20); LYMPHOCYTES PERCENT AUTO 45 % (21-46); MONOCYTES ABSOLUTE AUTO 1.23 K/mm3 (0.16-1.47); MONOCYTES PERCENT AUTO 12 % (4-13); Mean Corpuscular HGB 30.6 pg (26.0-34.0); Mean Corpuscular HGB Conc 30.5 g/dL (31.5-36.5); Mean Corpuscular Volume 101 fL (80-100); Mean Platelet Volume 9.8 fL (9.1-12.4); NEUTROPHILS ABSOLUTE AUTO 4.22 K/mm3 (1.96-9.15); NEUTROPHILS PERCENT AUTO 40 % (41-73); Platelet Count 236 K/mm3 (150-400); RDW Coefficient Variation 17.7 % (11.7-14.2); RDW Standard Deviation 65.8 fL (35.1-46.3); Red Blood Cell Count 4.15 M/mm3 (3.80-5.20); White Blood Cell Count 10.43 K/mm3 (4.00-11.30)
--- NOTE | 2018-06-27 16:58 | NUR ---
PT AOX2 WITH A LOT OF CONFUSION. PT HAD MORE TROUBLE THIS AM SWALLOWING PILLS. PT TURNED Q2 HRS HAS REFUSED A COUPLE TIMES.PT SLEEPING MOST OF THE DAY. WHEN AWAKE SHE WILL SPEND MOST OF THE TIME TALKING TO HERSELF. MEPAPLEX OVER COCCYX AREA INTACT. WILL CONTINUE TO MONITOR.
--- NOTE | 2018-06-28 04:12 | NUR ---
73 Y/O FEMALE RESTED COMFORTABLY IN BED ALL NIGHT. PT SCHEDULED FOR DIALSIS ON JUNE 28. PTS HAD GENERALIZED PAIN EARLIER IN SHIF T AND GOT PAIN RELIEF WITH NORCO 5/325MG PO GIVEN. PTS BED ALARM ON, BED LOW POSITION, CALL LIGHT AT SIDE.
[2018-06-28 05:03] LABS: Hemoglobin 12.8 g/dL (11.5-16.0)
[2018-06-28 05:21] LABS: Albumin, Blood 2.4 g/dL (3.4-5.0); Anion Gap 9 mmol/L (6-16); Blood Urea Nitrogen 39 mg/dL (8-24); Bun/Creatinine Ratio 7.7 (12.0-20.0); CO2, Blood 29 mmol/L (21-32); Calcium, Blood 10.1 mg/dL (8.5-10.1); Chloride, Blood 100 mmol/L (98-108); Creatinine, Blood 5.04 mg/dL (0.40-1.00); Glomerular Filtration Rate 9 (60-); Glucose, Blood 98 mg/dL (70-99); Magnesium, Blood 2.4 mg/dL (1.6-2.4); Phosphorus, Blood 4.4 mg/dL (2.5-4.9); Sodium, Blood 138 mmol/L (136-145)
--- NOTE | 2018-06-28 17:49 | NUR ---
PT AOX3 MUCH MORE ALERT TODAY. PT WAS IN DIALYSIS FOR THE EARLIER PART OF THE DAY. PT HAS BEEN SLEEPING A LOT. PT STILL TALKING TO HERSELF, BUT HAS TALKED TO THIS SPORTS ANNOUNCER MORE TODAY. BEDREST AND TURNED Q2 WILL CONTINUE TO MONITOR.
--- NOTE | 2018-06-29 04:32 | NUR ---
73 Y/O FEMALE RESTED QUIETLY ALL EVENING, TURNED EVERY 2 HOURS BY STAFF. PTS BED ALARM IS ON, BED LOW POSITON, CALL LIGHT AT SIDE. PTS DENIES PAIN OR NAUSEA.
[2018-06-29 04:49] LABS: Hematocrit 43.3 % (33.0-51.0); Hemoglobin 12.9 g/dL (11.5-16.0)
[2018-06-29 05:06] LABS: Albumin, Blood 2.5 g/dL (3.4-5.0); Anion Gap 9 mmol/L (6-16); Blood Urea Nitrogen 20 mg/dL (8-24); Bun/Creatinine Ratio 6.6 (12.0-20.0); CO2, Blood 30 mmol/L (21-32); Chloride, Blood 104 mmol/L (98-108); Creatinine, Blood 3.05 mg/dL (0.40-1.00); Glomerular Filtration Rate 16 (60-); Glucose, Blood 90 mg/dL (70-99); Magnesium, Blood 2.3 mg/dL (1.6-2.4); Phosphorus, Blood 3.2 mg/dL (2.5-4.9); Potassium, Blood 3.7 mmol/L (3.5-5.5); Sodium, Blood 143 mmol/L (136-145)
--- NOTE | 2018-06-29 17:41 | NUR ---
SHIFT SUMMARY PATIENT A&O X1. BEDREST. Q 2 REPOSITION. NO DIALYSIS TODAY. MEDICATED X1 FOR RIGHT SHOULDER PAIN. PATIENT RESTED FOR MOST OF THE SHIFT. DENIES ANY SOB. NO ACUTE CHANGES. RN WILL CONTINUE TO MONITOR.
--- NOTE | 2018-06-30 03:58 | NUR ---
73 Y/O FEMALE RESTED COMFORTABLY ALL NIGHT, PT ABLE TO FOLLOW VERY SIMPLE VERBAL COMMANDS, REPOSITIONED EVERY 2 HOURS BY STAFF. BED ALARM INTACT, BED LOW POSITION, CALL LIGHT AT SIDE.
[2018-06-30 05:11] LABS: Hematocrit 43.5 % (33.0-51.0); Hemoglobin 12.9 g/dL (11.5-16.0)
[2018-06-30 05:44] LABS: Magnesium, Blood 2.2 mg/dL (1.6-2.4)
[2018-06-30 05:45] LABS: Albumin, Blood 2.4 g/dL (3.4-5.0); Anion Gap 11 mmol/L (6-16); Blood Urea Nitrogen 30 mg/dL (8-24); Bun/Creatinine Ratio 7.3 (12.0-20.0); CO2, Blood 28 mmol/L (21-32); Calcium, Blood 10.2 mg/dL (8.5-10.1); Chloride, Blood 102 mmol/L (98-108); Creatinine, Blood 4.11 mg/dL (0.40-1.00); Glomerular Filtration Rate 11 (60-); Glucose, Blood 86 mg/dL (70-99); Phosphorus, Blood 4.1 mg/dL (2.5-4.9); Potassium, Blood 3.8 mmol/L (3.5-5.5); Sodium, Blood 141 mmol/L (136-145)
--- NOTE | 2018-06-30 16:01 | NUR ---
SHIFT SUMMARY PATIENT A&O X1. Q 2 HOUR REPOSITION. DENIES ANY PAIN OR SOB THIS SHIFT. PATIENT HAD DIALYSIS TODAY. RESTED THROUGHOUT THE SHIFT. NO ACUTE CHANGES. BED ALARM ON, CALL LIGHT WITHIN REACH. RN WILL CONTINUE TO MONITOR.
--- NOTE | 2018-07-01 03:55 | NUR ---
SHIFT SUMMARY NO ACUTE CHANGES TO PRESENT THIS SHIFT. PT AWAKE AT START OF SHIFT. PT REPOSITIONED OFF BUTTOCKS WITH BLE'S ELEVATED ON PILLOWS. PT DIFFICULT TO UNDERSTAND; MUMBLES ALOT. HX OF DEMENTIA. VERY WEAK AND DECONDITIONED. HX OF ESRD RECEIVING DIALYSIS YESTERDAY, ANEMIA, A-FIB, AND CAD. BLE'S DISCOLORED AND DRY. BUE'S WITH SCATTERED BRUISING. SKIN TO BACK AND BUTTOCKS AREA PEELING WITH MEPILEX TO COCCYX. LIDOCAINE PATCH REMOVED FROM R SHOULDER, PT REPORTING ARTHRITIS PAIN AND SHOULDER REPLACEMENT. INCONTINENT OF URINE X1 ONLY THIS SHIFT. IN CONTACT ISOLATION FOR VRE AND MRSA. REPORTED NO BM YESTERDAY; BOWEL CARE GIVEN. PT WAITING FOR PLACEMENT. PT APPEARED TO REST QUIETLY THRU OUT THE NIGHT. NO S/SX OF DISTRESS NOTED OR REPORTED. BED ALARM ON FOR SAFETY. CALL LT IN REACH.
[2018-07-01 04:47] LABS: Hematocrit 43.5 % (33.0-51.0); Hemoglobin 13.4 g/dL (11.5-16.0)
[2018-07-01 05:02] LABS: Albumin, Blood 2.4 g/dL (3.4-5.0); Anion Gap 11 mmol/L (6-16); Blood Urea Nitrogen 22 mg/dL (8-24); Bun/Creatinine Ratio 7.6 (12.0-20.0); CO2, Blood 29 mmol/L (21-32); Chloride, Blood 98 mmol/L (98-108); Creatinine, Blood 2.88 mg/dL (0.40-1.00); Glomerular Filtration Rate 17 (60-); Glucose, Blood 94 mg/dL (70-99); Magnesium, Blood 2.1 mg/dL (1.6-2.4); Phosphorus, Blood 2.7 mg/dL (2.5-4.9); Potassium, Blood 3.8 mmol/L (3.5-5.5); Sodium, Blood 138 mmol/L (136-145)
--- NOTE | 2018-07-01 18:38 | NUR ---
NO CHANGES TO PATIENT THIS SHIFT. SHE REMAINS CONFUSED BUT COMPLIANT WITH CARES AND STAFF. NO COMPLAINTS TODAY.
--- NOTE | 2018-07-02 05:03 | NUR ---
Shift summary: Pt on contact isolation secondary to vre. Pt slept most of shift. Pt turned q 2 hours during night. Does not like it. Head contracted to the left. Pt taking meds crushed in applesauce without problems. Pt refused am labs this am. Pt awaiting placement.
[2018-07-02 09:58] LABS: Hematocrit 42.4 % (33.0-51.0); Hemoglobin 13.1 g/dL (11.5-16.0)
[2018-07-02 10:23] LABS: Albumin, Blood 2.5 g/dL (3.4-5.0); Anion Gap 9 mmol/L (6-16); Blood Urea Nitrogen 38 mg/dL (8-24); CO2, Blood 31 mmol/L (21-32); Calcium, Blood 10.6 mg/dL (8.5-10.1); Chloride, Blood 98 mmol/L (98-108); Creatinine, Blood 4.21 mg/dL (0.40-1.00); Glomerular Filtration Rate 11 (60-); Glucose, Blood 129 mg/dL (70-99); Magnesium, Blood 2.2 mg/dL (1.6-2.4); Phosphorus, Blood 3.4 mg/dL (2.5-4.9); Potassium, Blood 3.8 mmol/L (3.5-5.5); Sodium, Blood 138 mmol/L (136-145)
--- NOTE | 2018-07-03 05:18 | NUR ---
Pt remains about the same overnight. Pt sleeping most of shift. pt turned every two to three hours and does not like it. Pt allowed lab to draw labs this am. Pt on contact isolation. VSS.
[2018-07-03 05:28] LABS: Hematocrit 46.6 % (33.0-51.0); Hemoglobin 14.2 g/dL (11.5-16.0)
[2018-07-03 06:23] LABS: Albumin, Blood 2.4 g/dL (3.4-5.0); Anion Gap 9 mmol/L (6-16); Blood Urea Nitrogen 27 mg/dL (8-24); Bun/Creatinine Ratio 8.7 (12.0-20.0); CO2, Blood 29 mmol/L (21-32); Calcium, Blood 10.2 mg/dL (8.5-10.1); Chloride, Blood 97 mmol/L (98-108); Glomerular Filtration Rate 16 (60-); Glucose, Blood 117 mg/dL (70-99); Magnesium, Blood 2.2 mg/dL (1.6-2.4); Phosphorus, Blood 2.5 mg/dL (2.5-4.9); Potassium, Blood 3.8 mmol/L (3.5-5.5); Sodium, Blood 135 mmol/L (136-145)
--- NOTE | 2018-07-03 18:43 | NUR ---
SHIFT SUMMARY PT A&OX1 TO SELF, FOLLOWS DIRECTIONS. CONFUSED. DOSE NOT USE CALL LIGHT. CALLS OUT FOR ASSISTANTS. PT RESTING IN BED DURING SHIFT, REPOSITIONED FOR COMFORT. PT REPORTS PAIN IN R SHOULDER AND GENERALZED "EVERYWHERE" PAIN, MEDICATED WITH SCHEDULED LIDO PATCH AND NORCOX1. PT SOB WITH EXERTION, >90% ON RA. PT DENIES N/V DURING SHIFT. COCCYX WOUND CLEANED AND DRESSING PLACED. BLADDER SCAN 24 CC. VSS. NO OTHER ACUTE CHANGES NOTED DURING SHIFT. WILL CONTINUE TO MONITOR UNTIL REPORT GIVEN TO ONCOMING RN.
--- NOTE | 2018-07-04 03:10 | NUR ---
JAMEY MABRY CALLED ME TO PT ROOM AT ABOUT 2253 REPORTING THAT PT IS DIAPHORETIC. UPON ASSESSMENT PT AWAKES TO VOICE, DIFTS BACK TO SLEEP QUICKLY. PT VSS, CBG CHECK WNL AT 160. PT DENIED CHEST PAIN OR SOB. SAYS " I FEEL FINE" WHEN ASKED HOW SHE IS. HEART BEAT IS IRRIGULAR AT BASELINE. PT IS NOT COLD OR PALE. WILL CTM PT STATUS AND MAKE VALIDATION CONSULTANT BARRETT AWARE OF THE DIAPHORESIS.
--- NOTE | 2018-07-04 05:29 | NUR ---
SUMMARY: NO ACUTE CHANGE THIS SHIFT. PT ALERT THIS AM, CONTINUES TO BE CONFUSED. PT TURNED Q2 AND CHANGED PRN. VSS. NO SAFETY CONCERNS THIS AM. WILL CTM AND REPORT TO DAY RN.
--- NOTE | 2018-07-04 19:56 | NUR ---
SHIFT SUMMARY PT A&O TO SELF. CONFUSED, CALLING OUT FOR HELP AND FOR HER MOM AND DAD. PT 2 PERSON ASSIST WITH REPOSITIONING IN BED. PT DENIES PAIN T/O, LIDO PATCH TO RIGHT SHOULDER PER ORDERS. PT SOB WITH EXERTION, >92% ON RA, BREATHING EVEN AND UNLABORED. PT DENIES NAUSEA DURING SHIFT. SYSTOLIC BP, LOW THIS AM, DR GUILLERMO NOTIFIED, HELD CARDIZEM AND LOPRESSOR. OTHER VSS. NO OTHER ACUTE CHANGES NOTED, AWAITING PLACEMENT. REPORT GIVEN TO ONCOMING RN.
--- NOTE | 2018-07-05 05:57 | NUR ---
SUMMARY: PT REMAINS ORIENTED TO SELF ONLY AND CALLS INTO HALLS W/CONFUSED SPEECH. SHE IS ABLE TO SPECIFY NEEDS BUT DOESN'T USE CALL LIGHT. ATTENDS CHANGED PRN FOR INCONTINENCE OF SMALL VOID AND LOOSE BM, COLACE HELD. TURN SCHEDULE MAINTAINED AND PILLOWS PLACED FOR ADDITIONAL SBD PREVENTION. PT HAS EXCORIATION TO BUTTOCKS AND DAVID AREA W/MEPILEX TO STAGE 2 COCCYX SORE. CREAM APPLIED ELSEWHERE. PT ALSO HAS DIFFUSE APPEARING RASH TO BACK AND DRY DISCOLORED BLE'S. THRILLS/BRUITS INTACT TO L.ARM FISTULA, POSSIBLE DIALYSIS TODAY. PILLS TOLERATED CRUSHED IN APPLESAUCE. LIDOCAINE PATCH REMOVED FROM SHOULDER. PT DENIED NEEDING PRN PAIN MEDS. NO COMPLAINTS/ACUTE CHANGES. HELD METOPROLOL PER TRENDING SBP 100'S BUT VSS/AFEBRILE. WILL REPORT TO DAY RN.
--- NOTE | 2018-07-05 15:22 | NUR ---
NOTIFIED DR IYER OF POSITIVE CULTURES. NO NEW ORDERS AT THIS TIME
--- NOTE | 2018-07-05 21:16 | NUR ---
SHIFT SUMMARY PT A&O TO SELF, CONFUSED AND CALLS OUT FOR ASSISTANTS. DOSE NOT USE CALL LIGHT. PT REPORTS BACK PAIN, MEDICATED X1 WITH NORCO AND LIDO PATCH APPLIED TO RIGHT SHOULDER. PT REPOSITIONS FOR COMFORT T/O SHIFT. PT DENIES SOB AND N/V DURING SHIFT. PT HAS DECREASED APPETITE TODAY. PT TO DIALYSIS THIS AM. VSS. NO OTHER ACUTE CHANGES NOTED DURING SHIFT. PENDING PLACEMENT AND SAFE DISCHARGE PLAN. REPORT GIVEN TO ONCOMING RN.
--- NOTE | 2018-07-06 07:12 | NUR ---
SUMMARY: ORIENTED TO SELF ONLY AND OTHERWISE MOSTELY CONFUSED. SHE IS ABLE TO SPECIFY NEEDS AND CALLS INTO HALLS AT TIMES. TURN SCHEDULE MAINTAINED D/T DECONDITIONING AND LIFT OR HEAVY 2 ASSIST PIVOT TO CHAIR. MEPILEX REMAINS C/D/I TO COCCYX WOUND. SEE PHOTOS FOR DETAILS. PT HAD DIALYSIS YESTERDAY W/ OLIGURIAN AND ATTENDS CHANGES PRN. THRILLS AND BRUITS INTACT TO L.ARM FISTULA. NORCO WAS PROVIDED PRN FOR TOLERABLE CONTROL OF BACK PAIN. MEDS TOLERATED CRUSHED IN APPLESAUCE. NO ACUTE CHANGES, VSS/AFEBRILE. REPORT PROVIDED TO DAY RN.
--- NOTE | 2018-07-06 18:57 | NUR ---
SHIFT SUMMARY PT REPOSITIONED IN BED FOR COMFORT. ASSISTED WITH EATING MEALS. DENIED PAIN TIL END OF DAY. DOZING ON AND OFF WHEN LEFT ALONE. CALLING OUT OCCASIONALLY BUT DOESN'T ALWAYS REMEMBER WHY SHE IS CALLING OUT. NO DIALYSIS TODAY.
--- NOTE | 2018-07-07 01:24 | NUR ---
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 she is alert and confused. Calls out at times and presses call morales every few minutes. Speech nonsensical. Dysphagia precautions uses sippy cup and mech soft diet. meds crushed had pain med at [facility] for gen pain with helpful effect. Has lt ue av fistula with thrill and bruit present. unable to move self in bed, placement pending, needs assist with all ADLS and mobility toileting. Incontinent of bowel and bladder, has skin issues with dcub present sacral and skin fold treatments continue. on eggcrate mattress to prevent further breakdown. reoriented frequently.
--- NOTE | 2018-07-07 17:39 | NUR ---
SUMMARY PT AWAKE IN BED, PT CONFUSED, RESISTANT TO SOME CARE, VERBALLY ABUSIVE TOWARDS STAFF AT TIMES, PT DID HAVE DIALYSIS TODAY, DIANA WELL, PT HAS DENIED ANY PAIN TODAY, PILLS GIVEN WHOLE ONE AT A TIME IN APPLESAUCE, OPEN AREA TO THE COCCYX WITH SMALL AMOUNT OF PURULENT DRAINANGE, QUARTER SIZED AREA, EDGES RED, NO FURTHER SIGNS OF INFECTION, COVERED WITH FOAM DRESSING, VSS, NO ACUTE CHANGES, WILL CONT TO MONITOR
--- NOTE | 2018-07-08 07:25 | NUR ---
SHIFT SUMMARY PT SLEPT WELL T/O NIGHT. AOX1, FOLLOWS DIRECTIONS, ABLE TO STATE YEAR & THAT SHE IS IN [place], BUT UNAWARE WHERE SHE IS OR WHY & FULL DATE. CALLS OUT & IS FOUND TALKING TO SELF IN ROOM FREQUENTLY. VSS. DENIES SOB OR N/V. REPORTS PAIN IN BILATERAL KNEES THIS AM, WENT TO MEDICATED PER ORDERS ROUGHLY 10 MINUTES AFTER, THAN PT DENIES NEED FOR MEDICATION & STATES SHE IS NO LONGER IN PAIN. TURNED & REPOSITIONED PT PRN, MEPILEX CHANGED ON STAGE 2 PRESSURE SORE ON COCCYX, DRESSING W/SMALL AMOUNT PURULENT DRAINAGE. CALL LIGHT IN REACH.
--- NOTE | 2018-07-08 17:09 | NUR ---
SUMMARY PT RESTING QUIETLY IN BED, WAKES EASILY, REMAINS CONFUSED, C/O PAIN AND WAS MED PER EMAR ONCE TODAY, PT CONT WITH A POOR APPETITE, IS A FEEDER, PILLS IN APPLESAUCE, VSS, NO ACUTE CHANGES, WILL CONT TO MONITOR
--- NOTE | 2018-07-09 07:38 | NUR ---
SHIFT SUMMARY PT VERY LETHARGIC & UNABLE TO MAKE SENTENCES OR WORDS @ BEGINNING OF SHIFT, WOULD OPEN EYES TO VERBAL STIMULI BUT WAS UNABLE TO FOLLOW ANY DIRECTIONS SO I HAD TO HOLD ALL EVENING MEDICATIONS BECAUSE PT COULD NOT SWALLOW ANYTHING SAFELY. VSS. NO S/S OF PAIN, N/V OR SOB. AROUND 4AM PT STARTED YELLING OUT "MAMMA" ALONG W/OTHER WORDS & BECAME MORE ALERT, MEDICATED W/PRN SEROQUEL PER ORDERS SINCE SHE DID NOT RECIEVE EVENING DOSE & PT APPEARED MORE AGITATED W/YELLING OUT. PT HAS BEEN TURNED/REPOSITIONED Q2H. CALL LIGHT IS IN REACH.
[2018-07-09 09:19] LABS: Hemoglobin 12.5 g/dL (11.5-16.0)
[2018-07-09 09:47] LABS: Albumin, Blood 2.4 g/dL (3.4-5.0); Anion Gap 8 mmol/L (6-16); Blood Urea Nitrogen 30 mg/dL (8-24); Bun/Creatinine Ratio 7.9 (12.0-20.0); CO2, Blood 28 mmol/L (21-32); Calcium, Blood 10.4 mg/dL (8.5-10.1); Chloride, Blood 99 mmol/L (98-108); Creatinine, Blood 3.81 mg/dL (0.40-1.00); Glomerular Filtration Rate 12 (60-); Glucose, Blood 99 mg/dL (70-99); Phosphorus, Blood 4.7 mg/dL (2.5-4.9); Potassium, Blood 4.7 mmol/L (3.5-5.5); Sodium, Blood 135 mmol/L (136-145)
[2018-07-09 09:49] LABS: BASOPHILS ABSOLUTE AUTO 0.05 K/mm3 (0.00-0.23); BASOPHILS PERCENT AUTO 1 % (0-2); EOSINOPHILS ABSOLUTE AUTO 0.18 K/mm3 (0.00-0.68); EOSINOPHILS PERCENT AUTO 2 % (0-6); Hematocrit 40.2 % (33.0-51.0); IMMATURE GRAN ABSOLUTE AUTO 0.04 K/mm3 (0.00-0.10); IMMATURE GRAN PERCENT AUTO 0 % (0-1); LYMPHOCYTES ABSOLUTE AUTO 4.37 K/mm3 (0.84-5.20); LYMPHOCYTES PERCENT AUTO 46 % (21-46); MONOCYTES PERCENT AUTO 14 % (4-13); Mean Corpuscular HGB 30.4 pg (26.0-34.0); Mean Corpuscular HGB Conc 30.8 g/dL (31.5-36.5); Mean Corpuscular Volume 99 fL (80-100); Mean Platelet Volume 9.9 fL (9.1-12.4); NEUTROPHILS ABSOLUTE AUTO 3.61 K/mm3 (1.96-9.15); NEUTROPHILS PERCENT AUTO 38 % (41-73); Platelet Count 238 K/mm3 (150-400); RDW Coefficient Variation 18.6 % (11.7-14.2); RDW Standard Deviation 66.8 fL (35.1-46.3); Red Blood Cell Count 4.08 M/mm3 (3.80-5.20); White Blood Cell Count 9.55 K/mm3 (4.00-11.30)
--- NOTE | 2018-07-09 17:38 | NUR ---
SUMMARY PT AWAKE IN BED, HAS REMAINED CONFUSED MOST OF THE DAY, PT DID RECIEVE DIALYSIS TODAY, DIANA WELL, MORE AWAKE AND ALERT, WILL CONT TO MONITOR
--- NOTE | 2018-07-10 04:38 | NUR ---
NOC SHIFT SUMMARY PT HAS BEEN PLEASANT AND COOPERATIVE WITH CARE. HAS BEEN TALKATIVE WHEN IN ROOM THOUGH HER SPEACH IS VERY CONFUSED. SHE HAS BEEN TURNED [id number] THROUGH THE NIGHT. REPOSITOINED FREQUENTLY TO PREVENT SORE ON COCCYX AREA FROM WORSENING. SHE HAS SLEPT WELL THROUGH THE NIGHT AND ONLY WAKES DURING PT CARE. CURRENTLY APPEARS IN NO ACUTE DISTRESS. WILL CONTINUE TO MONITOR.
--- NOTE | 2018-07-10 18:45 | NUR ---
SHIFT SUMMARY NO ACUTE CHANGES WITH THE PATIENT. SHE IS STILL ACTIVELY HAVING HALLUCINATIONS. NO HEMODIALYSIS TODAY.
--- NOTE | 2018-07-11 01:06 | NUR ---
CALLING OUT AND TALKING TO SELF, REPOSITIONED, MEDICATED, TOILETED, REDIRECTED AND ATTEMPTED TO DISTRACT, HAS BEEN QUIET FOR LAST 10 MIN WILL CONTINUE TO MONITOR AND TREAT
--- NOTE | 2018-07-11 07:18 | NUR ---
orintated to self, repositioned and cleaned, powder and cream applied, call light in reach no IV room air, but required fan to move air for comfort report given to returning day shift
--- NOTE | 2018-07-11 18:37 | NUR ---
SHIFT SUMMARY PATIENT PLEASANT. NO ACUTE CONCERNS. SHE IS STILL HALLUCINATING AT THIS POINT.
--- NOTE | 2018-07-12 03:21 | NUR ---
SHIFT SUMMARY PATIENT HAD NO ACUTE CHANGES OBSERVED DURING THE SHIFT. PATIENT CALLING OUT AND YELLING INTO HALLWAY. OTHER PATIENTS REPORTED BEING DISRUPTED BY PATIENT. NYSTATIN POWER APPLIED PER EMAR. TAKES MEDICATION CRUSHED IN APPLE SAUCE. VSS/AFEBRILE. DENIES PAIN, SOB, AND N/V. NO IV ACCESS. PATIENT ABLE TO CALM DOWN LATER IN SHIFT. CALL LIGHT IN REACH. BED ALARM ACITVATED. WILL CONTINUE TO MONITOR UNTIL DAY SHIFT NURSE ASSUMES CARE.
[2018-07-12 05:33] LABS: BASOPHILS ABSOLUTE AUTO 0.06 K/mm3 (0.00-0.23); BASOPHILS PERCENT AUTO 1 % (0-2); EOSINOPHILS PERCENT AUTO 2 % (0-6); Hematocrit 46.5 % (33.0-51.0); Hemoglobin 15.1 g/dL (11.5-16.0); IMMATURE GRAN ABSOLUTE AUTO 0.09 K/mm3 (0.00-0.10); IMMATURE GRAN PERCENT AUTO 1 % (0-1); LYMPHOCYTES ABSOLUTE AUTO 4.89 K/mm3 (0.84-5.20); LYMPHOCYTES PERCENT AUTO 50 % (21-46); MONOCYTES ABSOLUTE AUTO 1.22 K/mm3 (0.16-1.47); MONOCYTES PERCENT AUTO 12 % (4-13); Mean Corpuscular HGB 30.7 pg (26.0-34.0); Mean Corpuscular HGB Conc 32.5 g/dL (31.5-36.5); Mean Platelet Volume 10.4 fL (9.1-12.4); NEUTROPHILS PERCENT AUTO 35 % (41-73); Platelet Count 163 K/mm3 (150-400); RDW Coefficient Variation 18.4 % (11.7-14.2); RDW Standard Deviation 63.3 fL (35.1-46.3); Red Blood Cell Count 4.92 M/mm3 (3.80-5.20); White Blood Cell Count 9.86 K/mm3 (4.00-11.30)
[2018-07-12 05:35] LABS: Mean Corpuscular Volume 95 fL (80-100)
[2018-07-12 06:04] LABS: Albumin, Blood 2.4 g/dL (3.4-5.0); Albumin/Globulin Ratio 0.5 (0.8-1.8); Bilirubin, Total 1.3 mg/dL (0.1-1.0); Calcium, Blood 10.6 mg/dL (8.5-10.1); Creatinine, Blood 4.46 mg/dL (0.40-1.00); Potassium, Blood 4.6 mmol/L (3.5-5.5); Total Protein, Blood 7.4 g/dL (6.4-8.2)
--- NOTE | 2018-07-12 16:06 | NUR ---
SUMMARY PT IS CALM, GENERALLY PLEASANT, SMILING HOWEVER CONFUSED/DISORIENTED, MAKES BIZZARE STATEMENTS. HX ETOH DEMENTIA. ESRD-DIALYSIS PT, SHE WENT DOWN THIS AM FOR HD. GFR 10. CARDIAZEM & METOPROLOL HELD/METAL GRADER & PARAMETERS, BP 83/39, HR 63. THIS AFTERNOON AFTER DIALYSIS BP 129/77, HR 94. DR RAMIREZ IN TO SEE HER STATE WILL REVIEW BP MEDS & ADJUST IF NEEDED. DR WILCOX DECREASE METOPROLOL THIS AM. DR ABAD CALL TODAY STATE INCREASE SEROQUEL D/T POOR SLEEP. NO S/S PAIN @ REST HOWEVER R SHOULDER PAINFUL WITH MOVEMENT. BAKING POWDER MIXER STATE GUARDIANSHIP COMPLETED HOWEVER PLACEMENT CONTINUES COMPLICATED, NO D/C PENDING D/C DATE @ THIS TIME.
--- NOTE | 2018-07-13 03:58 | NUR ---
Shift Summary: Pt slept well after getting seroquel last pm. No c/o pain after getting one norco last pm. Neck remins very contracted to the side maiking it difficult to drink. Pt has minimal urine output secondary to dialysis and end stage kidney disease. Pt on contact isolation.
[2018-07-13 09:58] LABS: BASOPHILS ABSOLUTE AUTO 0.05 K/mm3 (0.00-0.23); BASOPHILS PERCENT AUTO 1 % (0-2); EOSINOPHILS PERCENT AUTO 2 % (0-6); Hematocrit 42.2 % (33.0-51.0); Hemoglobin 13.2 g/dL (11.5-16.0); IMMATURE GRAN ABSOLUTE AUTO 0.07 K/mm3 (0.00-0.10); IMMATURE GRAN PERCENT AUTO 1 % (0-1); LYMPHOCYTES ABSOLUTE AUTO 4.57 K/mm3 (0.84-5.20); LYMPHOCYTES PERCENT AUTO 46 % (21-46); MONOCYTES ABSOLUTE AUTO 1.35 K/mm3 (0.16-1.47); MONOCYTES PERCENT AUTO 14 % (4-13); Mean Corpuscular HGB Conc 31.3 g/dL (31.5-36.5); Mean Platelet Volume 10.2 fL (9.1-12.4); NEUTROPHILS ABSOLUTE AUTO 3.65 K/mm3 (1.96-9.15); NEUTROPHILS PERCENT AUTO 37 % (41-73); Platelet Count 233 K/mm3 (150-400); RDW Coefficient Variation 18.5 % (11.7-14.2); RDW Standard Deviation 67.7 fL (35.1-46.3); Red Blood Cell Count 4.26 M/mm3 (3.80-5.20); White Blood Cell Count 9.89 K/mm3 (4.00-11.30)
[2018-07-13 09:59] LABS: Mean Corpuscular Volume 99 fL (80-100)
[2018-07-13 10:20] LABS: Bun/Creatinine Ratio 7.7 (12.0-20.0); Calcium, Blood 10.1 mg/dL (8.5-10.1); Creatinine, Blood 3.12 mg/dL (0.40-1.00); Potassium, Blood 3.9 mmol/L (3.5-5.5)
--- NOTE | 2018-07-13 18:32 | NUR ---
PHOTO DOC TAKEN OF PRESSURE SORE TO COCCYX AND DRESSING CHANGED. VSS THIS SHIFT. PATIETN C/O BACK/NECK AND R SHOULDER PAIN, HYDROCODONE GIVEN TO TREAT. REPOSITIONING PATIENT Q2 HOURS. PATIENT EATING SMALL AMOUNTS OF MECHANICAL SOFT DIET. 2 LARGE SOFT BM'S THIS SHIFT, VERY LITTLE U/O. PATIENT DID NOT HAVE DIALYSIS TODAY. NOACUTE CHANGES THIS SHIFT, AWAITING SNF PLACEMENT.
[2018-07-14 05:58] LABS: Albumin, Blood 2.3 g/dL (3.4-5.0); Anion Gap 10 mmol/L (6-16); Blood Urea Nitrogen 38 mg/dL (8-24); Bun/Creatinine Ratio 9.9 (12.0-20.0); CO2, Blood 27 mmol/L (21-32); Calcium, Blood 10.1 mg/dL (8.5-10.1); Chloride, Blood 99 mmol/L (98-108); Creatinine, Blood 3.84 mg/dL (0.40-1.00); Glomerular Filtration Rate 12 (60-); Glucose, Blood 103 mg/dL (70-99); Phosphorus, Blood 4.8 mg/dL (2.5-4.9); Sodium, Blood 136 mmol/L (136-145)
--- NOTE | 2018-07-14 05:58 | NUR ---
Shift summary. Pt slept after getting seroquel at hs. Pt agitated and screaming out until then. Confused and making no sense. [place] given for back pain at 0500 with some relief.
--- NOTE | 2018-07-14 15:55 | NUR ---
SHIFT SUMMARY NO ACUTE CHANGES. PATIENT HAD DIALYSIS TODAY. MEDICATIONS ADJUSTED DUE TO HYPOTENSION. PATIENT ALERT BUT WITH EPISODES OF CONFUSION. PATIENT CONTINUES TO NEED PLACEMENT. CARE MANAGEMENT WORING ON DISCHARGE PLAN. CALL LIGHT IN REACH, WILL CONTINUE TO MONITOR.
--- NOTE | 2018-07-14 21:34 | NUR ---
Cecilio withheld- BP 92/56 pulse 80
--- NOTE | 2018-07-15 03:40 | NUR ---
sHIFT SUMMARY: pT GIVEN TYLENOL AND SEROQUEL AT HS. pT HAS BEEN sleeping since getting her hs meds. Pt very upset if you try to turn her during the night. Pt remains very confused but will take meds crushed in applesauce. No urine output so far tonight.
[2018-07-15 05:37] LABS: BASOPHILS ABSOLUTE AUTO 0.03 K/mm3 (0.00-0.23); BASOPHILS PERCENT AUTO 0 % (0-2); EOSINOPHILS ABSOLUTE AUTO 0.17 K/mm3 (0.00-0.68); EOSINOPHILS PERCENT AUTO 2 % (0-6); Hemoglobin 11.6 g/dL (11.5-16.0); IMMATURE GRAN ABSOLUTE AUTO 0.04 K/mm3 (0.00-0.10); IMMATURE GRAN PERCENT AUTO 1 % (0-1); LYMPHOCYTES ABSOLUTE AUTO 3.54 K/mm3 (0.84-5.20); LYMPHOCYTES PERCENT AUTO 46 % (21-46); MONOCYTES ABSOLUTE AUTO 1.19 K/mm3 (0.16-1.47); MONOCYTES PERCENT AUTO 16 % (4-13); Mean Corpuscular HGB 30.9 pg (26.0-34.0); Mean Corpuscular HGB Conc 30.5 g/dL (31.5-36.5); Mean Corpuscular Volume 101 fL (80-100); Mean Platelet Volume 9.9 fL (9.1-12.4); NEUTROPHILS PERCENT AUTO 35 % (41-73); Platelet Count 186 K/mm3 (150-400); RDW Coefficient Variation 18.6 % (11.7-14.2); Red Blood Cell Count 3.75 M/mm3 (3.80-5.20); White Blood Cell Count 7.67 K/mm3 (4.00-11.30)
[2018-07-15 06:03] LABS: Bun/Creatinine Ratio 7.9 (12.0-20.0); Calcium, Blood 9.9 mg/dL (8.5-10.1); Creatinine, Blood 2.65 mg/dL (0.40-1.00); Potassium, Blood 3.8 mmol/L (3.5-5.5)
--- NOTE | 2018-07-15 18:34 | NUR ---
NO CHANGES TO PATIENT THIS SHIFT. SHE CONTINUES TO BE CONFUSED AND OFTEN ANGRY BUT CALMS EASILY . NO COMPLAINTS THIS SHIFT.
--- NOTE | 2018-07-16 05:07 | NUR ---
SHIFT SUMMARY PT HAS BEEN HAVING ELEVATED PULSE RATE THROUGHOUT SHIFT. PT PULSE IS RAPID AND IRREGULAR. PT WAS GIVEN HER LOPRESSOR THIS EVENING BUT AM DOSE WAS HELD. PT IS NOT EXPERIENCING ANY CX PAIN OR SOB. WILL CONTINUE TO MONITOR AND REPORT TO DAY RN. PT IS AWAKE CURRENTLY AND IN NO DISTRESS. CALL LIGHT IN REACH AND BED ALARM ON.
[2018-07-16 06:04] LABS: Bun/Creatinine Ratio 8.5 (12.0-20.0); Calcium, Blood 10.1 mg/dL (8.5-10.1); Creatinine, Blood 3.53 mg/dL (0.40-1.00); Potassium, Blood 4.2 mmol/L (3.5-5.5)
--- NOTE | 2018-07-16 17:30 | NUR ---
PATIENT HAD DIALYSIS TODAY. SHE WAS IN RARE FORM AND WAS SMILING AND LAUGHING WITH STAFF FOR SOME OF THE DAY. NO OTHER CHANGES NOTED THIS SHIFT. AWAITING PLACEMENT.
--- NOTE | 2018-07-17 16:49 | NUR ---
SHIFT SUMMARY- PT A/O TO PERSON AND PLACE, PT HAS INCREASED CONFUSION AT TIMES AND CALLS OUT. PT MEDICATED X1 WITH NORCO FOR RIGHT SHOULDER PAIN. LS DIMINISHED, ON RA. HR IRREG, TACHY THIS AM SCHEDULE MEDS GIVEN. BEDBATH COMPLETED AND NEW MEPILEX PLACED TO COCCYX WITH PRESSURE ULCER, PICTURE IN CHART. POOR PO INTAKE. PT AWAITING PLACEMENT. NO OTHER ACUTE CHANGES THIS SHIFT.
--- NOTE | 2018-07-18 06:14 | NUR ---
PATIENT SLEPT THROUGH MUCH OF THE SHIFT. PAIN MEDS GIVEN FOR PAIN PER EMAR. NOTHING NEW TO REPORT.
--- NOTE | 2018-07-18 17:08 | NUR ---
SHIFT SUMMARY- PT A/O TO SELF ONLY, MORE CONFUSED TODAY BUT COOPERATIVE WITH CARE. PT MEDICATED X1 WITH NORCO FOR LOWER BACK PAIN. LS DIMINISHED ON RA. HR IRREG, HX AFIB. DRESSING TO PRESSURE ULCER ON COCCYX, C/D/I. PT A FEEDER BUT STILL POOR INTAKE. NO OTHER ACUTE CHANGES THIS SHIFT. AWAITING GUARDIAN AND PLACEMENT.
--- NOTE | 2018-07-18 21:28 | NUR ---
PATIENT IN BED C/O PAIN AND MED ADMINISTERED PER EMAR; GAVE BEDTIME MEDS AND OFFERED TO REPOSITION BUT PATIENT REFUSED TO TURN AT THIS TIME. NO IV PRESENT, DR IS AWARE. PATIENT IS PLESANTLY CONFUSED AND IN NO APPARENT DISTRESS.
[2018-07-19 12:22] LABS: Hematocrit 34.8 % (33.0-51.0); Hemoglobin 10.9 g/dL (11.5-16.0)
--- NOTE | 2018-07-19 18:41 | NUR ---
SHIFT SUMMARY PT HAD DIALYSIS THIS SHIFT. MEDICATED FOR PAIN X1 THIS SHIFT. PT ANGRY AT TIMES AND CONFUSED AT TIMES. NO ACUTE CHANGES THIS SHIFT. PT WAITING FOR PLACEMENT. CALL LIGHT IN REACH. WILL CONTINUE TO MONITOR AND REPORT TO ONCOMING RN.
--- NOTE | 2018-07-20 07:16 | NUR ---
07/20/18 0600 SLEEPING WELL. VITALS STABLE THIS AM. REPOSITIONED Q 2 HOURS WITH [facility]. ENCOURAGED ORAL INTAKE BUT ONLY TAKES SIPS AT A TIME.
--- NOTE | 2018-07-20 19:00 | NUR ---
NO NOTEABLE CHANGES THIS SHIFT. 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 LARGE LUMP IN KEFT SHOULDER, LIDODERM PLACED. CRUSHED PT'S MEDS AND GAVE THEM IN APPLESAUSE. NO DIALYSIS TODAY BUT WILL HAVE TOMORROW.
--- NOTE | 2018-07-21 05:53 | NUR ---
VSS, AFEBRILE, ALERT BUT CONFUSED/DELUSIONAL, C/O HALLUCINATIONS, SLEPT WELL OVERNOC, NO SIGNIFICANT CHANGES NOTED. WILL REPORT TO ON-COMING SHIFT.
[2018-07-21 06:39] LABS: Albumin, Blood 2.2 g/dL (3.4-5.0); Albumin/Globulin Ratio 0.4 (0.8-1.8); Bilirubin, Total 1.1 mg/dL (0.1-1.0); Bun/Creatinine Ratio 8.7 (12.0-20.0); Calcium, Blood 10.5 mg/dL (8.5-10.1); Creatinine, Blood 3.55 mg/dL (0.40-1.00); Globulin, Blood 5.2 g/dL (2.2-4.0); Magnesium, Blood 2.3 mg/dL (1.6-2.4); Phosphorus, Blood 4.4 mg/dL (2.5-4.9); Potassium, Blood 4.8 mmol/L (3.5-5.5); Total Protein, Blood 7.4 g/dL (6.4-8.2)
[2018-07-21 07:01] LABS: BASOPHILS ABSOLUTE AUTO 0.07 K/mm3 (0.00-0.23); BASOPHILS PERCENT AUTO 1 % (0-2); EOSINOPHILS ABSOLUTE AUTO 0.21 K/mm3 (0.00-0.68); EOSINOPHILS PERCENT AUTO 2 % (0-6); Hematocrit 37.7 % (33.0-51.0); Hemoglobin 12.1 g/dL (11.5-16.0); IMMATURE GRAN ABSOLUTE AUTO 0.08 K/mm3 (0.00-0.10); IMMATURE GRAN PERCENT AUTO 1 % (0-1); LYMPHOCYTES ABSOLUTE AUTO 4.02 K/mm3 (0.84-5.20); LYMPHOCYTES PERCENT AUTO 41 % (21-46); MONOCYTES ABSOLUTE AUTO 1.04 K/mm3 (0.16-1.47); MONOCYTES PERCENT AUTO 11 % (4-13); Mean Corpuscular HGB 31.3 pg (26.0-34.0); Mean Corpuscular HGB Conc 32.1 g/dL (31.5-36.5); Mean Platelet Volume 10.4 fL (9.1-12.4); NEUTROPHILS ABSOLUTE AUTO 4.45 K/mm3 (1.96-9.15); NEUTROPHILS PERCENT AUTO 45 % (41-73); Platelet Count 216 K/mm3 (150-400); RDW Coefficient Variation 17.9 % (11.7-14.2); RDW Standard Deviation 63.7 fL (35.1-46.3); Red Blood Cell Count 3.87 M/mm3 (3.80-5.20); White Blood Cell Count 9.87 K/mm3 (4.00-11.30)
[2018-07-21 07:03] LABS: Mean Corpuscular Volume 97 fL (80-100)
--- NOTE | 2018-07-21 18:35 | NUR ---
PT. SITTING IN BED PICKING AT MEAL. PT. DOES NOT EAT MUCH AT A TIME. PT. WENT TO DIALYSIS TODAY AND THEY REMOVED 200 CC OF FLUID BUT MOSTLY CLEANED HER BLOOD. PT. IS STIL CONFUSED AND CALLING OUT FOR HER MOMMA AND [place] PEOPLE, WHEN GOING IN TO SEE WHAT SHE WANTS SHE DOES NOT GIVE AN ANSWER. BEFORE GOING TO DIALYSIS SHE WANTED ME TO PUT ALL HER BOXES ON THE BED SO SHE CAN GO THROUGH THEM. TOLD HER THERE WEREN'T ANY BOXES IN ROOM AT WHICH TIME SHE STARTED CALLING ME A LIAR. HER CONFUSION SEEMS GREATER TO ME TODAY THAN IT WAS YESTERDAY.
--- NOTE | 2018-07-22 06:39 | NUR ---
Pt agitated at beginning of shift but was able to get sleep after pm meds given. [place] given for back pain. pt repositioned x 3 during night.
--- NOTE | 2018-07-22 10:42 | NUR ---
PATIENT DELUSIONS THE PATIENT PRESENTED THIS MORNING ASKING ABOUT THE CAT RUNNING AROUND THE ROOM, THE DOG THAT WAS MAKING NOISE AT THE DOOR AND IF I WOULD HAND HER THE BLACK AND WHITE CHECKERED THING WITH THE RED EDGINGS ON THE TABLE, NOTHING WAS ON THE TABLE, EXCEPT A PLASTIC CUP. WILL CONTINUE TO MONITER.
--- NOTE | 2018-07-22 16:18 | NUR ---
SHIFT SUMMARY THE PATIENT PRESENTED THIS SHIFT A&O TO SELF, WITH VITALS THAT WERE WNL, LUNGS SOUNDS WERE DIMINISHED THROUGHTOUT. THE PATIENT HAS SLEPT MOST OF THE SHIFT, WITH ONE TIME OF GETTING SOME ANXIETY AND WAS GIVEN 25 MG OF SEROQUEL. THE PATIENT IS AWAKE AND SEEMS IN A BRITER MOOD. THE PATIENT IS LAYING QUITELY IN HER BED, WILL CONTINUE TO MONITOR.
--- NOTE | 2018-07-23 04:51 | NUR ---
73 Y/O FEMALE RESTED COMFORTABLY ALL EVENING. PTS MEDICATED X 1 NORCO FOR GENERALIZED PIAN AT BEGINNING OF SHIFT WITH RELIEF FELT. PTS ABLE TO FOLLOW VERY SIMPLE VERBAL COMMANDS. PTS BED ALARM APPLIED, CALL LIGHT AT SIDE, BED IN LOW POSITION.
--- NOTE | 2018-07-23 16:44 | NUR ---
SHIFT SUMMARY THE PATIENT PRESENT ED THIS SHIFT WITH VITALS WNL, LUNG SOUNDS THAT WERE DIMINISHED THROUGHOUT AND A&O TO SELF. THE PATIENT WENT DOWN TO DIALYSIS THE MORNING AT 0915 AND CAME BACK TO THE FLOOR AFTER 1300. THE PATIENT HAS NOT HAD A PICTURE OF HER COCCYX WOUND FOR SEVERAL DAYS, SO A PICTURE WAS TAKEN TODAY. ALSO THE PATIENT HAS NOT HAD A B/M FOR A WHILE AND WAS GIVEN A SUPPOSITORY TODAY. THE PATIENT IS RESTING AT THIS TIME, WILL CONTINUE TO MONITOR.
--- NOTE | 2018-07-24 06:18 | NUR ---
VSS, AFEBRILE, ALERT, CONFUSED, HALLUCINATING, IRRITABLE, PT NEEDED TO MAKE A BM AND WAS SUCCESSFUL AT THAT PRIOR TO GOING TO SLEEP. PT SLEPT WELL OVERNOC. NO COMPLAINTS. WILL REPORT TO ON-COMING SHIFT.
--- NOTE | 2018-07-24 18:42 | NUR ---
SHIFT SUMMARY PT AHS HAD NO ACUTE CHANGES THIS SHIFT, MEDICATED 1X FOR PAIN, 1X FOR AGITATION, NO OTHER COMPLAINTS/CONCERNS; PT IS BEDRESTING AT THIS TIME, WILL CONT TO MONTIOR UNTIL REPORT GIVEN TO NOC RN.
--- NOTE | 2018-07-24 23:15 | NUR ---
07/24/18 2310 Awakened pt for meds and became hostile towards me. AT FIRST SHE REFUSED MEDS BUT AFTER A FEW MINUTES SHE AGREED TO TAKE THEM IN APPLESAUCE. PUSHING RN WITH HANDS AND YELLING,"LEAVE ME ALONE!" WILL MONIOTR THROUGHTOUT NIGHT.
--- NOTE | 2018-07-25 07:13 | NUR ---
07/25/18 0600 SLEEPING NOW. MEDICATED EARLIER FOR GENERAL PAIN AND ANXIETY.
--- NOTE | 2018-07-25 17:00 | NUR ---
SHIFT SUMMARY PT HAS HAD NO ACUTE CHANGES THIS SHIFT, MEDICATED 1X FOR PAIN, 1X FOR AGITATION. PT IS BEDRESTING AT THIS TIME, WILL CONT TO MONITOR UNTIL REPORT GIVEN TO KEITH RN.
--- NOTE | 2018-07-26 06:28 | NUR ---
73 year old female appears older than actual age. has dialysis lt forarm av fistula with good thrill and bruit. She is alert and confused. She does notuse call morales. hollers out at times. Does not attempt to climb out of bed. Fall precautions continue with bed alarm activated. cooperative with meds crushed and given in applesauce. medicated for neck pain x 1 with norco 5/325 mg tab x 1 given with helpful effect. has cervical contracture.
[2018-07-26 08:50] LABS: BASOPHILS ABSOLUTE AUTO 0.03 K/mm3 (0.00-0.23); BASOPHILS PERCENT AUTO 0 % (0-2); EOSINOPHILS ABSOLUTE AUTO 0.14 K/mm3 (0.00-0.68); EOSINOPHILS PERCENT AUTO 2 % (0-6); Hematocrit 32.2 % (33.0-51.0); IMMATURE GRAN ABSOLUTE AUTO 0.06 K/mm3 (0.00-0.10); IMMATURE GRAN PERCENT AUTO 1 % (0-1); LYMPHOCYTES ABSOLUTE AUTO 3.23 K/mm3 (0.84-5.20); LYMPHOCYTES PERCENT AUTO 36 % (21-46); MONOCYTES ABSOLUTE AUTO 1.03 K/mm3 (0.16-1.47); MONOCYTES PERCENT AUTO 12 % (4-13); Mean Corpuscular HGB 30.9 pg (26.0-34.0); Mean Corpuscular HGB Conc 31.1 g/dL (31.5-36.5); Mean Corpuscular Volume 99 fL (80-100); Mean Platelet Volume 9.2 fL (9.1-12.4); NEUTROPHILS ABSOLUTE AUTO 4.49 K/mm3 (1.96-9.15); NEUTROPHILS PERCENT AUTO 50 % (41-73); Platelet Count 300 K/mm3 (150-400); RDW Coefficient Variation 17.8 % (11.7-14.2); RDW Standard Deviation 65.1 fL (35.1-46.3); Red Blood Cell Count 3.24 M/mm3 (3.80-5.20); White Blood Cell Count 8.98 K/mm3 (4.00-11.30)
[2018-07-26 09:04] LABS: Anion Gap 6 mmol/L (6-16); Blood Urea Nitrogen 37 mg/dL (8-24); Bun/Creatinine Ratio 9.1 (12.0-20.0); CO2, Blood 32 mmol/L (21-32); Calcium, Blood 10.6 mg/dL (8.5-10.1); Chloride, Blood 105 mmol/L (98-108); Creatinine, Blood 4.06 mg/dL (0.40-1.00); Glomerular Filtration Rate 11 (60-); Glucose, Blood 89 mg/dL (70-99); Potassium, Blood 3.8 mmol/L (3.5-5.5); Sodium, Blood 143 mmol/L (136-145)
--- NOTE | 2018-07-26 17:12 | NUR ---
Shift Summary A/O to self. Still having visual and auditory hallucinations. Medicated for pain per EMAR x 1 this shift. Received HD this am. Currently resting comfortably in bed. Will monitor until shift report given to KEITH HART.
--- NOTE | 2018-07-26 18:28 | NUR ---
STUDENT HAS CARED FOR PT TODAY. PLEASE REFER TO STUDENT NOTES FOR SHIFT SUMMARY.
--- NOTE | 2018-07-27 04:25 | NUR ---
SHIFT SUMMARY: PT IS ALERT AND ORIENTED TO SELF. PT IS COOPERATIVE WITH CARE. PT HAS HALLUCINATIONS, TALKING TO PEOPLE WHO ARE NOT IN THE ROOM, BASELINE DEMENTIA. PT IS ON BEDREST, NOT OUT OF BED OVERNIGHT. PT SHOWS NO S/S FOR PAIN, NAUSEA, VOMITING, OR SOB. PT TOOK MEDS CRUSHED IN APPLESAUCE WITHOUT COMPLICATION. AWAITING PLACEMENT. NO ACUTE CHANGES OR COMPLICATIONS THIS SHIFT. WILL REPORT TO DAY NURSE.
--- NOTE | 2018-07-27 18:19 | NUR ---
SHIFT SUMMARY PT A&O TO SELF. PT COOPERATIVE WITH CARE. PT CONTINUES TO HAVE AUDITORY AND VISUAL HALLUCINATIONS. PT DENIES PAIN, SOB AND N/V DURING SHIFT. NO DIALYSIS TODAY, PT HAD IT YESTERDAY. ELEVATED HR THIS AM, MEDICATED WITH SCHEDULE CARDISEM, WITH POSITIVE RESULTS. OTHER VSS. NO OTHER ACUTE CHANGES NOTED DURING SHIFT. WILL CONTINUE TO MONITOR UNTIL REPORT GIVEN TO ONCOMING RN.
--- NOTE | 2018-07-28 05:45 | NUR ---
SHIFT SUMMARY PT IS A 73 Y/O FEMALE, ADMITTED FOR TOXIC ENCEPHALOPATHY. THE PT IS VERY CONFUSED, A&O X SELF ONLY, WITH VISUAL AND AUDIO HALLUCINATIONS. DURING AM VITALS, PT WAS NOTED TO HAVE A HEART RATE IN THE 140S WITH KNOWN AFIB. ON RECHECK AN HOUR LATER, THE PT STILL HAD A RATE OF 140-150S. THE HOSPITALIST DR DALTON WAS CONSULTED, IV METOPROLOL WAS ORDERED AND A TELE FOR SHORT TERM MONITORING. HOWEVER, THE PT DOES NOT HAVE AN IV, AND STAFF WAS UNABLE TO PLACE ONE TO GIVE THE IV MEDS. DR DALTON WAS CONSULTED, AND ORDERED HER SCHEDULED CARDIZEM TO BE GIVEN EARLY. AT THE TIME THE PO CARDIZEM WAS GIVEN, THE PT'S HEART RATE HAD ELEVATED TO THE 160S PER THE TELE MONITOR. AN HOUR LATER ON RECHECK, PT'S HEART RATE WAS STILL ELEVATED BUT HAD COME DOWN TO THE 120-130S PER THE TELE MONITOR. TELE REMAINS IN PLACE TO CONTINUE MONITORING HEART RATE. ALL OTHER VITALS REMAINED STABLE. SHE DID REPORT PAIN IN HER R SHOULDER AND BACK, FOR WHICH SHE WAS MEDICATED ONCE WITH PRN NORCO. NO OTHER ACUTE CHANGES IN PT CONDITION NOTED. WILL CONTINUE TO MONITOR AND TREAT PER EMAR.
--- NOTE | 2018-07-28 18:35 | NUR ---
SHIFT SUMMARY- PT C/O NECK/SHOULDER PAIN THIS AM. MEDS GIVEN PER EMAR. DENIES SOB. RESP E/U ON RA. DENIES N/V. 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 PT HAD DIALYSIS THIS AM. BEDREST AT THIS TIME. TURNS Q2H. NO OTHER SIGNIFICANT CHANGES THIS SHIFT.
[2018-07-28 19:04] LABS: BASOPHILS ABSOLUTE AUTO 0.05 K/mm3 (0.00-0.23); BASOPHILS PERCENT AUTO 1 % (0-2); EOSINOPHILS ABSOLUTE AUTO 0.08 K/mm3 (0.00-0.68); EOSINOPHILS PERCENT AUTO 1 % (0-6); Hematocrit 35.3 % (33.0-51.0); Hemoglobin 10.7 g/dL (11.5-16.0); IMMATURE GRAN PERCENT AUTO 1 % (0-1); LYMPHOCYTES ABSOLUTE AUTO 3.24 K/mm3 (0.84-5.20); LYMPHOCYTES PERCENT AUTO 34 % (21-46); MONOCYTES ABSOLUTE AUTO 1.11 K/mm3 (0.16-1.47); MONOCYTES PERCENT AUTO 12 % (4-13); Mean Corpuscular HGB 31.2 pg (26.0-34.0); Mean Corpuscular HGB Conc 30.3 g/dL (31.5-36.5); Mean Corpuscular Volume 103 fL (80-100); Mean Platelet Volume 9.2 fL (9.1-12.4); NEUTROPHILS ABSOLUTE AUTO 5.07 K/mm3 (1.96-9.15); NEUTROPHILS PERCENT AUTO 53 % (41-73); Platelet Count 316 K/mm3 (150-400); RDW Coefficient Variation 17.3 % (11.7-14.2); Red Blood Cell Count 3.43 M/mm3 (3.80-5.20); White Blood Cell Count 9.65 K/mm3 (4.00-11.30)
[2018-07-28 19:23] LABS: Anion Gap 6 mmol/L (6-16); Blood Urea Nitrogen 12 mg/dL (8-24); Bun/Creatinine Ratio 7.3 (12.0-20.0); CO2, Blood 29 mmol/L (21-32); Calcium, Blood 9.8 mg/dL (8.5-10.1); Chloride, Blood 101 mmol/L (98-108); Creatinine, Blood 1.64 mg/dL (0.40-1.00); Glomerular Filtration Rate 33 (60-); Glucose, Blood 82 mg/dL (70-99); Phosphorus, Blood 2.1 mg/dL (2.5-4.9); Potassium, Blood 3.8 mmol/L (3.5-5.5); Sodium, Blood 136 mmol/L (136-145)
--- NOTE | 2018-07-29 01:59 | NUR ---
TACHYCARDIA. TELE IS CALLING TO REPORT THAT THE PT HAS BEEN SUSTAINING A HR IN THE ONE-TEENS BUT IS NOW SUSTAINING A HR IN THE 120'S. PT HAS HAD TWO ONE-TIME ORDERS OF IVP LOPRESSOR YESTERDAY, LIKELY BECAUSE OF TACHYCARDIA. PT'S BP IS NOW: 101/66 AND PULSE 91. PT REMAINS ASYMPTOMATIC. DR DALTON WAS NOTIFIED, NO NEW ORDERS AT THIS TIME. WILL CONTINUE TO MONITOR.
--- NOTE | 2018-07-29 05:27 | NUR ---
VSS, AFEBRILE, ALERT, CONFUSED, HALLUCIANTING, ARGUING LOUDLY W/HER HALLUCINATIONS, SPITS OUT HER MEDS, OFTEN RESISTANT TO CARE, PT HAD AN EPISODE OF TACHYCARDIA W/ HR IN THE 120'S, MD AWARE, NO NEW ORDERS AT THIS TIME. NO SIGNIFICANT CHANGES NOTED. WILL REPORT TO ON-COMING SHIFT.
--- NOTE | 2018-07-29 16:46 | NUR ---
1600 PATIENT DISCHARGED TO [facility] . [facility] CAME AND TOOK HER VIA AMBULANCE. PATIENTS BELONGINS WERE PACKED BY AIDE. THIS NURSE GAVE REPORT TO YVETTE HART AT [facility]. MED LIST SENT OVER VIA FAX.
[2018-07-29] MEDS ORDERED: DILTIAZEM ER240 MG PO (16:49)
[2018-07-29] MEDS ORDERED: QUET300 PO (16:49)
[2018-07-29] MEDS ORDERED: DOCU100 PO (16:50)
[2018-07-29] MEDS ORDERED: ELIQUIS2.5 MG PO (16:50)
[2018-07-29] MEDS ORDERED: BISA10S PR (16:50)
[2018-07-29] MEDS ORDERED: HYDR1TAB94 PO (16:51)
[2018-07-29] MEDS ORDERED: LIDOCAINE PAIN1 EACH TOP (16:51)
[2018-07-29] MEDS ORDERED: METO50 PO (16:53)
[2018-07-29] MEDS ORDERED: Pedi-Dri 100,0060 GM TOP (16:53)
[2018-07-29 22:07] LABS: HBSAG SCREEN Negative (Negative); HEP B CORE AB, TOT Negative (Negative)
== END 2018-07-29 16:12 | DRG 853 ==
LOC: ER 07:15 → PCU 12:22 → MEDS 12:22 → PCU 13:39 → MEDS 05-24 22:03
PROVIDERS: Emergency Medicine; Family Medicine; Hospitalist; Internal Medicine; Internal Medicine Endocrinology, Diabetes & Metabolism; Internal Medicine Infectious Disease; Internal Medicine Nephrology; Orthopaedic Surgery; Pharmacist; Student in an Organized Health Care Education/Training Program; ADMIT Family Medicine
PROC: 5A1D70Z Performance of Urinary Filtration, Intermittent, Less than 6 Hours Per Day (ICD-10-PCS; principal; 2018-05-13)
PROC: 0H9BXZX Drainage of Right Upper Arm Skin, External Approach, Diagnostic (ICD-10-PCS; 2018-05-23)
PROC: 0RBJ0ZZ Excision of Right Shoulder Joint, Open Approach (ICD-10-PCS; 2018-05-26)
DX: A41.02 Sepsis due to Methicillin resistant Staphylococcus aureus (principal); G92 Toxic encephalopathy; N18.6 End stage renal disease; J96.11 Chronic respiratory failure with hypoxia; I12.0 Hypertensive chronic kidney disease with stage 5 chronic kidney disease or end stage renal disease; N39.0 Urinary tract infection, site not specified; I69.354 Hemiplegia and hemiparesis following cerebral infarction affecting left non-dominant side; F02.81 Dementia in other diseases classified elsewhere, unspecified severity, with behavioral disturbance; E87.1 Hypo-osmolality and hyponatremia; M00.9 Pyogenic arthritis, unspecified; Z51.5 Encounter for palliative care; Z91.19 Patient's noncompliance with other medical treatment and regimen; J44.9 Chronic obstructive pulmonary disease, unspecified; I25.10 Atherosclerotic heart disease of native coronary artery without angina pectoris; G25.81 Restless legs syndrome; M19.90 Unspecified osteoarthritis, unspecified site; I25.2 Old myocardial infarction; F32.9 Major depressive disorder, single episode, unspecified; E11.22 Type 2 diabetes mellitus with diabetic chronic kidney disease; Z99.2 Dependence on renal dialysis; Z87.891 Personal history of nicotine dependence; E66.9 Obesity, unspecified; Z68.31 Body mass index [BMI] 31.0-31.9, adult; I48.2 Chronic atrial fibrillation; D63.1 Anemia in chronic kidney disease; E87.5 Hyperkalemia; G89.29 Other chronic pain; G30.9 Alzheimer's disease, unspecified; Z66 Do not resuscitate; S40.011A Contusion of right shoulder, initial encounter; I35.0 Nonrheumatic aortic (valve) stenosis; F39 Unspecified mood [affective] disorder; B37.2 Candidiasis of skin and nail; F01.50 Vascular dementia, unspecified severity, without behavioral disturbance, psychotic disturbance, mood disturbance, and anxiety; L89.152 Pressure ulcer of sacral region, stage 2; E88.09 Other disorders of plasma-protein metabolism, not elsewhere classified; Y93.9 Activity, unspecified
CPT/HCPCS: 36415; 36569; 70450; 71045; 73030; 73200; 80047; 80048; 80053; 80069; 80202; 81001; 82550; 82803; 82947; 83605; 83690; 83735; 83880; 83970; 84100; 84132; 84443; 84484; 85007; 85014; 85018; 85025; 85027; 85651; 86140; 86704; 87040; 87070; 87071; 87075; 87077; 87081; 87086; 87102; 87147; 87186; 87205; 87340; 89060; 92526; 92610; 93005; 93010; 93306; 94640; 94664; 94667; 94760; 94762; 96361; 96374; 97110; 97162; 97164; 97166; 97168; 97530; 98960; 99285-25; A9270-GY; C1751; J0878; J0881; J1650; J1815; J2370; J2405; J2543; J2704; J3010; J3370; J7030; J7042; J7050